=== PATIENT | male | born 1955 | race Caucasian/White ===

== ENCOUNTER 2019-12-28 09:46 | Day surgery (SDC) | payer OTHER, SELFPAY ==
[2019-12-24 20:51] VITALS: BMI 31.8
--- NOTE | 2019-12-27 09:17 | P.CONAN_ITS ---
Documented by User: Marlene Dodge 12/27/19 09:19 HPI - Anesthesia Eval Consult details Narrative: 64yo M for Colonoscopy [facility] Past Medical History Medical History (Updated 12/27/19 @ 09:17 by Marlene Dodge) Back pain Diabetes Glaucoma HTN (hypertension) Hypercholesteremia Lumbar disc disease Psoriasis Seizure disorder Shortness of breath on exertion Squamous cell carcinoma of skin of chest Surgical History Surgical History H/O nasal polypectomy History of colonoscopy Social History Social History Smoking Status: Never smoker Use of substances other than those prescribed or required for medical reasons: Yes Substance Use Frequency: Weekly Advance Directives: Yes Advance Directives Information Provided: Yes Advance Directives on File: Yes Advance Directives Date on File: 03/25/14 Meds Allergies Allergy/AdvReac Type Severity Reaction Status Date / Time shellfish derived AdvReac Intermediate Gastrointestinal Verified 12/25/19 10:00 Upset Shellfish Allergy Intermediate ITCHING/CHEST Uncoded 12/25/19 10:00 PRESSURE shellfish Allergy Unknown Uncoded 12/25/19 10:00 Home Medications Medication Instructions Recorded Confirmed Type atorvastatin 40 tab PO DAILY 12/24/19 12/24/19 History lisinopril 1 tab PO DAILY 12/24/19 12/24/19 History metformin 1 tab PO BID 12/24/19 12/24/19 History montelukast 1 tab PO DAILY 12/24/19 12/24/19 History phenytoin sodium extended 400 mg PO DAILY 12/24/19 12/24/19 History triamcinolone acetonide 1 applic TOPICAL DAILY 12/24/19 12/24/19 History aspirin 325 mg PO DAILY 12/28/19 12/28/19 History timolol maleate drp 12/28/19 History Exam Exam Date and Time: December 27, 2019 0917 Height,Weight and Vital Signs: Height 5 ft 10 in Weight 100.698 kg Pertinent Lab Results Pertinent Lab Results: Laboratory Tests 09/11/19 09/11/19 13:30 13:30 WBC 5.2 Hgb 14.6 Hct 42.6 Plt Count 146 L Sodium 139 Potassium 4.2 Chloride 101 BUN 28 H Creatinine 1.37 Assessment and Plan Assessment Anesthesia Assessment: Chart Reviewed Documented by User: Bibi Márquez 12/28/19 11:57 PMFSH Past Medical History Medical History (Updated 12/27/19 @ 09:17 by Marlene Dodge) Back pain Diabetes Glaucoma HTN (hypertension) Hypercholesteremia Lumbar disc disease Psoriasis Seizure disorder Shortness of breath on exertion Squamous cell carcinoma of skin of chest Family History Family history of problems with anesthesia: No Surgical History Surgical History H/O nasal polypectomy History of colonoscopy History of Problems with Anesthesia: No Social History Social History Smoking Status: Never smoker Use of substances other than those prescribed or required for medical reasons: Yes Substance Use Frequency: Weekly Advance Directives: Yes Advance Directives Information Provided: Yes Advance Directives on File: Yes Advance Directives Date on File: 03/25/14 Meds Allergies Allergy/AdvReac Type Severity Reaction Status Date / Time shellfish derived AdvReac Intermediate Gastrointestinal Verified 12/25/19 10:00 Upset Shellfish Allergy Intermediate ITCHING/CHEST Uncoded 12/25/19 10:00 PRESSURE shellfish Allergy Unknown Uncoded 12/25/19 10:00 Home Medications Medication Instructions Recorded Confirmed Type atorvastatin 40 tab PO DAILY 12/24/19 12/24/19 History lisinopril 1 tab PO DAILY 12/24/19 12/24/19 History metformin 1 tab PO BID 12/24/19 12/24/19 History montelukast 1 tab PO DAILY 12/24/19 12/24/19 History phenytoin sodium extended 400 mg PO DAILY 12/24/19 12/24/19 History triamcinolone acetonide 1 applic TOPICAL DAILY 12/24/19 12/24/19 History aspirin 325 mg PO DAILY 12/28/19 12/28/19 History timolol maleate drp 12/28/19 History Exam Height,Weight and Vital Signs: Vital Signs Temp Pulse Resp BP Pulse Ox 12/28/19 10:15 98 F 77 16 153/91 H 97 Pertinent Lab Results Pertinent Lab Results: Lab Results 12/28/19 Range/Units 10:10 POC Glucose 182 H (60-115) mg/dL Airway Mallampati Class: II TM Dist: >3cm Neck ROM: Full Heart: RRR Lungs: CTAB Assessment and Plan Assessment Anesthesia Assessment: Anesthesia Plan Discussed and Chart Reviewed Final Anesthetic Review NPO: Yes ASA Class: III Final Preanesthetic Review: No Changes in Pt Med Stat, Meds/Allgs Chart Reviewed, Consent Obtained/Reviewed and Anes Risks/Benef Reviewed Patient Risk: Intermediate Anesthetic Plan Anesthetic Plan: MAC: Disposition: Standard PACU
[2019-12-28 10:14] LABS: Glucose, Whole Blood 182 mg/dL (60-115)
[2019-12-28 10:15] VITALS: BP 153/91; PULSE 77; RESP 16; TEMP 36.6; O2SAT 97
--- NOTE | 2019-12-28 11:19 | MHC.SHP ---
Pre-Procedural Eval Section A The patient is an INPATIENT: No Changes since office visit: No Cold of Flu in the past 2 weeks, No New Medical Problems, No Changes in Medication and No Patient answered all questions The History & Physical has been completed within 30 days and I have reviewed it.: Yes Section B Chief Complaint: Screening Allergies: Allergies Allergy/AdvReac Type Severity Reaction Status Date / Time shellfish derived AdvReac Intermediate Gastrointestinal Verified 12/25/19 10:00 Upset Shellfish Allergy Intermediate ITCHING/CHEST Uncoded 12/25/19 10:00 PRESSURE shellfish Allergy Unknown Uncoded 12/25/19 10:00 Plan Patient has been examined and remains a candidate for the planned procedure
[2019-12-28] MEDS: Lactated Ringers 1,000 ML 100 ML IVCONT (11:26)
[2019-12-28 11:52] VITALS: BP 132/88; PULSE 72; RESP 16; TEMP 36.1; O2SAT 97
--- NOTE | 2019-12-28 11:59 | PM.OP ---
Brief Operative Note Date of procedure: 12/28/19 Pre-op diagnosis: screening Post-op diagnosis: same (colon polyp) Procedure: colonoscopy Surgeon: Demetrius Nicole Anesthesia: MAC Estimated blood loss (mL): 0 Pathology: other (polyp 40 cm) Condition: stable Disposition: PACU
[2019-12-28 12:07] VITALS: BP 140/89; PULSE 73; RESP 18; O2SAT 96
[2019-12-28 12:22] VITALS: BP 159/93; PULSE 73; RESP 18; TEMP 36.2; O2SAT 97
--- NOTE | 2019-12-28 12:45 | OP_ITS ---
SURGEON: Demetrius Nicole MD INDICATIONS: Colon cancer screening and prior history of colon polyps. PREOPERATIVE DIAGNOSIS: POSTOPERATIVE DIAGNOSIS: PROCEDURE PERFORMED: Colonoscopy to the terminal ileum with snare polypectomy. ESTIMATED BLOOD LOSS: COMPLICATIONS: ANESTHESIA: ASSISTANTS: SPECIMENS: MEDICATIONS: Monitored anesthesia care. DESCRIPTION OF PROCEDURE: History and physical performed. The risks and benefits of the procedure were explained to the patient. Informed consent was obtained. The patient was placed in left lateral decubitus position. A digital rectal exam was performed and was found to be normal. The Olympus pediatric video colonoscope was introduced into the rectum and advanced to the cecum without difficulty. The cecum was identified by transillumination, palpation, and identification of ileocecal valve. Examination was performed and the scope was removed. He tolerated the procedure well and was taken to recovery area in stable condition. FINDINGS: The terminal ileum was examined and appeared normal. The visualized colonic mucosa was normal. The quality of the prep was good. A single polyp measuring approximately 6 mm at 40 cm from the anal verge was removed with a snare and recovered via suction. No other polyps were identified. Retroflexed examination showed small internal hemorrhoids. IMPRESSION: Colon polyp. RECOMMENDATION: Follow up the biopsy results. MD ROBBIN Javier/CATARINA / [id number]
--- NOTE | 2019-12-28 12:53 | HO.POSTANES ---
Post Anesthesia Evaluation Post Anesthesia Evaluation Vital Signs: Vital Signs Temp Pulse Resp BP Pulse Ox 12/28/19 12:22 97.1 F 73 18 159/93 H 97 12/28/19 12:07 73 18 140/89 H 96 12/28/19 11:52 96.9 F 72 16 132/88 97 12/28/19 10:15 98 F 77 16 153/91 H 97 Anesthesia: Monitored (TIVA) Mental Status: Awake Pain Control: Satisfactory Nausea/Vomiting: None Hydration: Adequate Anesthesia-Related Issues: No Anes. Related Issues
== END 2019-12-28 13:15 | disposition home or self-care (01) ==
PROVIDERS: PCP Internal Medicine; Visit Provider Internal Medicine Gastroenterology
PROC: 0DJD8ZZ Inspection of Lower Intestinal Tract, Via Natural or Artificial Opening Endoscopic (ICD-10-PCS; CPT 45378; principal; 2019-12-28 11:20)
DX: Z12.11 Encounter for screening for malignant neoplasm of colon (principal); Z86.010 Personal history of colon polyps; K63.5 Polyp of colon; K64.8 Other hemorrhoids; I10 Essential (primary) hypertension; E11.9 Type 2 diabetes mellitus without complications; G40.909 Epilepsy, unspecified, not intractable, without status epilepticus; Z86.19 Personal history of other infectious and parasitic diseases; Z85.828 Personal history of other malignant neoplasm of skin; Z79.84 Long term (current) use of oral hypoglycemic drugs; Z79.899 Other long term (current) drug therapy; Z79.82 Long term (current) use of aspirin
CPT/HCPCS: 45385; 82947; 88305; J2250

== ENCOUNTER 2020-04-08 13:34 | Outpatient (REF) | payer OTHER, SELFPAY ==
[2020-04-08 16:28] LABS: MANUAL DIFF FLAG NO
[2020-04-08 16:30] LABS: Glucose Urine UA NEG (NEG); Leukocyte Esterase Urine NEG (NEG); Nitrite Urine NEG (NEG); PH 6.5 (5.0-8.0); Urine Blood NEG (NEG); Urine Ketones NEG (NEG); Urine Protein NEG (NEG-TRACE)
[2020-04-08 16:32] LABS: Appearance Urine CLEAR; Basophils Percent Auto 0.8 % (0-2); Color Urine YELLOW; Eosinophils Absolute Auto 0.3 X10*3/uL (0.0-0.4); Eosinophils Percent Auto 6.8 % (0-4); Hematocrit 42.8 % (42-52); Hemoglobin 14.3 g/dl (14.0-18.0); Mean Corpuscular HGB Conc 33.4 g/dl (31.0-36.0); Mean Corpuscular Volume 92.6 fL (80-98); Mean Platelet Volume 10.4 fL (9.4-12.4); Monocytes Absolute Auto 0.4 X10*3/uL (0.1-1.2); Monocytes Percent Auto 10.4 % (2-11); Platelet Count 156 X10*3/uL (160-400); Red Blood Count 4.62 X10*6/uL (4.60-5.80); Red Cell Distribution Width 13.4 % (11.0-16.0); White Blood Count 3.7 X10*3/uL (4.8-10.8)
[2020-04-08 16:34] LABS: Bacteria Urine TRACE /LPF; RBC Urine 0-2 /HPF (0); Squamous Epithelial Cell Urine TRACE /LPF; WBC Urine 0-2 /HPF (0-4)
[2020-04-08 16:48] LABS: Alanine Aminotransferase 59 U/L (0-40); Albumin Level 4.6 g/dL (3.5-5.0); Alkaline Phosphatase 52 U/L (39-117); Anion Gap 17 (12-20); Aspartate Amino Transferase 29 U/L (5-37); Bilirubin Total 0.5 mg/dL (0.0-1.0); Blood Urea Nitrogen 16 mg/dL (9-16); Calcium 9.4 mg/dL (8.4-10.2); Carbon Dioxide 28 mmol/L (22-29); Chloride 102 mmol/L (96-108); Cholesterol 174 mg/dL; Estimated Glomerular Filt Rate > 60; Glucose Fasting 143 mg/dL (60-99); HDL Cholesterol 42 mg/dL; LDL Cholesterol Calculated 78 mg/dl; Potassium 4.7 mmol/L (3.3-5.1); Sodium 142 mmol/L (135-145); Total Protein 7.6 g/dL (6.5-8.0); Triglycerides 272 mg/dL
[2020-04-08 16:55] LABS: Creatinine Urine 95.83 mg/dL; Microalbum/Creatinine Ratio Ur 11.4 ug/mg cr
[2020-04-08 17:08] LABS: Prostate Specific Antigen 0.53 ng/mL (<0.05-4.0)
[2020-04-08 17:25] LABS: Estimated Average Glucose 140 mg/dL; Hemoglobin A1c % 6.5 %
[2020-04-09 14:21] LABS: Phenytoin, Free/Unbound <0.5 mg/L (1.0-2.0)
== END 2020-04-08 13:35 | disposition home or self-care (01) ==
LOC: HO.HMGCLDS 13:34
PROVIDERS: PCP Internal Medicine; Visit Provider Internal Medicine
DX: E11.9 Type 2 diabetes mellitus without complications (principal); I10 Essential (primary) hypertension; E78.2 Mixed hyperlipidemia; G40.909 Epilepsy, unspecified, not intractable, without status epilepticus; L40.9 Psoriasis, unspecified; J30.2 Other seasonal allergic rhinitis
CPT/HCPCS: 36415; 80053; 80061; 80186; 81001; 82043; 83036; 84153; 85025

== ENCOUNTER 2020-07-04 14:36 | Outpatient (REF) | payer OTHER, SELFPAY ==
[2020-07-04 16:42] LABS: MANUAL DIFF FLAG NO
[2020-07-04 16:49] LABS: Basophils Percent Auto 0.6 % (0-2); Eosinophils Absolute Auto 0.5 X10*3/uL (0.0-0.4); Eosinophils Percent Auto 10.4 % (0-4); Hematocrit 39.1 % (42-52); Hemoglobin 12.9 g/dl (14.0-18.0); Imm Gran Abs Auto 0.01 X10*3/uL (0.00-0.03); Imm Gran Pct Auto 0.2 % (0.0-0.4); Lymphocytes Absolute Auto 1.3 X10*3/uL (1.2-4.9); Lymphocytes Percent Auto 27.8 % (20-40); Mean Corpuscular Hemoglobin 30.5 pg (27.0-33.0); Mean Corpuscular Volume 92.4 fL (80-98); Mean Platelet Volume 10.6 fL (9.4-12.4); Monocytes Absolute Auto 0.4 X10*3/uL (0.1-1.2); Monocytes Percent Auto 8.7 % (2-11); Neutrophils Absolute Auto 2.5 X10*3/uL (2.0-8.3); Neutrophils Percent Auto 52.3 % (45-73); Platelet Count 170 X10*3/uL (160-400); Red Blood Count 4.23 X10*6/uL (4.60-5.80); Red Cell Distribution Width 13.2 % (11.0-16.0); White Blood Count 4.8 X10*3/uL (4.8-10.8)
[2020-07-05 14:31] LABS: Phenytoin, Free/Unbound 0.6 mg/L (1.0-2.0)
== END 2020-07-04 14:37 | disposition home or self-care (01) ==
LOC: HO.HMGCLDS 14:36
PROVIDERS: PCP Internal Medicine; Visit Provider Internal Medicine
DX: G40.909 Epilepsy, unspecified, not intractable, without status epilepticus (principal)
CPT/HCPCS: 36415; 80186; 85025

== ENCOUNTER 2021-09-10 11:05 | Outpatient (REF) | payer OTHER, SELFPAY ==
[2021-09-10 13:46] LABS: MANUAL DIFF FLAG NO
[2021-09-10 13:56] LABS: Basophils Percent Auto 0.7 % (0-2); Eosinophils Absolute Auto 0.3 X10*3/uL (0.0-0.4); Eosinophils Percent Auto 6.7 % (0-4); Hematocrit 39.9 % (42.0-52.0); Hemoglobin 13.7 g/dl (14.0-18.0); Imm Gran Abs Auto 0.01 X10*3/uL (0.00-0.03); Imm Gran Pct Auto 0.2 % (0.0-0.4); Lymphocytes Absolute Auto 1.2 X10*3/uL (1.2-4.9); Lymphocytes Percent Auto 27.9 % (20-40); Mean Corpuscular HGB Conc 34.3 g/dl (31.0-36.0); Mean Corpuscular Hemoglobin 31.9 pg (27.0-33.0); Mean Platelet Volume 10.2 fL (9.4-12.4); Monocytes Absolute Auto 0.4 X10*3/uL (0.1-1.2); Monocytes Percent Auto 8.1 % (2-11); Neutrophils Absolute Auto 2.5 x10*3/uL (2.0-8.3); Neutrophils Percent Auto 56.4 % (45-73); Platelet Count 144 X10*3/uL (160-400); Red Blood Count 4.29 X10*6/uL (4.60-5.80); Red Cell Distribution Width 13.1 % (11.0-16.0); White Blood Count 4.3 X10*3/uL (4.8-10.8)
[2021-09-10 13:58] LABS: Appearance Urine CLEAR; Color Urine YELLOW; Glucose Urine UA NEG (NEG); Leukocyte Esterase Urine NEG (NEG); Nitrite Urine NEG (NEG); PH 5.5 (5.0-8.0); Specific Gravity - Urine 1.025 (1.005-1.025); Urine Blood NEG (NEG); Urine Ketones NEG (NEG); Urine Protein NEG (NEG-TRACE)
[2021-09-10 14:04] LABS: Alanine Aminotransferase 40 U/L (0-40); Albumin Level 4.1 g/dL (3.5-5.0); Alkaline Phosphatase 53 U/L (39-117); Anion Gap 13 (12-20); Aspartate Amino Transferase 24 U/L (5-37); Bilirubin Total 0.3 mg/dL (0.0-1.0); Blood Urea Nitrogen 22 mg/dL (9-16); Calcium 9.4 mg/dL (8.4-10.2); Carbon Dioxide 27 mmol/L (22-29); Chloride 105 mmol/L (96-108); Cholesterol 191 mg/dL; Estimated Glomerular Filt Rate 56; Glucose Fasting 172 mg/dL (60-99); HDL Cholesterol 50 mg/dL; LDL Cholesterol Calculated 95 mg/dl; Potassium 4.5 mmol/L (3.3-5.1); Sodium 140 mmol/L (135-145); Total Protein 7.1 g/dL (6.5-8.0); Triglycerides 231 mg/dL
[2021-09-10 14:09] LABS: Estimated Average Glucose 146 mg/dL; Hemoglobin A1c % 6.7 %
[2021-09-10 14:11] LABS: RBC Urine 0-2 /HPF (0); WBC Urine 0-2 /HPF (0-4)
[2021-09-10 14:25] LABS: PSA,Total (Free>4and<10) 0.44 ng/mL (0.00-4.00); Thyroid Stimulating Hormone 1.79 uIU/mL (0.32-4.0); Vitamin D 25-OH Total 38.1 ng/mL (>30)
[2021-09-10 14:30] LABS: Phenytoin Dilantin 8.7 ug/mL (10.0-20.0)
[2021-09-10 14:42] LABS: Vitamin B12 433 pg/mL (200-900)
[2021-09-10 14:51] LABS: Folate 19.9 ng/mL (> or = 4.0)
[2021-09-10 15:02] LABS: Creatinine Urine 122.52 mg/dL; Microalbum/Creatinine Ratio Ur 69.3 ug/mg cr
== END 2021-09-10 11:06 | disposition home or self-care (01) ==
LOC: HO.HMGCLDS 11:05
PROVIDERS: PCP Internal Medicine; Visit Provider Internal Medicine
DX: Z12.5 Encounter for screening for malignant neoplasm of prostate (principal); I10 Essential (primary) hypertension; E78.2 Mixed hyperlipidemia; E11.9 Type 2 diabetes mellitus without complications; G40.909 Epilepsy, unspecified, not intractable, without status epilepticus; Z79.899 Other long term (current) drug therapy
CPT/HCPCS: 36415; 80053; 80061; 80185; 81001; 82043; 82306; 82607; 82746; 83036; 84153; 84443; 85025

== ENCOUNTER 2021-10-16 13:07 | Outpatient (REF) | payer OTHER, SELFPAY ==
--- NOTE | ~2021-10-16 | XR_ITS ---
EXAMINATION: XR HAND, LEFT CLINICAL INFORMATION: Pain hand. COMPARISON: None TECHNIQUE: PA, lateral, and oblique views of the left hand. FINDINGS: No acute or healing fracture, dislocation, destructive process. Bony mineralization normal. No periostitis. No focal joint narrowing. No erosive changes. There are some vascular calcifications distal forearm. XR/XR hand LT min 3V IMPRESSION: No fracture, destructive process, or focal arthropathy.
== END 2021-10-16 13:08 | disposition home or self-care (01) ==
LOC: HO.HOSX 13:07
PROVIDERS: Visit Provider Physician Assistant
DX: M79.642 Pain in left hand (principal)
CPT/HCPCS: 73130

== ENCOUNTER 2021-11-09 09:33 | Day surgery (SDC) | payer MEDICARE, OTHER, SELFPAY ==
[2021-11-09 11:04] VITALS: BMI 31.5
[2021-11-09 11:08] VITALS: BP 174/106; PULSE 75; RESP 16; TEMP 36.4; O2SAT 97
[2021-11-09 12:45] VITALS: BP 179/92; PULSE 77; RESP 16; TEMP 36.7; O2SAT 96
--- NOTE | 2021-11-09 12:48 | P.OP_ITS ---
Operative Note Operative Note Date of Service: 11/09/21 Narrative: Operative Note Preop diagnosis: 1. Left middle finger Trigger finger Postop diagnosis: 1. Left middle finger Trigger finger Procedure: 1. Left middle finger A1 haydee release Surgeon: Glenny Gerardo MD Anesthesia: local block using 1% lidocaine with epinephrine Findings: No locking or catching after A1 haydee release EBL: Less than 5 mL Tourniquet time: None Specimens: None Complications: None Disposition: Brought to recovery room in stable condition Plan: Follow-up for 10-14 days for wound check and suture removal Indications: The patient is a 65 years old, with a left middle finger trigger finger that has been unresponsive to nonoperative management. The risks and benefits of operative treatment including but not limited to risk of damage to blood vessels, nerves, tendons, infection, persistent pain, persistent symptoms, recurrence or possible need for additional surgery were discussed with the patient and the patient wishes to proceed with surgery. Procedure: Once consent was obtained a local block was performed in the preop area using a combination of 1% lidocaine with epinephrine. The patient was then brought back to the operating suite and placed on the operative table in supine position. A tourniquet was applied to the proximal aspect of the left upper extremity and the limb was prepped and draped in a standard surgical fashion. Once assured that we had a good block, a 1.5 cm oblique incision was made centered over the A1 haydee of the left middle finger . The incision was made through the skin to the subcutaneous tissues using a #15 blade. Careful dissection was made down to the level of the A1 haydee using tenotomy scissors, with care being taken to protect the nearby neurovascular structures. A longitudinal incision was made in the A1 haydee 1st using a #15 blade, then using tenotomy scissors under direct visualization. The A1 haydee was noted to be thickened. Following our A1 haydee release, we no longer saw any locking or catching of the digit with flexion and extension. Once satisfied with our A1 haydee release the wound was copiously irrigated with normal saline and hemostasis was obtained with a brief period of local pressure. The skin edges were reapproximated with some 5.0 nylon suture material and a sterile dressing was applied. The patient appears to have tolerated the procedure well and with no comp lications. All digits were well vascularized at the conclusion of the case.
--- NOTE | 2021-11-09 12:48 | MHC.SHP ---
Pre-Procedural Eval Section A Date of Service: 11/09/21 The patient is an INPATIENT: No The History & Physical has been completed within 30 days and I have reviewed it.: Yes Section B Chief Complaint: Trigger finger, left middle finger Allergies: Allergies Allergy/AdvReac Type Severity Reaction Status Date / Time shellfish derived AdvReac Intermediate Gastrointestinal Verified 11/04/21 09:20 Upset Shellfish Allergy Intermediate ITCHING/CHEST Uncoded 11/04/21 09:20 PRESSURE shellfish Allergy Unknown Unknown Uncoded 11/04/21 09:20 Plan I have reviewed the history and physical and performed a pertinent physical examination on my patient. No changes have occurred unless specified.
== END 2021-11-09 13:13 | disposition home or self-care (01) ==
PROVIDERS: PCP Internal Medicine; Visit Provider Orthopaedic Surgery
PROC: (CPT 26055; principal; 2021-11-09 10:30)
DX: M65.332 Trigger finger, left middle finger (principal); E11.9 Type 2 diabetes mellitus without complications; I10 Essential (primary) hypertension; E78.00 Pure hypercholesterolemia, unspecified; G40.909 Epilepsy, unspecified, not intractable, without status epilepticus; H40.9 Unspecified glaucoma; L40.9 Psoriasis, unspecified
CPT/HCPCS: 26055; J0171

== ENCOUNTER → 2021-11-24 10:58 | Outpatient (BNVA) | payer MEDICARE, OTHER, SELFPAY | PROVIDERS: PCP Internal Medicine; Visit Provider Orthopaedic Surgery | DX: M65.332 Trigger finger, left middle finger (principal) | CPT/HCPCS: 99212 ==

== ENCOUNTER 2023-01-20 10:56 | Outpatient (REF) | payer MEDICAID, SELFPAY ==
[2023-01-20 13:18] LABS: MANUAL DIFF FLAG NO
[2023-01-20 13:27] LABS: Appearance Urine Clear; Color Urine Dark Yellow; Glucose Urine UA Negative (Negative); Leukocyte Esterase Urine Negative (Negative); Nitrite Urine Negative (Negative); Specific Gravity - Urine 1.025 (1.005-1.025); UMIC TRIGGER UA YES; Urine Blood Negative (Negative); Urine Ketones Negative (Negative); Urine Protein 100 (2+) mg/dL (Neg-Trace)
[2023-01-20 13:29] LABS: Basophils Percent Auto 0.9 % (0-2); Eosinophils Absolute Auto 0.5 X10*3/uL (0.0-0.4); Eosinophils Percent Auto 12.6 % (0-4); Hematocrit 39.5 % (42.0-52.0); Hemoglobin 13.3 g/dl (14.0-18.0); Imm Gran Abs Auto 0.01 X10*3/uL (0.00-0.03); Imm Gran Pct Auto 0.2 % (0.0-0.4); Lymphocytes Absolute Auto 1.1 X10*3/uL (1.2-4.9); Lymphocytes Percent Auto 25.9 % (20-40); Mean Corpuscular HGB Conc 33.7 g/dl (31.0-36.0); Mean Corpuscular Hemoglobin 31.8 pg (27.0-33.0); Mean Corpuscular Volume 94.5 fL (80.0-98.0); Mean Platelet Volume 10.4 fL (9.4-12.4); Monocytes Absolute Auto 0.4 X10*3/uL (0.1-1.2); Monocytes Percent Auto 9.8 % (2-11); Neutrophils Absolute Auto 2.2 x10*3/uL (2.0-8.3); Neutrophils Percent Auto 50.6 % (45-73); Platelet Count 167 X10*3/uL (160-400); Red Blood Count 4.18 X10*6/uL (4.60-5.80); White Blood Count 4.3 X10*3/uL (4.8-10.8)
[2023-01-20 13:31] LABS: Bacteria Urine None Seen (None Seen); Hyaline Casts Urine 0-2 /LPF (0-2); RBC Urine 0-2 /HPF (0-2); Squamous Epithelial Cell Urine 0-2 /HPF (0-2); WBC Urine 0-5 /HPF (0-5)
[2023-01-20 13:44] LABS: Estimated Average Glucose 154 mg/dL
[2023-01-20 13:56] LABS: PSA,Total (Free>4and<10) 0.43 ng/mL (0.00-4.00)
[2023-01-20 14:06] LABS: Alanine Aminotransferase 35 U/L (0-40); Albumin Level 3.9 g/dL (3.5-5.0); Alkaline Phosphatase 55 U/L (39-117); Anion Gap 13 (12-20); Aspartate Amino Transferase 22 U/L (5-37); Bilirubin Total 0.4 mg/dL (0.0-1.0); Blood Urea Nitrogen 22 mg/dL (9-16); Calcium 9.6 mg/dL (8.4-10.2); Carbon Dioxide 29 mmol/L (22-29); Chloride 102 mmol/L (96-108); Cholesterol 216 mg/dL (<200); Estimated Glomerular Filt Rate > 60; Glucose Fasting 200 mg/dL (60-99); HDL Cholesterol 47 mg/dL (>40); LDL Cholesterol Calculated 116 mg/dL (<100); Potassium 4.7 mmol/L (3.3-5.1); Sodium 139 mmol/L (135-145); Total Protein 7.2 g/dL (6.5-8.0); Triglycerides 265 mg/dL (<150)
[2023-01-20 14:07] LABS: Thyroid Stimulating Hormone 2.45 uIU/mL (0.32-4.0); Vitamin D 25-OH Total 46.9 ng/mL (>30)
[2023-01-20 14:13] LABS: Creatinine Urine 118.61 mg/dL
[2023-01-20 14:20] LABS: Microalbum/Creatinine Ratio Ur 658.4 ug/mg cr (<30)
[2023-01-20 14:57] LABS: Phenytoin Dilantin 8.1 ug/mL (10.0-20.0)
== END 2023-01-20 10:57 | disposition home or self-care (01) ==
LOC: HO.HMGCLDS 10:56
PROVIDERS: PCP Internal Medicine; Visit Provider Internal Medicine
DX: Z00.00 Encounter for general adult medical examination without abnormal findings (principal); Z12.5 Encounter for screening for malignant neoplasm of prostate; I10 Essential (primary) hypertension; E11.9 Type 2 diabetes mellitus without complications; E78.2 Mixed hyperlipidemia; G40.909 Epilepsy, unspecified, not intractable, without status epilepticus
CPT/HCPCS: 36415; 80053; 80061; 80185; 81001; 82043; 82306; 82570; 83036; 84153; 84443; 85025

== ENCOUNTER 2023-03-01 12:53 | Outpatient (AMB) | payer MEDICAID, MEDICARE, SELFPAY ==
[2023-03-01 13:24] VITALS: BP 140/78; PULSE 87; TEMP 37.1; O2SAT 97; BMI 31.6
--- NOTE | 2023-03-01 13:24 | MHC.OFFWIV ---
Intake Vital Signs 03/01/23 13:24 Height 5 ft 10 in Weight 220 lb BMI 31.6 BP 140/78 H Blood Pressure Location Rt brachial Position Sitting Pulse 87 Pulse Source Pulse Oximeter Temp 98.8 F Temp Source Oral Pulse Oximetry (%) 97 Oxygen Delivery Method Room Air Intake Visit Reasons: EP,left leg pain due to fall in snow Intake Note: Patient fell on ice last night, and injured left lower leg. Patient states he is unsure of swelling or bruising. Patient Tobacco Use Status: Never used Tobacco Allergies shellfish derived Adverse Reaction (Intermediate, Verified 03/01/23 13:25) Gastrointestinal Upset Shellfish Allergy (Intermediate, Uncoded 03/01/23 13:25) ITCHING/CHEST PRESSURE shellfish Allergy (Unknown, Uncoded 03/01/23 13:25) Unknown Do you need a note to return to daycare/school/sports/work: No HPI HPI Comments History of Present Illness Details Patient is a 67-year-old male in today for a sick visit. He states that last night while he was shoveling snow he slipped on a patch of ice, and fell straight on his left lower leg. Since then he has not been able to bare weight on the affected limb. Denies any numbness, tingling, swelling. No bruising. Patient broke his leg 4 years prior and states that this feels identical. 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 States pain radiates down to his foot. Skin : No Skin Lesions, No rash Neuro : No Weakness, No Numbness, No Dizziness, No Headache Psych : No Anxiety/Panic, No Depression Heme/Lymph: No Bruising, No Bleeding,No Lymphadenopathy All other systems reviewed and are negative Physical Exam Vital Signs: Last Vital Signs Temp 98.8 F 03/01/23 13:24 Pulse 87 03/01/23 13:24 BP 140/78 H 03/01/23 13:24 Pulse Ox 97 03/01/23 13:24 Oxygen Delivery Method Room Air 03/01/23 13:24 BMI result Body Mass Index 31.6 Const Other: Appearance: Alert.? Oriented X3.? No acute distress.? CVS: Normal heart rate and rhythm.? Pulses plus 2. ? Respiratory: No respiratory distress.? Breath sounds normal.? Skin: Skin warm and dry.? Normal skin color.? Normal skin turgor.? Extremities: No lower extremity edema. Limited range of motion of flexion and extension of left foot. Patient can not bare weight on limb. Neuro: Oriented X 3.? No motor deficit.? No sensory deficit. CN 2-12 intact Results Reviewed Results Reviewed: Will call patient with x-ray results Assessment & Plan Assessment & Plan (1) Left leg pain: Comment: Will obtain X-ray. Patient arrived with crutches. Code(s): M79.605 - Pain in left leg Plan Initial evaluation of patient's x-ray demonstrated fracture left lower leg. Patient has his own set of crutches that he came to the office with. He has his own orthopedic boot at home which he will be utilizing. Will refer to foreclosure specialist. Will provide medicine for pain control and management Orders: Orders XR tibia fibula LT 2V Today M79.605 - Pain in left leg XR ankle LT 2V Today M79.605 - Pain in left leg XR foot LT 2V Today M79.605 - Pain in left leg Referrals Orthopedics Referral M79.605 - Pain in left leg Medications: New tramadol 50 mg PO BID PRN 14 tabs 0RF pain Patient Instructions: Take your medications as prescribed. If you were prescribed antibiotics today, it is important that you take your medication to their entirety, do not skip any doses, do not finish them early. Follow-up with your primary care provider this week. Return to the emergency department with new or worsening symptoms. Such as fevers, chills, chest pain, shortness of breath, nausea, vomiting, dizziness, headache, vision changes, lethargy In case of emergency call 911 Coding Level of Care Code Est Pt Level 3 (17723) Diagnoses Left leg pain M79.605 Time Spent (min) 30
== END 2023-03-01 15:02 | disposition home or self-care (01) ==
PROVIDERS: PCP Internal Medicine; Visit Provider Nurse Practitioner Primary Care
DX: M79.605 Pain in left leg (principal)
CPT/HCPCS: 99213

== ENCOUNTER 2023-03-01 14:17 | Outpatient (REF) | payer MEDICARE, SELFPAY ==
--- NOTE | ~2023-03-01 | XR_ITS ---
EXAMINATION: XR TIBIA-FIBULA, LEFT. XR ANKLE, LEFT. XR FOOT, LEFT. CLINICAL INFORMATION: Left leg pain COMPARISON: None. TECHNIQUE: AP and lateral radiographs of the left tibia fibula. AP and lateral radiographs of the left ankle. 3 views of the left foot. FINDINGS: Minimally displaced, oblique fracture of the distal fibula. Lateral soft tissue swelling. No additional fractures. The ankle mortise is preserved. Scattered vascular calcifications are noted. Moderate 1st MTP joint osteoarthritis. XR/XR tibia fibula LT 2V IMPRESSION: Minimally displaced oblique fracture of the distal fibula with overlying soft tissue swelling. No additional fractures. Moderate 1st MTP joint osteoarthritis.
--- NOTE | ~2023-03-01 | XR_ITS ---
EXAMINATION: XR TIBIA-FIBULA, LEFT. XR ANKLE, LEFT. XR FOOT, LEFT. CLINICAL INFORMATION: Left leg pain COMPARISON: None. TECHNIQUE: AP and lateral radiographs of the left tibia fibula. AP and lateral radiographs of the left ankle. 3 views of the left foot. FINDINGS: Minimally displaced, oblique fracture of the distal fibula. Lateral soft tissue swelling. No additional fractures. The ankle mortise is preserved. Scattered vascular calcifications are noted. Moderate 1st MTP joint osteoarthritis. XR/XR ankle LT 2V IMPRESSION: Minimally displaced oblique fracture of the distal fibula with overlying soft tissue swelling. No additional fractures. Moderate 1st MTP joint osteoarthritis.
--- NOTE | ~2023-03-01 | XR_ITS ---
EXAMINATION: XR TIBIA-FIBULA, LEFT. XR ANKLE, LEFT. XR FOOT, LEFT. CLINICAL INFORMATION: Left leg pain COMPARISON: None. TECHNIQUE: AP and lateral radiographs of the left tibia fibula. AP and lateral radiographs of the left ankle. 3 views of the left foot. FINDINGS: Minimally displaced, oblique fracture of the distal fibula. Lateral soft tissue swelling. No additional fractures. The ankle mortise is preserved. Scattered vascular calcifications are noted. Moderate 1st MTP joint osteoarthritis. XR/XR foot LT 2V IMPRESSION: Minimally displaced oblique fracture of the distal fibula with overlying soft tissue swelling. No additional fractures. Moderate 1st MTP joint osteoarthritis.
== END 2023-03-01 14:18 | disposition home or self-care (01) ==
LOC: HO.HMGCX 14:17
PROVIDERS: PCP Internal Medicine; Visit Provider Nurse Practitioner Primary Care
DX: M79.605 Pain in left leg (principal)
CPT/HCPCS: 73590; 73600; 73620

== ENCOUNTER 2023-03-08 12:26 | Outpatient (AMB) | payer MEDICARE, SELFPAY ==
[2023-03-08 12:31] VITALS: BMI 31.6
--- NOTE | 2023-03-08 12:31 | MHC.OFFVIS ---
Intake Vital Signs 03/08/23 12:31 Height 5 ft 10 in Weight 220 lb BMI 31.6 Intake Visit Reasons: FC - left distal fib fx, DOI 03/01/22 Intake Note: Lars is a 67 year old male who presents today for a evaluation of his left fibula fx, DOI 02/28/23. Patient reports he slipped and fell landing on his left side. He states his pain is more focused on the lateral aspect of his ankle and on top of his foot. Denies numbness and tingling. Allergies shellfish derived Adverse Reaction (Intermediate, Verified 03/08/23 12:34) Gastrointestinal Upset Shellfish Allergy (Intermediate, Uncoded 03/01/23 13:25) ITCHING/CHEST PRESSURE shellfish Allergy (Unknown, Uncoded 03/01/23 13:25) Unknown HPI FC - left distal fib fx, DOI 03/01/22 HPI Details 67-year-old male who presents in the office today for an evaluation of left lower extremity pain. The patient [facility]23 status post slipping on a patch of ice on 02/28/2023. X-rays of the left lower extremity were obtained. He states he had a walking boot at home therefore none were supplied to him at this encounter. While in the office today the patient reports slipping and falling on his left side. He states the pain is located on the lateral aspect of the left ankle and top of his foot. He denies numbness or tingling. 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 Able to slightly dors/plantarflex. Sensation intact. Pedal pulse intact. Office Procedures Fracture Care Fracture Billing Code: Fracture Billing Code Assessment & Plan Assessment & Plan (1) Fracture of distal end of left fibula: Code(s): S82.832A - Other fracture of upper and lower end of left fibula, initial encounter for closed fracture Qualifiers: Encounter type: initial encounter Fracture morphology: unspecified fracture morphology Fracture type: closed Qualified Code(s): S82.832A - Other fracture of upper and lower end of left fibula, initial encounter for closed fracture Plan Mr. Botello is a 67-year-old male who presents in the office today for an evaluation of left lower extremity pain. The patient [facility]2023 status post slipping on a patch of ice on 02/28/2023. X-rays of the left lower extremity were obtained. He states he had a walking boot at home therefore none were supplied to him at this encounter. While in the office today the patient reports slipping and falling on his left side. He states the pain is located on the lateral aspect of the left ankle and top of his foot. He denies numbness or tingling. The patient will continue to wear the boot. He may weight bear as tolerated with the assistance of a walker or crutches. He will attend physical therapy to work on ROM and modalities help control edema. I educated the patient to elevate laying down with three pillows above the heart level and apply ice as needed. Follow up will be in 4 weeks with repeat x-rays, or sooner if needed. X-rays of the left lower extremity, obtained on 03/01/2023, revealed: Minimally displaced oblique fracture of the distal fibula with overlying soft tissue swelling. No additional fractures. Moderate 1st MTP joint osteoarthritis. Orders: Orders PT Evaluation and Treatment Today S82.832A - Other fracture of upper and lower end of left fibula, initial encounter for closed fracture Patient Instructions: Scribed for Grace Fabian PA-C by Shanelle Lorenzo biomedical analytical scientist, on 02/25/2023 at 12:33 pm, EST. Coding Level of Care Code New Pt Level 4 (07807) Diagnoses Closed fracture of distal end of left fibula, unspecified fracture morphology, initial encounter S82.832A Encounter type: initial encounter Fracture morphology: unspecified fracture morphology Fracture type: closed CPT Codes Fracture Care - Fracture Billing Code: Fracture Billing Code ([id number])
== END 2023-03-08 13:02 | disposition home or self-care (01) ==
PROVIDERS: PCP Internal Medicine; Visit Provider Physician Assistant
DX: S82.832A Other fracture of upper and lower end of left fibula, initial encounter for closed fracture (principal); W01.0XXA Fall on same level from slipping, tripping and stumbling without subsequent striking against object, initial encounter
CPT/HCPCS: 99214

== ENCOUNTER → 2023-03-08 12:26 | Outpatient (BNVA) | payer MEDICARE, SELFPAY | PROVIDERS: PCP Internal Medicine; Visit Provider Physician Assistant | DX: S82.832A Other fracture of upper and lower end of left fibula, initial encounter for closed fracture (principal) | CPT/HCPCS: 99212 ==

== ENCOUNTER 2023-03-21 11:04 | Outpatient (AMB) | payer MEDICARE, SELFPAY ==
--- NOTE | 2023-03-21 11:07 | A.OFFVIS_ITS ---
Intake Vital Signs 03/21/23 11:10 Height 5 ft 10 in Weight 222 lb BMI 31.9 BP 150/92 H Blood Pressure Location Lt brachial Position Sitting Respiration 12 Pulse 90 Pulse Source Pulse Oximeter Pulse Oximetry (%) 98 Oxygen Delivery Method Room Air Intake Visit Reasons: Lumbar back pain - Confirmed Allergies Shellfish Allergy (Intermediate, Uncoded 03/21/23 11:14) ITCHING/CHEST PRESSURE Medication List - Last Reconciled 03/21/23 by Allie Baig LPN amlodipine 5 mg PO DAILY aspirin 325 mg PO DAILY atorvastatin 40 tabs PO DAILY diazepam 5 mg PO DAILY PRN lisinopril 1 tab PO DAILY metformin 1 tab PO BID montelukast 1 tab PO DAILY phenytoin sodium extended 400 mg PO DAILY timolol maleate 0.5% drps tramadol 50 mg PO BID PRN triamcinolone acetonide 0.1% 1 appl topical DAILY HPI Lumbar back pain - Confirmed HPI Details 67-year-old male who presents today to t he office for an evaluation of lumbar back pain. His previous history is notable for a work-related injury from a slip and fall in 2015, following which he developed aggravated discogenic pain associated with bilateral lumbar radiculitis as well as facet-mediated pain. He underwent physical therapy and oral medication therapy with mixed results. Subsequently, he has had significant limitations in lumbar spine function. He was seeing Dr. Strange at [facility] and was recommended epidural steroid injections for his aggravated disc herniation at L4-5. He states that [employer] has not approved the requested DEVON. He also reached out to [employer] but received no response. Recently, he was seen in the walk-in clinic after slipping on a patch of ice on 02/28/2023. He underwent x-rays of the tibia, foot, and ankle. He reports slipping and falling on his left side. Today, his pain is mostly in his axial low back region, which is described as an aching burning sensation as well as numbness in his bilateral thighs and right leg. Pain is rated at 4?9/10 in intensity at night and 2-4/10 in intensity in the morning. Pain is intermittent and worse with movements, exertion, and weather changes. His last MRI scan was in 2015 at [facility]. He has not tried physical therapy in the past. He has been doing home exercises. He has also tried massage therapy. He uses cane or walker for ambulation. 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 Alert and oriented. Mood and affect appropriate. Follows and participates in conversation appropriately. Respiratory effort is unlabored. Able to transition from sit to stand unassisted. Ambulates with bilaterally normal heel strike and toe off. Straight leg raise is positive on the right. Results Reviewed Results Reviewed: EXAMINATION: MR LUMBAR SPINE WITHOUT CONTRAST 2015 CLINICAL INFORMATION: Back pain and numbness status post work injury to 12/11/15. Numbness radiating into the right thigh. COMPARISON: No relevant prior imaging. TECHNIQUE: MRI of the lumbar spine was obtained using routine sequences without contrast. FINDINGS: There is nonspecific straightening of the lumbar lordosis. Vertebral body height and alignment is otherwise maintained in the sagittal dimension. There are no acute bone marrow signal changes. Slight loss of intervertebral disc height and T2 signal intensity at multiple levels related to degenerative disc disease. The conus medullaris is located at the level of L1. No mass effect on the conus. Visualized distal cord signal intensity is normal. At L1-L2 there is a slight annular bulge. No canal stenosis. No foraminal nerve root compression. At L1-L2 and L2-L3 the annular contours are normal. No canal stenosis. No foraminal nerve root compression at these 2 levels. At L4-L5 there is a diffusely bulging disc causing ventral flattening of the thecal sac. Advanced bilateral facet degenerative change with thickening of the ligamenta flava causing dorsolateral indentation of thecal sac. No canal stenosis. There is symmetric effacement of the perineural fat causing mild to moderate compression of the foraminal segments of both L4 nerve roots. At L5-S1 there is a slight annular bulge. No canal stenosis. Mild bilateral facet degenerative change. No foraminal nerve root compression. Limited visualization of the retroperitoneal structures reveals no abnormal finding. Psoas and paraspinal muscle groups are symmetric. IMPRESSION: Multilevel degenerative spondylosis of the lumbar spine. There is no canal compromise. At L4-L5 a diffusely bulging disc in concert with bilateral facet degenerative change causes [id number] compression of the foraminal segments of both L4 nerve roots. Assessment & Plan Assessment & Plan (1) Lumbar radiculopathy: Code(s): M54.16 - Radiculopathy, lumbar region Plan A referral was provided to physical therapy since he has not been back for physical therapy in several years. The patient will receive a call to schedule an appointment. Once he completes the physical therapy, we will order an MRI scan of the lumbar spine for further evaluation if the pain is persistent. I ordered EMG study for the patient. A script was also provided to the patient. The patient will follow up via telehealth visit in two months to access the response from physical therapy and review the EMG result. Scribed for Dr. Echeverria by Piotr Richmond, medical or surgical instrument maker, on 03/21/2023. I, Dr. Echeverria, have personally reviewed and agree with the information entered by the scribe. Orders: Orders PT Evaluation and Treatment 03/21/23 M54.16 - Radiculopathy, lumbar region NE electromyogram (EMG) 03/21/23 M54.16 - Radiculopathy, lumbar region Coding Level of Care Code New Pt Level 4 (56746) Diagnoses Lumbar radiculopathy M54.16
[2023-03-21 11:10] VITALS: BP 150/92; PULSE 90; RESP 12; O2SAT 98; BMI 31.9
== END 2023-03-21 11:46 | disposition home or self-care (01) ==
PROVIDERS: PCP Internal Medicine; Referring Provider Internal Medicine; Visit Provider Internal Medicine
DX: M54.16 Radiculopathy, lumbar region (principal)
CPT/HCPCS: 99204

== ENCOUNTER → 2023-03-21 11:04 | Outpatient (BNVA) | payer MEDICARE, SELFPAY | PROVIDERS: PCP Internal Medicine; Referring Provider Internal Medicine; Visit Provider Internal Medicine | DX: M54.16 Radiculopathy, lumbar region (principal) | CPT/HCPCS: 99202 ==

== ENCOUNTER 2023-04-05 08:30 | Outpatient (REF) | payer MEDICARE, SELFPAY ==
--- NOTE | ~2023-04-05 | XR_ITS ---
EXAMINATION: XR ANKLE, LEFT CLINICAL INFORMATION: Pain left ankle COMPARISON: X-ray the left ankle February 2023 TECHNIQUE: AP, lateral, and mortise views of the left ankle. FINDINGS: The nondisplaced oblique fracture the distal fibula redemonstrated extending proximally from the level of the mortise. There is some periosteal reaction present surrounding the fracture not seen previously. Remaining bone and joints unremarkable. Arterial calcification noted XR/XR ankle LT min 3V IMPRESSION: 1. Healing nondisplaced distal fibular fracture. 2. Calcific atherosclerotic disease.
== END 2023-04-05 08:31 | disposition home or self-care (01) ==
LOC: HO.HOSX 08:30
PROVIDERS: Visit Provider Physician Assistant
DX: M25.572 Pain in left ankle and joints of left foot (principal); S82.832A Other fracture of upper and lower end of left fibula, initial encounter for closed fracture; W00.0XXA Fall on same level due to ice and snow, initial encounter; Y93.01 Activity, walking, marching and hiking; Y92.9 Unspecified place or not applicable; Y99.8 Other external cause status
CPT/HCPCS: 73610; 99212

== ENCOUNTER 2023-04-05 11:33 | Outpatient (AMB) | payer MEDICARE, SELFPAY ==
[2023-04-05 11:42] VITALS: BMI 31.9
--- NOTE | 2023-04-05 11:42 | A.OFFVIS_ITS ---
Intake Vital Signs 04/05/23 11:42 Height 5 ft 10 in Weight 222 lb BMI 31.9 Intake Visit Reasons: OV- left distal fib fx, DOI 03/01/22 Intake Note: Lars is a 67 year old male who presents today for a evaluation of his left fibula fx, DOI 02/28/23. Patient reports still having pain with movement. He states that the swelling has gone down. Allergies Shellfish Allergy (Intermediate, Uncoded 03/21/23 11:14) ITCHING/CHEST PRESSURE HPI OV- left distal fib fx, DOI 03/01/22 HPI Details 67-year-old male who presents in the off ice today for a follow up of a left distal fibular fracture, which occurred on 02/28/2023 status post slipping on the ice. I last saw the patient in the office on 03/08/2023 where he was encourage to remain in the walking boot and to weight bear as tolerated. He was also referred to physical therapy. While in the office today the patient reports still having pain with movement. He does confirm improvement with edema. 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 Able to slightly dors/plantarflex. Sensation intact. Pedal pulse intact. Assessment & Plan Assessment & Plan (1) Fracture of distal end of left fibula: Code(s): S82.832A - Other fracture of upper and lower end of left fibula, initial encounter for closed fracture Qualifiers: Encounter type: initial encounter Fracture morphology: unspecified fracture morphology Fracture type: closed Qualified Code(s): S82.832A - Other fracture of upper and lower end of left fibula, initial encounter for closed fracture Plan Mr. Botello is a 67-year-old male who presents in the office today for a follow up of a left distal fibular fracture, which occurred on 02/28/2023 status post slipping on the ice. I last saw the patient in the office on 03/08/2023 where he was encourage to remain in the walking boot and to weight bear as tolerated. He was also referred to physical therapy. While in the office today the patient reports still having pain with movement. He does confirm improvement with edema. I offered the patient formal physical therapy, however he has a friend that is a therapist that is willing to work with him. He is supposed to be getting physical therapy for his back as well. He does not want to prolong treatment for his back. The patient was educated to have the goal of weaning out of the boot within the next two weeks. Follow up will be in 4 weeks with repeat x-rays, or sooner if needed. X-rays of the left ankle which were obtained while in the office today and were reviewed by me, Grace Fabian PA-C, revealed routine healing of a left distal fibular fracture. Orders: Orders XR ankle LT min 3V Today M25.579 - Pain in unspecified ankle and joints of unspecified foot Coding Level of Care Code Global (07248) Diagnoses Closed fracture of distal end of left fibula, unspecified fracture morphology, initial encounter S82.832A Encounter type: initial encounter Fracture morphology: unspecified fracture morphology Fracture type: closed
== END 2023-04-05 11:56 | disposition home or self-care (01) ==
PROVIDERS: PCP Internal Medicine; Visit Provider Physician Assistant
DX: S82.832D Other fracture of upper and lower end of left fibula, subsequent encounter for closed fracture with routine healing (principal)
CPT/HCPCS: 99213

== ENCOUNTER 2023-05-10 14:37 | Outpatient (AMB) | payer MEDICARE, SELFPAY ==
--- NOTE | 2023-05-10 14:54 | A.OFFVIS_ITS ---
Intake Intake Visit Reasons: OV- left distal fib fx, DOI 03/01/22 Intake Note: Lars is a 67 year old male who presents today for a follow up of his left fibula fx, DOI 02/28/23. Patient reports having some soreness when making curtain movements in the ankle/great toe area. Allergies Shellfish Allergy (Intermediate, Uncoded 03/21/23 11:14) ITCHING/CHEST PRESSURE HPI OV- left distal fib fx, DOI 03/01/22 HPI Details 67-year-old male who presents in the off ice today for a follow up of a left distal fibular fracture, which occurred on 02/28/2023 status post slipping on the ice. I last saw the patient in the office on 04/05/2023 at which time he was going to begin to work with his friend on physical therapy, due to his friend being a therapist. He was instructed to begin to wean out of the boot after an additional 2 weeks. While in the office today he states has some pain in the ankle but not from the bone. He states he is having some soreness when making certain movements. He also reports pain in the great toe. 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 No ecchymosis, erythema, or edema. Full ROM with a slight discomfort. Sensation intact. Pedal pulse intact. Assessment & Plan Assessment & Plan (1) Fracture of distal end of left fibula: Code(s): S82.832A - Other fracture of upper and lower end of left fibula, initial encounter for closed fracture Qualifiers: Encounter type: initial encounter Fracture morphology: unspecified fracture morphology Fracture type: closed Qualified Code(s): S82.832A - Other fracture of upper and lower end of left fibula, initial encounter for closed fracture Plan Mr. Botello is a 67-year-old male who presents in the office today for a follow up of a left distal fibular fracture, which occurred on 02/28/2023 status post slipping on the ice. I last saw the patient in the office on 04/05/2023 at which time he was going to begin to work with his friend on physical therapy, due to his friend being a therapist. He was instructed to begin to wean out of the boot after an additional 2 weeks. While in the office today he states has some pain in the ankle but not from the bone. He states he is having some soreness when making certain movements. He also reports pain in the great toe. Patient was instructed that he does not need to wear the boot any more. We discussed the role of physical therapy but due to the patient having good ROM we have agreed to defer at this time. He was encouraged to return to normal activities as tolerated. Follow up will be PRN, or sooner if needed. X-rays of the left ankle which were obtained while in the office today and were reviewed by me, Grace Fabian PA-C, revealed routine healing of the left distal fibular fracture. Orders: Orders XR ankle LT min 3V Today M25.579 - Pain in unspecified ankle and joints of unspecified foot Patient Instructions: Scribed by Shanelle Lorenzo medical service representative, for Grace Fabian PA-C on 05/10/2023 at 2:40 pm, EST. Coding Level of Care Code Global (73670) Diagnoses Closed fracture of distal end of left fibula, unspecified fracture morphology, initial encounter S82.832A Encounter type: initial encounter Fracture morphology: unspecified fracture morphology Fracture type: closed
== END 2023-05-10 15:15 | disposition home or self-care (01) ==
PROVIDERS: PCP Internal Medicine; Visit Provider Physician Assistant
DX: S82.892D Other fracture of left lower leg, subsequent encounter for closed fracture with routine healing (principal)
CPT/HCPCS: 99213

== ENCOUNTER 2023-05-10 15:03 | Outpatient (REF) | payer MEDICARE, SELFPAY ==
--- NOTE | ~2023-05-10 | XR_ITS ---
EXAMINATION: XR ANKLE, LEFT CLINICAL INFORMATION: Pain in unspecified ankle and joints of foot. COMPARISON: 04/05/2023, 03/01/2023. TECHNIQUE: AP, lateral, and mortise views of the left ankle. FINDINGS: Redemonstration of nondisplaced oblique fracture of the distal fibula extending proximally from the level of the mortise with increased periosteal callus formation. Fracture line still visible. Vascular calcifications. Alignment stable. XR/XR ankle LT min 3V IMPRESSION: Healing distal fibular fracture.
== END 2023-05-10 15:04 | disposition home or self-care (01) ==
LOC: HO.HOSX 15:03
PROVIDERS: Visit Provider Physician Assistant
DX: S82.832D Other fracture of upper and lower end of left fibula, subsequent encounter for closed fracture with routine healing (principal)
CPT/HCPCS: 73610; 99212

== ENCOUNTER 2023-05-11 14:33 | Outpatient (REF) | payer MEDICARE, SELFPAY ==
--- NOTE | 2023-05-11 14:35 | EMG_ITS ---
Chief complaint: Back pain over 20 years duration. Right-sided sciatica. Lower extremity numbness more than 5 years' duration. Numbness from right knee to right foot. Numbness from left thigh to knee. Diagnosed diabetes 2 years ago. Reason for referral: Evaluate for lumbar radiculopathy Referred by: Dr. Echeverria Procedure done: Bilateral lower extremity NCS/EMG Precautions and/or limitations: None The limb temperature was monitored continuously and remained between 32-36 degrees C during the performance of the NCS. Nerve Conduction Studies Anti Sensory Summary Table ?Stim Site NR Onset (ms) Norm Onset (ms) Peak (ms) Norm Peak (ms) O-P Amp (?V) Norm O-P Amp Site1 Site2 Delta-0 (ms) Dist (cm) Chapo (m/s) Norm Chapo (m/s) Left Sural Anti Sensory (Lat Mall) Calf NR <4.0 >5.0 Calf Lat Mall 14.0 Right Sural Anti Sensory (Lat Mall) Calf NR <4.0 >5.0 Calf Lat Mall 14.0 Motor Summary Table ?Stim Site NR Onset (ms) Norm Onset (ms) O-P Amp (mV) Norm O-P Amp iAmp (mV) Amp (1st) (%) Site1 Site2 Delta-0 (ms) Dist (cm) Chapo (m/s) Norm Chapo (m/s) Left Peroneal Motor (Ext Dig Brev) Ankle ? 5.5 <4.0 1.5 >2.5 2.1 100.0 Ankle Ext Dig Brev 5.5 0.0 B Fib ? 13.3 1.2 1.4 80.0 B Fib Ankle 7.8 32.0 41 >40 Poplt ? 14.7 1.1 1.2 73.3 Poplt B Fib 1.4 5.0 36 >40 Right Peroneal Motor (Ext Dig Brev) Ankle ? 4.8 <4.0 4.2 >2.5 4.9 100.0 Ankle Ext Dig Brev 4.8 0.0 B Fib ? 12.7 2.5 3.1 59.5 B Fib Ankle 7.9 33.0 42 >40 Poplt ? 13.8 2.6 3.1 61.9 Poplt B Fib 1.1 6.0 55 >40 Left Tibial Motor (Abd Alvarado Brev) Ankle ? 4.5 <5 5.1 >2.5 6.8 100.0 Ankle Abd Alvarado Brev 4.5 0.0 Knee ? 16.6 1.7 2.4 33.3 Knee Ankle 12.1 40.0 33 >40 Right Tibial Motor (Abd Alvarado Brev) Ankle ? 4.2 <5 4.7 >2.5 6.2 100.0 Ankle Abd Alvarado Brev 4.2 0.0 Knee ? 14.6 3.3 4.2 70.2 Knee Ankle 10.4 40.0 38 >40 EMG ?Side Muscle Nerve Root Ins Act Fibs Psw Amp Dur Poly Recrt Int Pat Comment Right AbdHallucis MedPlantar S1-2 Nml Nml Nml Nml Nml 0 Nml Complete Right AntTibialis Dp Br Peron L4-5 Nml Nml Nml Nml Nml 0 Nml Complete Right PostTibialis Tibial L5, S1 Nml Nml Nml Nml Nml 0 Nml Complete Right MedGastroc Tibial S1-2 Nml Nml Nml Nml Nml 0 Nml Complete Right VastusMed Femoral L2-4 Nml Nml Nml Incr Incr 0 Nml Complete Left AbdHallucis MedPlantar S1-2 Nml Nml Nml Nml Nml 0 Nml Complete Left AntTibialis Dp Br Peron L4-5 Nml Nml Nml Nml Nml 0 Nml Complete Left PostTibialis Tibial L5, S1 Nml Nml Nml Nml Nml 0 Nml Complete Left MedGastroc Tibial S1-2 Incr 1+ 1+ Nml Nml 0 Nml Complete Left VastusMed Femoral L2-4 Nml Nml Nml Nml Nml 0 Nml Complete Paraspinal EMG ?Side Muscle Nerve Root Ins Act Fibs Psw Comment Right Lumbar Upper Rami Nml Nml Nml Right Lumbar Mid Rami Nml Nml Nml Right Lumbar Lower Rami Nml Nml Nml Left Lumbar Upper Rami Nml Nml Nml Left Lumbar Mid Rami Nml Nml Nml Left Lumbar Lower Rami Nml Nml Nml FINDINGS: Right peroneal nerve showed prolonged distal latency, normal amplitude and normal conduction velocity. Left peroneal nerve showed prolonged distal latency, small amplitude and slightly slow conduction velocity across fibular neck. Bilateral sural nerves were absent. All other nerves tested were within normal. Concentric needle EMG was performed in selected muscles of the bilateral lower extremity and lumbar paraspinals. Study revealed signs of electric abnormalities as shown in the table below. IMPRESSION: 1. This is an abnormal study. 2. There is electrodiagnostic findings suggestive for subacute/chronic right L4- 5 radiculopathy. 3. 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 Thank you for your kind referral. Veronica Martin MD, LUDIN Board Certified, [place] Board [employer] and Rehabilitation (ABPMR) Board Certified, [place] Board of Electrodiagnostic Medicine (ABEM) CODIN [id number] x2 MTDD
== END 2023-05-11 14:34 | disposition home or self-care (01) ==
LOC: HO.NEURO 14:33
PROVIDERS: PCP Internal Medicine; Visit Provider Internal Medicine
DX: M54.16 Radiculopathy, lumbar region (principal)
CPT/HCPCS: 95886; 95909

== ENCOUNTER → 2023-05-11 14:35 | Outpatient (BNV) | payer MEDICARE, SELFPAY | PROVIDERS: PCP Internal Medicine; Visit Provider Physical Medicine & Rehabilitation | DX: M54.16 Radiculopathy, lumbar region (principal) | CPT/HCPCS: 95886; 95909 ==

== ENCOUNTER 2023-05-20 11:36 | Outpatient (AMB) | payer MEDICARE, SELFPAY ==
--- NOTE | 2023-05-20 11:36 | A.OFFVIS_ITS ---
Intake Intake Visit Reasons: 2 month follow up Allergies Shellfish Allergy (Intermediate, Uncoded 03/21/23 11:14) ITCHING/CHEST PRESSURE HPI 2 month follow up HPI Details 67-year-old male who presents today via tele-health visit for a two- month follow up. He was unable to start physical therapy because he fractured his leg in the beginning of February 2023. He was not cleared by his orthopedics to join physical therapy. He was so far unable to participate in formal physical therapy because he had a boot on his leg. He continues to have significant symptoms. He will start physical therapy next week as his boot is off. He had an EMG study that showed evidence of chronic subacute/chronic right L4-5 radiculopathy. He has not had imaging yet. 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 Left peroneal nerve showed prolonged distal latency, small amplitude and slightly slow conduction velocity across fibular neck. Bilateral sural nerves were absent. All other nerves tested were within normal. Concentric needle EMG was performed in selected muscles of the bilateral lower extremity and lumbar paraspinals. Study revealed signs of electric abnormalities as shown in the table below. IMPRESSION: 1. This is an abnormal study. 2. There is electrodiagnostic findings suggestive for subacute/chronic right L4- 5 radiculopathy. 3. 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 Assessment & Plan Assessment & Plan (1) Lumbar radiculopathy: Code(s): M54.16 - Radiculopathy, lumbar region Plan I ordered an MRI scan of the lumbar spine in setting of right lumbar radicular symptoms and evidence of right L4-5 radiculopathy on EMG testing. The patient is returning to formal physical therapy now that his leg boot is off. He has previously participated in formal PT as well. Scribed for Dr. Echeverria by Piotr Richmond, medical van driver, on 05/20/2023. I, Dr. Echeverria, have personally reviewed and agree with the information entered by the scribe. Orders: Orders MR lumbar spine wo con 05/20/23 M54.16 - Radiculopathy, lumbar region Telehealth Telehealth Location of provider rendering services: practice address Location of patient: address on file Patient Identification confirmed using: Name, : Yes Telehealth method: voice only Patient verbally consented to treatment: Yes Patient verbally consented to billing insurance company: Yes Patient informed of any privacy concerns related to visit: Yes Minutes spent on Phone/Video with Pt.: 3 Coding Level of Care Code Tele Est Pt Level 3 (42246) Diagnoses Lumbar radiculopathy M54.16
== END 2023-05-20 11:37 | disposition home or self-care (01) ==
LOC: HO.PMC 11:36
PROVIDERS: PCP Internal Medicine; Visit Provider Internal Medicine
DX: M54.16 Radiculopathy, lumbar region (principal)
CPT/HCPCS: 99024

== ENCOUNTER → 2023-05-20 11:36 | Outpatient (BNVA) | payer MEDICARE, SELFPAY | PROVIDERS: PCP Internal Medicine; Visit Provider Internal Medicine ==

== ENCOUNTER 2024-04-03 11:23 | Outpatient (REF) | payer MEDICARE, SELFPAY ==
--- OUTSIDE RECORDS SUMMARY | 2024-04-03 13:00 | XMS_ITS ---
Author Organization Kareem Ramos DO, FACP Address [address], [place] [id number] Care Team Providers Care Software Applications Developer Name Role Phone Kareem Ramos Primary Care Provider [phone] REASON FOR VISIT RE:RE:Appointment/referral Encounters Encounter Location Date Provider Diagnosis Kareem Ramos DO, FACP [address], [place] [id number] 08/12/2023 Kareem Ramos PLAN OF TREATMENT No Information
--- OUTSIDE RECORDS SUMMARY | 2024-04-03 13:01 | XMS_ITS ---
Author Organization Kareem Ramos DO [facility] Address [address], [place] [id number] Care Team Providers Care Blower Room Attendant Name Role Phone Kareem Ramos Primary Care Provider REASON FOR VISIT RE:Appointment/referral Encounters Encounter Location Date Provider Diagnosis Kareem Ramos DO, FACP [address], [place] [phone] 08/05/2023 Kareem Ramos PLAN OF TREATMENT No Information
--- OUTSIDE RECORDS SUMMARY | 2024-04-03 13:01 | XMS_ITS | Patient Health Record ---
Author Organization [facility] Address [address] [place] [phone] Care Team Providers Care Commissary Representative Name Role Phone Richard (RETIRED) Kareem SARKAR Primary Care Provid er Unavailable Demetrius Nicole Jr Unavailable [phone] ALLERGIES Allergen (clinical drug ingredient) Drug/Non Drug Allergy documented on EMR Reaction Allergy Type Onset Date Status Shellfish (FN) shell fish (uncoded) Unknown Allergy Active REASON FOR REFERRAL No Information MEDICATIONS Medication SIG (Take, Route, Frequency, Duration) Notes Start Date End Date Status Aspirin 81 81 MG 1 tablet Orally Once a day for 30 day(s) 12/13/2019 Active Timolol Maleate 0.5 % Ophthalmic for 37 Active diazePAM 5 MG (Schedule IV Drug) O ral for 30 Active Montelukast Sodium 10 MG Oral for 30 Active Lisinopril 20 MG Oral for 90 A ctive metFORMIN HCl 1000 MG Oral for 30 Active Atorvastatin Calcium 40 MG Oral for 30 Active MiraLax (colon prep) 8.3 ounce ((238) grams mixed with Gatorade or Crystal Light orally begin at 5:00 p.m. the day before the procedure for 1 day 12/13/2019 Active IMMUNIZATIONS Vaccine Route Administration Date Status Comme nts Influenza Unknown 11/21/2018 Administered SOCIAL HISTORY Tobacco Use: Social History Observation Description Date Details (start date - stop date) Never Smoker NA - NA Sex Assigned At : Social History Observation Description Sex Assigned At Unknown Tobacco Use/Smoking Question Answer Notes Patient is a nonsmoker Alcohol Screen Question Answer Notes Did you have a drink contain ing alcohol in the past year? Yes How often did you have a dri nk containing alcohol in the past year? Monthly or less (1 point) How many drinks did you have on a typical day when you were drinking in the past year? 1 or 2 drinks (0 point) Points 1 Interpretation Negative PROBLEMS Problem Type ICD Code Onset Dates Problem Status W/U Status Risk SNOMED Code Notes Problem Personal history of colonic polyps (Z86.010) Active confirmed 698701583 Problem Colon cancer screening (Z12.11) Active confirmed 544484096 Problem Aspirin long-term use (Z79.82) Active confirmed [id number] PLAN OF TREATMENT Future Test Test Name Order Date COLONOSCOPY 12/13/2019 Insurance Providers Payer Name Payer Address Payer Phone Subscriber Number Group Number Insured Name Patient Relationship to Insured Coverage Start Date Coverage End Date [facility] [address] [place] [address] [id number] HUI THOMAS Self - patient is the insured MEDICAL (GENERAL) HISTORY Medical History History ICD Code type II diabetes hypertension allergies history of seizure disorder glaucoma Surgical History Surgery Date(Month/Year) nasel polyps x4 skin cancer chest
--- OUTSIDE RECORDS SUMMARY | 2024-04-03 13:01 | XMS_ITS ---
Author Organization Kareem Ramos DO [facility] Address [address] [place], [place] [id number] Care Team Providers Care Framing Carpenter Name Role Phone Kareem Ramos Primary Care Provider [phone] REASON FOR VISIT RE:Appointment/referral Encounters Encounter Location Date Provider Diagnosis Kareem Ramos DO, FACP [address] [place], [place] [id number] 05/25/2023 Kareem Ramos PLAN OF TREATMENT No Information
[2024-04-03 13:27] LABS: Hematocrit 36.7 % (42.0-52.0); Hemoglobin 12.5 g/dl (14.0-18.0); Mean Corpuscular HGB Conc 34.1 g/dl (31.0-36.0); Mean Corpuscular Hemoglobin 31.5 pg (27.0-33.0); Mean Corpuscular Volume 92.4 fL (80.0-98.0); Mean Platelet Volume 10.3 fL (9.4-12.4); Platelet Count 203 X10*3/uL (160-400); Red Blood Count 3.97 X10*6/uL (4.60-5.80); Red Cell Distribution Width 12.8 % (11.0-16.0); White Blood Count 5.2 X10*3/uL (4.8-10.8)
[2024-04-03 13:32] LABS: Appearance Urine Clear; Color Urine Yellow; Glucose Urine UA Negative (Negative); Leukocyte Esterase Urine Negative (Negative); Nitrite Urine Negative (Negative); PH 5.5 (5.0-9.0); UMIC TRIGGER UA YES; Urine Blood Negative (Negative); Urine Ketones Negative (Negative); Urine Protein 300 (3+) mg/dL (Neg-Trace)
[2024-04-03 13:35] LABS: Bacteria Urine None Seen (None Seen); RBC Urine 0-2 /HPF (0-2); Squamous Epithelial Cell Urine 0-2 /HPF (0-2); WBC Urine 0-5 /HPF (0-5)
[2024-04-03 13:37] LABS: Estimated Average Glucose 134 mg/dL; Hemoglobin A1C 147.8962 umol/L; Hemoglobin A1c % 6.3 % (<6.0); Total Hemoglobin (HGBA1C) 3266.6823 umol/L
[2024-04-03 14:07] LABS: Creatinine Urine 118.53 mg/dL
[2024-04-03 14:21] LABS: Microalbum/Creatinine Ratio Ur 881.6 ug/mg cr (<30)
[2024-04-03 15:36] LABS: Alanine Aminotransferase 36 U/L (0-40); Albumin Level 3.6 g/dL (3.5-5.0); Anion Gap 14 (12-20); Aspartate Amino Transferase 32 U/L (5-37); Bilirubin Direct 0.1 mg/dL (0.0-0.5); Bilirubin Total 0.3 mg/dL (0.0-1.0); Blood Urea Nitrogen 23 mg/dL (9-16); Calcium 8.9 mg/dL (8.4-10.2); Carbon Dioxide 25 mmol/L (22-29); Chloride 107 mmol/L (96-108); Cholesterol 166 mg/dL (<200); Estimated Glomerular Filt Rate > 60; Glucose Random 144 mg/dL (60-115); HDL Cholesterol 63 mg/dL (>40); LDL Cholesterol Calculated 82 mg/dL (<100); Potassium 4.5 mmol/L (3.3-5.1); Sodium 141 mmol/L (135-145); Total Protein 7.1 g/dL (6.5-8.0); Triglycerides 105 mg/dL (<150)
[2024-04-03 15:57] LABS: Thyroid Stimulating Hormone 1.93 uIU/mL (0.32-4.0)
[2024-04-03 17:27] LABS: Alkaline Phosphatase 49 U/L (39-117)
== END 2024-04-03 11:24 | disposition home or self-care (01) ==
LOC: HO.HMGCLDS 11:23
PROVIDERS: PCP Internal Medicine; Visit Provider Internal Medicine
DX: E11.9 Type 2 diabetes mellitus without complications (principal)
CPT/HCPCS: 36415; 80048; 80061; 80076; 81001; 82043; 82570; 83036; 84443; 85027

== ENCOUNTER 2024-04-04 12:57 | Outpatient (AMB) | payer MEDICARE, SELFPAY ==
--- NOTE | 2024-04-04 13:01 | A.OFFPC_ITS ---
Vital Signs 04/04/24 13:16 Height 5 ft 8.5 in Weight 224 lb BMI 33.6 BP 150/62 H Blood Pressure Location Rt brachial Pulse 81 Pulse Source Pulse Oximeter Temp 97.1 F Pulse Oximetry (%) 81 L Intake Visit Reasons: 2 month follow up Intake Note: no issues Allergies Shellfish Allergy (Intermediate, Uncoded 04/04/24 13:44) ITCHING/CHEST PRESSURE Medication List - Last Reconciled 04/04/24 by Isac Hamilton MD amlodipine 5 mg PO DAILY aspirin 325 mg PO DAILY atorvastatin 40 mg PO DAILY 90 days diazepam 5 mg PO DAILY PRN lisinopril 40 mg PO DAILY metformin 1,000 mg PO BIDWMEAL montelukast 10 mg PO DAILY 90 days multivitamin 1 tab PO DAILY phenytoin sodium extended 400 mg (4 x 100 mg) PO DAILY tadalafil (Cialis) 20 mg PO DAILY PRN timolol maleate 0.5% drps [facility] Medical History (Updated 04/04/24 @ 13:45 by Isac Hamilton MD) Psoriasis Glaucoma Back pain Squamous cell carcinoma of skin of chest Diabetes Seizure disorder Lumbar disc disease Shortness of breath on exertion Hypercholesteremia HTN (hypertension) Surgical History History of colonoscopy H/O nasal polypectomy Social History Patient Tobacco Use Status: Never used Tobacco Advance Directives Date on File: 03/25/14 Current occupational status: retired 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 Physical exam (Primary Care) Vital Signs: Last Vital Signs Temp 97.1 F 04/04/24 13:16 Pulse 81 04/04/24 13:16 BP 150/62 H 04/04/24 13:16 Pulse Ox 81 L 04/04/24 13:16 BMI result Body Mass Index 33.6 Tobacco/Smoking Status: Tobacco use Status Patient Tobacco Use Status Never used Tobacco 04/04/24 13:02 Coding Level of Care Code New Pt Level 4 (88583) Complex EM visit Add On G2211 Diagnoses Diabetes E11.9 Lumbar radiculopathy M54.16 Seizure disorder G40.909 Assessment & Plan Assessment & Plan (1) Diabetes: Comment: NIDDM Code(s): E11.9 - Type 2 diabetes mellitus without complications Category: Medical Plan: A1c is in range. Continue medications at same dosage. (2) Lumbar radiculopathy: Code(s): M54.16 - Radiculopathy, lumbar region Category: Medical Plan: A referral to pain management is being made.. (3) Seizure disorder: Comment: last seizure 22 years ago Code(s): G40.909 - Epilepsy, unspecified, not intractable, without status epilepticus Category: Medical Plan: Patient is reluctant to taper the Dilantin. He would like to continue taking the medication. Dilantin level is slightly subtherapeutic. Plan History of Present Illness The patient is a 68-year-old male presenting with chronic low back pain and a history of seizure disorder. The back pain is long-standing in nature, with a history of two ruptured discs sustained as a work injury. The patient has been previously managed by a pain management clinic and attempted physical therapy, which he noted as ineffective. Insurance initially denied an MRI, demanding eight weeks of physical therapy, but subsequently approved it upon appeal. Despite approval, logistical delays resulted in a lapse, causing denial again. The patient reports that he has unresolved chronic pain needing further evaluation, including the MRI. The seizure disorder originated from an injury sustained in 1975 during service. The patient has been seizure-free for approximately 25 years, maintained on Dilantin, with no notable side effects. He expresses reluctance to discontinue Dilantin due to potential driving restrictions associated with cessation. 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 His hypertension is measured at 150/65, unusual for him, typically measuring 135-140/90s. Blood glucose levels are under control with an A1c of 6.3. Social History - Moderate physical activity related to home renovations. 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 - History of cannabis use, resumed to aid in management of back pain symptoms. - Engages in indirect weight management by increasing daily activity. - Reports improved sleep patterns, getting 7 to 8 hours per night. Review of Systems - Neurological: Reports no seizure activity. - Musculoskeletal: Reports chronic back pain. - No further systems were discussed. Physical Exam General: Appearance normal, both eyes and all related structures Nutritional Appearance: Well nourished Orientation/consciousness: Patient oriented x3 Limitations: Chronic back issues due to past injury Head: Normal to inspection Neck: Normal visual inspection Chest: Normal palpation of entire chest wall Respiratory: Normal respiratory effort Neurology: Patient oriented x3, history of seizures, last seizure approximately 25 years ago, currently on Dilantin 100 mg, 4 times daily Results - Blood Work: A1c at 6.3. Plan - Refill prescriptions for Dilantin 100 mg to manage seizure disorder with counseling on continued monitoring. - Refill diazepam as a sleep aide and muscle relaxant for discomfort. - Referral to pain management clinic for reevaluation of back pain and assistance in obtaining MRI authorization. - Monitor blood pressure at home, report if readings exceed 150 systolic for medication adjustment. - Continue management for hypertension with current regimen of lisinopril and amlodipine. Patient was informed and verbally consented to the use of an ambient scribe for clinic note documentation during this visit. Discussion Notes I discussed the challenges faced in securing approval for the MRI and instructed to follow up with the pain management clinic for comprehensive evaluation. The necessity of continuing Dilantin was discussed with understanding due to the potential implications for driving privileges. The successful weight management strategy through increased physical activity was acknowledged and encouraged. Regarding hypertension, adequate home monitoring was advised, and adjustments will be considered based on future readings. Refills for Dilantin and diazepam were confirmed as per patient's request. Instructions for ongoing care were clarified, and anticipatory guidance was provided. Patient Instructions Medications: New diazepam 5 mg PO DAILY PRN 30 tabs 0RF anxiety Refilled phenytoin sodium extended 400 mg (4 x 100 mg) PO DAILY 360 caps 1RF
[2024-04-04 13:16] VITALS: BP 150/62; PULSE 81; TEMP 36.2; O2SAT 81; BMI 33.6
--- OUTSIDE RECORDS SUMMARY | 2024-04-04 14:16 | XMS_ITS ---
Author Organization Kareem Ramos DO, FACP Address [address] [place], [place] [phone] Care Team Providers Care Feed Elevator Worker Name Role Phone Kareem Ramos Primary Care Provider REASON FOR VISIT RE:RE:Appointment/referral Encounters Encounter Location Date Provider Diagnosis Kareem Ramos DO, FACP [address] [place], [place] [phone] 08/12/2023 Kareem Ramos PLAN OF TREATMENT No Information
--- OUTSIDE RECORDS SUMMARY | 2024-04-04 14:17 | XMS_ITS | Patient Health Record ---
Author Organization [facility] Address [address] [place] [address] Care Team Providers Care Window Trimmer Name Role Phone Richard (RETIRED) Kareem SARKAR Primary Care Provid er Unavailable Demetrius Nicole Jr Unavailable [phone] ALLERGIES Allergen (clinical drug ingredient) Drug/Non [...] history of colonic polyps (Z86.010) Active confirmed 426241575 Problem Colon cancer screening (Z12.11) Active confirmed 448563256 Problem Aspirin long-term use (Z79.82) Active confirmed [id number] PLAN OF TREATMENT Future Test Test Name Order Date COLONOSCOPY 12/13/2019 Insurance Providers Payer Name Payer Address Payer Phone Subscriber Number Group Number Insured Name Patient Relationship to Insured Coverage Start Date Coverage End Date [facility] [address] [place] [address] [id number] HUI THOMAS Self - patient is the insured MEDICAL (GENERAL) HISTORY Medical History History ICD Code type II diabetes hypertension allergies history of seizure disorder glaucoma Surgical History Surgery Date(Month/Year) nasel polyps x4 skin cancer chest
--- OUTSIDE RECORDS SUMMARY | 2024-04-04 14:17 | XMS_ITS ---
Author Organization Kareem Ramos DO [facility] Address [address] [place], [place] [phone] Care Team Providers Care Jtac Name Role Phone Kareem Ramos Primary Care Provider REASON FOR VISIT RE:Appointment/referral Encounters Encounter Location Date Provider Diagnosis Kareem Ramos DO, FACP [address] [place], [place] [phone] 05/25/2023 Kareem Ramos PLAN OF TREATMENT No Information
--- OUTSIDE RECORDS SUMMARY | 2024-04-04 14:17 | XMS_ITS ---
Author Organization Kareem Ramos DO [facility] Address [address] [place], [place] [phone] Care Team Providers Care Resident Care Spec Name Role Phone Kareem Ramos Primary Care Provider REASON FOR VISIT RE:Appointment/referral Encounters Encounter Location Date Provider Diagnosis Kareem Ramos DO, FACP [address] [place], [place] [phone] 08/05/2023 Kareem Ramos PLAN OF TREATMENT No Information
== END 2024-04-04 13:38 | disposition home or self-care (01) ==
LOC: HO.HMCSH 12:57
PROVIDERS: PCP Internal Medicine; Visit Provider Internal Medicine
DX: E11.9 Type 2 diabetes mellitus without complications (principal); M54.16 Radiculopathy, lumbar region; G40.909 Epilepsy, unspecified, not intractable, without status epilepticus

== ENCOUNTER → 2024-04-04 12:57 | Outpatient (BNVA) | payer MEDICARE, SELFPAY | PROVIDERS: PCP Internal Medicine; Visit Provider Internal Medicine | DX: E11.9 Type 2 diabetes mellitus without complications (principal); M54.16 Radiculopathy, lumbar region; G40.909 Epilepsy, unspecified, not intractable, without status epilepticus | CPT/HCPCS: 99202 ==

== ENCOUNTER 2024-04-20 11:14 | Outpatient (AMB) | payer MEDICARE, SELFPAY ==
--- NOTE | 2024-04-20 11:20 | A.OFFVIS_ITS ---
Vital Signs 04/20/24 11:21 Height 5 ft 8.5 in Weight 225 lb BMI 33.7 BP 196/102 H Blood Pressure Location Rt brachial Position Sitting Respiration 16 Pulse 78 Pulse Source Pulse Oximeter Pulse Oximetry (%) 98 Oxygen Delivery Method Room Air Intake Visit Reasons: FU on lumbar radiculopathy Intake Note: Pt's BP grossly elevated, he forgot to take his lisinopril and amlodipine, and had a large cup of coffee Establishment Guide Required: No Allergies Shellfish Allergy (Intermediate, Uncoded 04/20/24 11:25) ITCHING/CHEST PRESSURE Medication List - Last Reconciled 04/20/24 by Allie Baig, INTERNATIONAL MARKETING COORDINATOR amlodipine 5 mg PO DAILY aspirin 325 mg PO DAILY atorvastatin 40 mg PO DAILY 90 days diazepam 5 mg PO DAILY PRN lisinopril 40 mg PO DAILY metformin 1,000 mg PO BIDWMEAL montelukast 10 mg PO DAILY 90 days multivitamin 1 tab PO DAILY phenytoin sodium extended 400 mg (4 x 100 mg) PO DAILY tadalafil (Cialis) 20 mg PO DAILY PRN timolol maleate 0.5% drps HPI HPI FU on lumbar radiculopathy: Details: History of Present Illness The patient is a 68-year-old male presenting with follow-up evaluation and MRI scheduling for chronic lower back pain. An MRI was initially planned a year ago but delayed due to insurance requirements for physical therapy, which proved ineffective. Due to personal challenges, the MRI wasn't completed within the authorized window. The patient experiences variable lower back pain, side-effect sciatica with accompanying numbness in his right leg and left thigh, impacting mobility, particularly with stairs, and leading to incidents of falling. An MRI from 2016 is inaccessible for comparative evaluation, emphasizing the necessity for updated imaging to further assess and plan management strategies. Pain Description - Onset: Chronic duration with variable exacerbations. - Quality and Character: Varies in intensity, sometimes manageable, worsens upon certain physical activities. - Primary Location: Lower back. - Areas of Radiation: Numbness and sciatica primarily affecting the right leg and additional numbness in the left thigh. - Aggravating Factors: Rising from a sitting position and navigating stairs. - Relieving Factors: Not specifically mentioned. - Interference with Activities: Difficulty navigating stairs due to reduced sensation and balance issues. Physical Exam - Musculoskeletal- Physical examination specifically noting pain reproduction when rising from a sitting position with associated incidents of falling due to numbness in the legs. Results - MRI Reference: MRI performed in 2016, with images currently inaccessible. Pain Management - Affect: Mood implications due to loss of a family member and personal challenges. - Analgesia: Previous ineffectual physical therapy; no current medication mentioned. - Adverse Effects: None mentioned from therapy or medication. - Activities of Daily Living: Difficulty with stairs and balance due to sensory deficits. - Aberrant Drug-Related Behaviors: Not reported. 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 I will resubmit the MRI request, since it was previously approved but could not be completed due to extenuating personal circumstances. The patient will be instructed to arrange a follow-up appointment after the MRI to form a comprehensive treatment approach based on up-to-date imaging findings. No additional physical therapy is suggested due to ineffectiveness. Patient was informed and verbally consented to the use of an ambient scribe for clinic note documentation during this visit. Discussion Notes I discussed the need for updated imaging with the patient, emphasizing the importance of a new MRI to appraise the current status of his chronic lower back pain and related neurological symptoms. We reviewed the previous authorization process, considering the acute personal and logistic hurdles that prevented previous completion. The patient understands the necessity for new imaging and agreed to proceed with scheduling as soon as possible, following up directly if approved. I advised coordinating an office visit post-MRI for reviewing findings and tailoring a precise management plan to address ongoing symptoms and functional challenges, ensuring preparedness for symptom clarification and therapeutic development. Patient Instructions - Schedule the MRI as soon as it is approved. - Contact my office to set up an appointment a few days after the MRI is performed. - Track any changes in symptoms, particularly pain severity or increased numbness. - Call if there are further substantial delays or problems with the MRI adele eduling. - Report any new symptoms, such as bowel or bladder changes, immediately. Orders: Orders MR lumbar spine wo con 04/20/24 M54.16 - Radiculopathy, lumbar region Coding Level of Care Code Est Pt Level 3 (15686) Diagnoses Lumbar radiculopathy M54.16
[2024-04-20 11:21] VITALS: BP 196/102; PULSE 78; RESP 16; O2SAT 98; BMI 33.7
--- OUTSIDE RECORDS SUMMARY | 2024-04-20 13:13 | XMS_ITS ---
Author Organization Kareem Ramos DO, FACP Address [address] [place], [place] [phone] Care Team Providers Care Dispatch Associate Name Role Phone Kareem Ramos Primary Care Provider REASON FOR VISIT RE:RE:Appointment/referral Encounters Encounter Location Date Provider Diagnosis Kareem Ramos DO, FACP [address] [place], [place] [phone] 08/12/2023 Kareem Ramos PLAN OF TREATMENT No Information
--- OUTSIDE RECORDS SUMMARY | 2024-04-20 13:14 | XMS_ITS | Patient Health Record ---
Author Organization [facility] Address [address] [place] [address] Care Team Providers Care Cone Winder Name Role Phone Richard (RETIRED) Kareem SARKAR Primary Care Provid er Unavailable Demetrius Nicole Jr Unavailable [phone] ALLERGIES Allergen (clinical drug ingredient) Drug/Non [...] W/U Status Risk SNOMED Code Notes Problem Colon cancer screening (Z12.11) Active confirmed 796210825 Problem Personal history of colonic polyps (Z86.010) Active confirmed 740636679 Problem Aspirin long-term use (Z79.82) Active confirmed [id number] PLAN OF TREATMENT Future Test Test Name Order Date COLONOSCOPY 12/13/2019 Insurance Providers Payer Name Payer Address Payer Phone Subscriber Number Group Number Insured Name Patient Relationship to Insured Coverage Start Date Coverage End Date [facility] [address] [place] [address] [id number] HUI THOMAS Self - patient is the insured MEDICAL (GENERAL) HISTORY Medical History History ICD Code type II diabetes hypertension allergies history of seizure disorder glaucoma Surgical History Surgery Date(Month/Year) nasel polyps x4 skin cancer chest
--- OUTSIDE RECORDS SUMMARY | 2024-04-20 13:14 | XMS_ITS ---
Author Organization Kareem Ramos DO [facility] Address [address] [place], [place] [phone] Care Team Providers Care Manager Career Name Role Phone Kareem Ramos Primary Care Provider REASON FOR VISIT RE:Appointment/referral Encounters Encounter Location Date Provider Diagnosis Kareem Ramos DO, FACP [address] [place], [place] [phone] 08/05/2023 Kareem Ramos PLAN OF TREATMENT No Information
--- OUTSIDE RECORDS SUMMARY | 2024-04-20 13:15 | XMS_ITS ---
Author Organization Kareem Ramos DO [facility] Address [address] [place], [place] [phone] Care Team Providers Care Production Staff Worker Name Role Phone Kareem Ramos Primary Care Provider REASON FOR VISIT RE:Appointment/referral Encounters Encounter Location Date Provider Diagnosis Kareem Ramos DO, FACP [address] [place], [place] [phone] 05/25/2023 Kareem Ramos PLAN OF TREATMENT No Information
== END 2024-04-20 11:49 | disposition home or self-care (01) ==
PROVIDERS: PCP Internal Medicine; Visit Provider Internal Medicine
DX: M54.16 Radiculopathy, lumbar region (principal)
CPT/HCPCS: 99213

== ENCOUNTER → 2024-04-20 11:14 | Outpatient (BNVA) | payer MEDICARE, SELFPAY | PROVIDERS: PCP Internal Medicine; Visit Provider Internal Medicine | DX: M54.16 Radiculopathy, lumbar region (principal) | CPT/HCPCS: 99212 ==

== ENCOUNTER 2024-05-05 11:24 | Outpatient (REF) | payer MEDICARE, SELFPAY ==
--- NOTE | ~2024-05-05 | MR_ITS ---
CLINICAL HISTORY: M54.16 - Radiculopathy, lumbar region MR lumbar spine without gadolinium Comparison: None Findings: There is straightening of the normal lumbar lordosis. No fracture, malalignment or suspicious lesion. Multilevel disc space narrowing and disc desiccation most pronounced at L4-5 and L1-2. The conus terminates normally at L1. Cauda equina are unremarkable. Paravertebral soft tissues appear within normal limits. Individual levels: L1-L2: Mild bilateral neural foraminal narrowing. No central canal stenosis. L2-L3: Small posterior disc protrusion. Moderate bilateral neural foraminal narrowing. No central canal stenosis. L3-L4: Moderate right neural foraminal narrowing. No central canal stenosis. L4-L5: Moderately severe central canal stenosis and severe bilateral neural foraminal narrowing related to a posterior disc protrusion, facet hypertrophy and ligamentum flavum thickening. L5-S1: No significant central canal stenosis. Mild bilateral neural foraminal narrowing, [id number]. Impression: Degenerative changes most pronounced at L4-L5 as detailed. This document has been electronically signed by: Mendoza Tapia MD on 05/05/2024 12:28:18
== END 2024-05-05 11:25 | disposition home or self-care (01) ==
LOC: HO.MRI 11:24
PROVIDERS: PCP Internal Medicine; Visit Provider Internal Medicine
DX: M54.16 Radiculopathy, lumbar region (principal)
CPT/HCPCS: 72148

== ENCOUNTER → 2024-05-05 11:31 | Outpatient (BNV) | payer MEDICARE, SELFPAY | PROVIDERS: PCP Internal Medicine; Visit Provider Radiology Vascular & Interventional Radiology | DX: M54.16 Radiculopathy, lumbar region (principal) | CPT/HCPCS: 72148 ==

== ENCOUNTER 2024-07-11 13:47 | Outpatient (AMB) | payer MEDICARE, SELFPAY ==
--- NOTE | 2024-07-11 13:48 | A.OFFPC_ITS ---
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: No Accompanied by: Self / Same As Patient Allergies Shellfish Allergy (Intermediate, Uncoded 07/11/24 14:10) ITCHING/CHEST PRESSURE Medication List - Last Reconciled 07/11/24 by Mary lElen Srivastava PA-C amlodipine 5 mg PO DAILY aspirin 325 mg PO DAILY atorvastatin 40 mg PO DAILY 90 days betamethasone dipropionate 0.05% appl topical diazepam 5 mg PO DAILY PRN lisinopril 40 mg PO DAILY metformin 1,000 mg PO BIDWMEAL montelukast 10 mg PO DAILY 90 days multivitamin 1 tab PO DAILY phenytoin sodium extended 400 mg (4 x 100 mg) PO DAILY tadalafil (Cialis) 20 mg PO DAILY PRN timolol maleate 0.5% drps Tobacco use date assessed: 07/11/24 Fall risk assessment: 1 Fall in past year (slipped on ice ) Last assessed Fall Risk: 07/11/24 Dental Screening Dental Screen Date: 07/11/24 Did you have a dental visit in the last 12 months?: Yes Did you have a dental problem in the last 6 months where you did not have access to dental care?: No Was dental information given to patient?: Patient has dentist HPI elevated BP; edema, both leg HPI Details The patient is a 68-year-old male presenting to establish a new primary care provider due to his primary care provider Dr. Ramos retired in February 2024 and patient is concerned with elevated blood pressure and leg swelling. The patient has a history of hypertension, managed with lisinopril for 5-6 years and amlodipine for one year. Notably, the leg swelling was a new discovery, associated with amlodipine's side effect profile. He reports breathing difficulty during physical exertion starting [id number] infection in 2019. Initial proteinuria was attributed to dehydration due to lower fluid consumption. A Factor V Leiden mutation is present, contributing to prothrombotic conditions. Additionally, he has prior incidents of skin cancer, routinely monitored by dermatological visits. Social History - Nutritional habits include minimal renan t, preferring vegetables like peppers and paprika. - Consumes sparkling natural water; repo rted low water intake. - Monitored skin health due to previous skin cancer history; regular dermatological check-ups. [facility] Medical History (Updated 07/11/24 @ 15:03 by Mary Ellen Srivastava PA-C) Eczema Factor 5 Leiden mutation, heterozygous Proteinuria Heart murmur Pedal edema Class 1 obesity with body mass index (BMI) of 34.0 to 34.9 in adult NAION (non-arteritic anterior ischemic optic neuropathy) Tubular adenoma Labyrinthitis Chronic sinusitis Nasal polyposis Establishing care with new doctor, encounter for Psoriasis Glaucoma Back pain Squamous cell carcinoma of skin of chest Diabetes Seizure disorder Lumbar disc disease Shortness of breath on exertion Hypercholesteremia HTN (hypertension) Surgical History History of resection of squamous cell skin carcinoma of left sikhism History of vasectomy H/O sinus surgery History of colonoscopy (~12/28/19) H/O nasal polypectomy Family History Father Stroke Mother Heart problem Social History Housing: House Alcohol intake: current Alcohol intake frequency: a few times a week Patient Tobacco Use Status: Former Tobacco user Tobacco use type: Cigarette Advance Directives Date on File: 03/25/14 service: No Current occupational status: retired Cognitive needs: No Hearing needs: No Vision needs: Yes (reading glasses) Questionnaire PHQ-9 Over the last 2 weeks, how often have you been bothered by any of the following problems? 1. Little interest or pleasure in doing things: not at all 2. Feeling down, depressed, or hopeless: not at all 3. Trouble falling or staying asleep, or sleeping too much: not at all 4. Feeling tired or having little energy: not at all 5. Poor appetite or overeating: not at all 6. Feeling bad about yourself - or that you are a failure or have let yourself or your family down: not at all 7. Trouble concentrating on things, such as reading the newspaper or watching television: not at all 8. Moving or speaking so slowly that other people could have noticed. Or the opposite - being so fidgety or restless that you have been moving around a lot more than usual: not at all 9. Thoughts that you would be better off or of hurting yourself in some way: not at all Total score: 0 Depression Screening Interpretation: Negative Depression Screening Done: Yes 38287 - PHQ-9 Billing: Yes Source: Developed by Drs. Kareem Cruz, Sadie Hogan, Eder Mittal and colleagues, with an educational leah from [employer]. Thrive Questionnaire Date Thrive assessed: 07/11/24 I am a: Patient What is your living situation today?: I have a steady place to live Within the past 12 months, did the food you bought not last and you didn't have the money to get more?: Never true Within the past 12 months, did you worry whether your food would run out before you got money to buy more?: Never true Do you have trouble paying for medicines?: No Do you have trouble getting transportation to medical appointments?: No Do you have trouble paying your heating and electricity bill?: No Do you have trouble taking care of your child, family member or friend?: No Do you have trouble with day-to-day activities such as bathing, preparing meals, shopping, managing finances, etc.?: No Are you currently unemployed and looking for a job?: No Are you interested in more education?: No Please select the resources that you would like help with: None THRIVE Score: 0 AUDIT C Alcohol Use Questionnaire (AUDIT-C) 1. How often do you have a drink containing alcohol?: 2-3 times a week 2. How many drinks containing alcohol do you have on a typical day when you are drinking?: 1 or 2 3. How often do you have six or more drinks on one occasion?: Never Total Score: 3 Score Reviewed/Action Taken: No ERASTO-7 AMB Questionnaire ERASTO-7 Date ERASTO - 7 assessed: 07/11/24 Feeling nervous, anxious, or on edge: 0 = Not at all Not being able to stop or control worryin = Not at all Worrying too much about different things: 0 = Not at all Trouble relaxin = Not at all Being so restless that it is hard to sit still: 0 = Not at all Becoming easily annoyed or irritable: 0 = Not at all Feeling afraid as if something awful might happen: 0 = Not at all Total ERASTO-7 score (0-4 normal; 5-9 mild; 10-14 moderate; 15-21 severe): 0 Source: Developed by Drs. Kareem Cruz, Sadie Hogan, Eder Mittal and colleagues, with an educational leah from [employer]. ERASTO-7 Assessment Billing ERASTO-7 Assessment Tool: ERASTO-7 Assessment 14550 Review of Systems Const Details: - Cardiovascular: Reports elevated blood pressure. - Respiratory: Reports exertional shortness of breath following COVID-19. - Genitourinary: Denies urinary frequency. Reports recently discovered proteinuria. - Musculoskeletal: Denies pain associated with lower extremity swelling. - Dermatological: Denies current significant skin issues; history of skin cancer and eczema. Physical exam (Primary Care) Vital Signs: Last Vital Signs Temp 97.9 F 07/11/24 13:49 Pulse 82 07/11/24 13:49 Resp 16 07/11/24 13:49 BP 152/70 H 07/11/24 13:49 Pulse Ox 96 07/11/24 13:49 Oxygen Delivery Method Room Air 07/11/24 13:49 Care Plan Goal for BP management: <140/90 BMI result Body Mass Index 34.0 BMI Assessment/Plan discussion: High BMI High, discussed plan: lifestyle, weight reduction, dietary, physical activity and alcohol moderation Tobacco/Smoking Status: Tobacco use Status Tobacco use date assessed 07/11/24 07/11/24 14:00 Patient Tobacco Use Status Former Tobacco user 07/11/24 14:02 Tobacco use type Cigarette 07/11/24 14:00 PHQ-9: PHQ-9 Score PHQ-9: Total score 0 07/11/24 14:00 Depression Screening Interpretation: Negative Thrive Assessment: Date of Thrive Assessment Date Thrive assessed 07/11/24 07/11/24 14:00 Const Other: Appearance: Alert. Oriented X3. No acute distress. Head: Normal external exam. Normocephalic. Atraumatic. Eyes: Pupils are equal, round, and reactive to light. Extraocular movements intact. Conjunctiva and sclera normal. Eyelids normal. Ears: External auditory canal normal. Tympanic membranes normal. Throat: Pharynx normal. Uvula midline. Moist mucous membranes. Neck: Normal inspection. Neck supple. Full range of motion. No adenopathy. Thyroid Normal. No meningeal signs. No neck mass noted. Cardiovascular: Normal heart rate and rhythm. Heart sound normal. Murmur noted. Pulses normal throughout. Respiratory: No respiratory distress. Painless inspiration. Breath sounds normal. No wheezes/rales/rhonchi noted. Chest nontender. No accessory muscle usage noted or decreased air movement noted. Abdomen: Soft and nontender. Bowel sounds normal in all 4 quadrants. No distention noted. No organomegaly noted. No visible injury noted. Back: No costovertebral angle tenderness. Full range of motion noted. Skin: Skin warm and dry. Normal skin color. Normal skin turgor. No rashes/lesions/lacerations noted. Extremities: +3 or +4 pitting edema to the lower extremity. Extremities exhibit normal range of motion. Extremities nontender. Neuro: Oriented X 3. No motor deficit. No sensory deficit. Reflexes normal. Results Reviewed Results Reviewed: - Labs: Previous normal sodium levels. - Tests: Previously identified proteinuria. Coding Level of Care Code Est Pt Level 4 (25398) Complex EM visit Add On G2211 Diagnoses Establishing care with new doctor, encounter for Z76.89 HTN (hypertension) I10 Hypercholesteremia E78.00 Seizure disorder G40.909 Diabetes E11.9 Pedal edema R60.0 Proteinuria R80.9 Factor 5 Leiden mutation, heterozygous D68.51 Eczema L30.9 Additional Codes PHQ-9 - 16002 - PHQ-9 Billing: Yes ([id number]) ERASTO-7 Assessment Billing - ERASTO-7 Assessment Tool: ERASTO-7 Assessment 45796 ([id number]) Assessment & Plan Assessment & Plan (1) Establishing care with new doctor, encounter for: Code(s): Z76.89 - Persons encountering health services in other specified circumstances Category: Medical Plan: Patient was a patient of Dr. Ramos establishing care with us today. (2) HTN (hypertension): Code(s): I10 - Essential (primary) hypertension Category: Medical Plan: Plan: Transition off amlodipine. Start hydrochlorothiazide at 12.5 mg daily to manage blood pressure and edema. Perform regular home monitoring of blood pressure and lab tests, monitoring for hyponatremia. Follow up in one month. (3) Hypercholesteremia: Code(s): E78.00 - Pure hypercholesterolemia, unspecified Category: Medical Plan: Patient to continue atorvastatin 40 mg daily. Condition is chronic and stable continue to monitor. (4) Seizure disorder: Comment: last seizure 22 years ago Code(s): G40.909 - Epilepsy, unspecified, not intractable, without status epilepticus Category: Medical Plan: Condition is chronic and stable will continue to monitor. (5) Diabetes: Comment: NIDDM Code(s): E11.9 - Type 2 diabetes mellitus without complications Category: Medical Plan: A1c level go less than 7.0. Patient to continue metformin 1000 mg p.o. b.i.d.. Last A1c level on 04/03/2024 6.3 at goal. Condition is chronic and stable will continue current regimen. (6) Pedal edema: Code(s): R60.0 - Localized edema Category: Medical Plan: Plan: Discontinue amlodipine, likely cause of edema. Initiate hydrochlorothiazide, monitor response via chest X-ray and blood tests. Assess in follow-up visit. (7) Proteinuria: Code(s): R80.9 - Proteinuria, unspecified Category: Medical Plan: Plan: Reassess with further labs for renal evaluation, correlating with diuretic use and fluid status. Condition is chronic and stable continue to monitor. (8) Factor 5 Leiden mutation, heterozygous: Code(s): D68.51 - Activated protein C resistance Category: Medical Plan: Plan: Maintain daily aspirin use. Alert to signs of thrombosis and monitor periodically for clot risk. Condition is chronic and stable continue to monitor. (9) Eczema: Code(s): L30.9 - Dermatitis, unspecified Category: Medical Plan: Plan: Prescribe betamethasone ointment for eczema. Advise dermatology follow- ups. Condition is chronic and stable continue to monitor. Plan Plan Patient was informed and verbally consented to the use of an ambient scribe for clinic note documentation during this visit. 1. Essential Hypertension Plan: Transition off amlodipine. Start hydrochlorothiazide at 12.5 mg daily to manage blood pressure and edema. Perform regular home monitoring of blood pressure and lab tests, monitoring for hyponatremia. Follow up in one month. 2. Lower Extremity Edema Plan: Discontinue amlodipine, likely cause of edema. Initiate hydrochlorothiazide, monitor response via chest X-ray and blood tests. Assess in follow-up visit. 3. Proteinuria Plan: Reassess with further labs for renal evaluation, correlating with diuretic use and fluid status. 4. Factor V Leiden Mutation Plan: Maintain daily aspirin use. Alert to signs of thrombosis and monitor periodically for clot risk. 5. Skin Health Concerns History Of Skin Cancer And Eczema Plan: Prescribe betamethasone ointment for eczema. Advise dermatology follow- ups. During the visit, we reviewed the patient's history of hypertension and confirmed the link between amlodipine and the onset of lower extremity edema. To address these, I recommended discontinuing amlodipine and initiating hydrochlorothiazide. I discussed its side effects, including potential hypo natremia, advising increased salt intake if dizziness or other signs appear. I provided instructions for hypertension home management with a specific protocol for monitoring and follow-up. Regarding proteinuria, I explained the need for re-evaluation by further lab assessments. While addressing Factor V Leiden, I maintained aspirin therapy for clotting risk reduction. I discussed the patient's dermatological management for eczema and emphasized proper medication use. Follow-up in one month or sooner, per lab results, was proposed. Orders: Orders Hemoglobin A1c Today Z00.00 - Encounter for general adult medical examination without abnormal findings Comprehensive Met. Panel Today Z00.00 - Encounter for general adult medical examination without abnormal findings Vitamin D 25-OH Total Today Z00.00 - Encounter for general adult medical examination without abnormal findings B Type Natriuretic Peptide Today R60.0 - Localized edema XR chest 2V Today R60.0 - Localized edema Testosterone, Free/Total Today Z00.00 - Encounter for general adult medical examination without abnormal findings DHEA Sulfate Today Z00.00 - Encounter for general adult medical examination without abnormal findings PSA,Total (Free>4and<10) Today Z00.00 - Encounter for general adult medical examination without abnormal findings Vitamin B12 and Folate Today Z00.00 - Encounter for general adult medical examination without abnormal findings Magnesium Today Z00.00 - Encounter for general adult medical examination without abnormal findings C Reactive Protein Today Z00.00 - Encounter for general adult medical examination without abnormal findings CA echo transthoracic complete Today R01.1 - Cardiac murmur, unspecified Testosterone, Total Today Z00.00 - Encounter for general adult medical examination without abnormal findings Dihydrotestosterone Today Z00.00 - Encounter for general adult medical examination without abnormal findings Referrals Urology Referral R80.9 - Proteinuria, unspecified Gastroenterology Referral Z12.11 - Encounter for screening for malignant ne oplasm of colon Medications: New hydrochlorothiazide 12.5 mg PO DAILY 30 tabs 0RF hydrocortisone 2.5% 1 appl topical BID-TID PRN 454 grams 1RF itching Discontinued amlodipine Discontinued Reason: Doctor's Order 5 mg PO DAILY 90 tabs 4RF Patient Instructions: - Stop taking amlodipine; start hydrochlorothiazide 12.5 mg each day in the morning. - Monitor blood pressure every other day using your home cuff. - Schedule follow-up blood work and chest X-ray in two weeks. - Consume a little salt in your diet; be aware of signs of low sodium, like dizziness. - Use betamethasone ointment for eczema as needed. - Continue daily aspirin as prescribed. - Stay hydrated to prevent dehydration-related issues. - Report any new symptoms such as leg pain or breathing difficulties promptly. - Plan for a follow-up visit in one month unless contacted sooner for blood results.
[2024-07-11 13:49] VITALS: BP 152/70; PULSE 82; RESP 16; TEMP 36.6; O2SAT 96; BMI 34.0
== END 2024-07-11 14:35 | disposition home or self-care (01) ==
LOC: HO.HMCSH 13:47
PROVIDERS: PCP Internal Medicine; Visit Provider Physician Assistant Medical
DX: I10 Essential (primary) hypertension (principal); G40.909 Epilepsy, unspecified, not intractable, without status epilepticus; E11.620 Type 2 diabetes mellitus with diabetic dermatitis; Z76.89 Persons encountering health services in other specified circumstances; E78.00 Pure hypercholesterolemia, unspecified; R60.0 Localized edema; R80.9 Proteinuria, unspecified; D68.51 Activated protein C resistance; L30.9 Dermatitis, unspecified

== ENCOUNTER → 2024-07-11 13:47 | Outpatient (BNVA) | payer MEDICARE, SELFPAY | PROVIDERS: PCP Internal Medicine; Visit Provider Physician Assistant Medical | DX: I10 Essential (primary) hypertension (principal); E78.00 Pure hypercholesterolemia, unspecified; G40.909 Epilepsy, unspecified, not intractable, without status epilepticus; E11.9 Type 2 diabetes mellitus without complications; R60.9 Edema, unspecified; R80.9 Proteinuria, unspecified; D68.51 Activated protein C resistance; L30.9 Dermatitis, unspecified; Z76.89 Persons encountering health services in other specified circumstances; Z79.899 Other long term (current) drug therapy | CPT/HCPCS: 96127; 99212 ==

== ENCOUNTER 2024-08-04 13:47 | Outpatient (REF) | payer MEDICARE, SELFPAY ==
--- NOTE | ~2024-08-04 | XR_ITS ---
CLINICAL HISTORY: cp Chest X-ray, 2 Views COMPARISON: None FINDINGS: No consolidation. No pleural effusion. No pneumothorax. No cardiomegaly. No acute fracture. IMPRESSION: No acute findings. This document has been electronically signed by: Zain Gonzales MD on 08/04/2024 21:51:26
--- NOTE | ~2024-08-04 | XR_ITS ---
CLINICAL HISTORY: L02.612 - Cutaneous abscess of left foot --- Additional Notes or Special Instructio ns: plantar surface, need to r o foreign body in the area of abcess 3 view left foot Comparison: CR/SR - XR FOOT LT 2V - 03/01/23 14:43 EST Findings: No fractures or dislocations. Degenerative changes of the 1st metatarsophalangeal joint. No ankle effusion. In the plantar soft tissues there is a focal linear radiodense structure measuring 2 mm in length in the forefoot, best seen on the lateral view. No other radiopaque foreign body seen. Extensive arterial vascular calcifications. IMPRESSION: 2 mm linear radiodense foreign body overlying the plantar soft tissues of the forefoot. This document has been electronically signed by: Konrad Austin MD on 08/04/2024 15:17:07
[2024-08-04 15:35] LABS: Estimated Average Glucose 128 mg/dL; Hemoglobin A1c % 6.1 % (<6.0)
[2024-08-04 16:00] LABS: B Type Natriuretic Peptide 42 pg/mL (<100)
[2024-08-04 16:01] LABS: Alanine Aminotransferase 34 U/L (0-40); Alkaline Phosphatase 56 U/L (39-117); Anion Gap 16 (12-20); Aspartate Amino Transferase 26 U/L (5-37); Bilirubin Total 0.3 mg/dL (0.0-1.0); Blood Urea Nitrogen 29 mg/dL (9-16); C Reactive Protein 6.06 mg/dL (< or = 0.50); Calcium 9.4 mg/dL (8.4-10.2); Carbon Dioxide 26 mmol/L (22-29); Chloride 104 mmol/L (96-108); Estimated Glomerular Filt Rate 52; Glucose Random 164 mg/dL (60-115); Magnesium 2.1 mg/dL (1.6-2.6); Potassium 4.5 mmol/L (3.3-5.1); Sodium 141 mmol/L (135-145)
[2024-08-04 16:16] LABS: Vitamin D 25-OH Total 44.5 ng/mL (>30)
[2024-08-04 16:29] LABS: Folate 12.5 ng/mL (> or = 4.0); Vitamin B12 477 pg/mL (200-900)
[2024-08-07 02:29] LABS: DHEA Sulfate 89 mcg/dL (20-217)
[2024-08-11 02:58] LABS: Dihydrotestosterone 11 ng/dL (12-65)
[2024-08-11 18:28] LABS: Testosterone, Free 12.2 pg/mL (35.0-155.0); Testosterone, Total 121 ng/dL (250-1100)
== END 2024-08-04 13:48 | disposition home or self-care (01) ==
LOC: HO.HMGCX 13:47
PROVIDERS: Physician Assistant Medical; PCP Internal Medicine; Visit Provider Nurse Practitioner Family
DX: L02.612 Cutaneous abscess of left foot (principal); M79.5 Residual foreign body in soft tissue; Z23 Encounter for immunization; Z00.00 Encounter for general adult medical examination without abnormal findings; R60.0 Localized edema; Z12.5 Encounter for screening for malignant neoplasm of prostate; Z13.1 Encounter for screening for diabetes mellitus
CPT/HCPCS: 36415; 71046; 73630; 80053; 82306; 82607; 82627; 82642; 82746; 83036; 83735; 83880; 84153; 84402; 84403; 86140; 90471; 90715; 99212

== ENCOUNTER 2024-08-04 13:47 | Outpatient (AMB) | payer MEDICARE, SELFPAY ==
[2024-08-04 13:52] VITALS: BP 150/90; PULSE 90; TEMP 36.6; O2SAT 96
--- NOTE | 2024-08-04 13:52 | AM.OFFWIN_ITS ---
Intake Vital Signs 3 08/04/24 13:52 Height 5 ft 8.5 in BMI Reason not done Patient refused/unable BP 150/90 H Blood Pressure Location Lt brachial Position Sitting Pulse 90 Pulse Source Pulse Oximeter Temp 97.8 F Temp Source Oral Pulse Oximetry (%) 96 Oxygen Delivery Method Room Air Intake Visit Reasons: EP discolored lump lt foot Patient Tobacco Use Status: Former Tobacco user Allergies Shellfish Allergy (Intermediate, Uncoded 08/04/24 14:00) ITCHING/CHEST PRESSURE Medication List - Last Reconciled 08/04/24 by Sabiha Cortez, CRIMINAL LAWYER- aspirin 325 mg PO DAILY atorvastatin 40 mg PO DAILY 90 days betamethasone dipropionate 0.05% appl topical diazepam 5 mg PO DAILY PRN hydrochlorothiazide 12.5 mg PO DAILY hydrocortisone 2.5% 1 appl topical BID-TID PRN lisinopril 40 mg PO DAILY metformin 1,000 mg PO BIDWMEAL montelukast 10 mg PO DAILY 90 days multivitamin 1 tab PO DAILY phenytoin sodium extended 400 mg (4 x 100 mg) PO DAILY tadalafil (Cialis) 20 mg PO DAILY PRN timolol maleate 0.5% drps Do you need a note to return to daycare/school/sports/work: No HPI HPI Comments 2 History of Present Illness0 Details [facility] DARRYL ESCOBAR History of Present Illness - The patient is a 68-year-old male pres enting with a painful lump on the left foot. - Lump appeared early in the week; initi ally tender. - Increased weekend walking activity; im proper footwear noted. - Pain worsened and swelling noted by night, affecting ambulation. - Home treatments tried, including soaki ng and ointments; minimal effect. - Lump perceived as internal; increased size with toe swelling. - Concerns about potential infection due to recent progression. - Denies knowledge of foot trauma or pun cture. - No similar previous episodes reported. - Not UTD on Tdap - Doing home robert Review of Systems - Musculoskeletal: Reports lump, pain, a nd swelling in the left foot. - Integumentary: Reports noticeable grow th in lump size; presence of callus-like feature. - General: Denies fever, chills, or syst emic symptoms. - Other systems: Denies symptoms. Physical Exam L FOOT NEUROVASC INTACT; AREA BELOW IS TENDER TO TOUCH, NO DRAINAGE, + FLUCTUANCE Diagnostic results SEE BELOW Discussion Notes During the consultation, I explained to the patient that his symptoms are consistent with a possible soft tissue infection in the foot. The importance of updating his tetanus immunization was discussed, given the signs of infection and potential risk factors he described. I recommended a tetanus vaccination during this visit. We discussed the need for an x-ray to rule out the presence of a foreign body, especially given the rapid growth of the lump and his history of walking in unfavourable conditions. We addressed the convenience of utilizing our patient portal for accessing his test results and treatment plan. I highlighted the potential need for antibiotics and that adequate treatment will be based on imaging findings. I confirmed arrangements for tetanus vaccination and x-ray during this visit and discussed sending antibiotics to his preferred pharmacy, [facility] in [place], due to timing constraints of his regular pharmacy. Assessment and Plan 1. Lump and associated pain on the left foot - Suspected soft tissue infection. - Tetanus vaccination given. - Ordered foot x-ray. - Plan for antibiotics based on findings . - Portal for updates. Xray confirmed presence of foreign body. Pt called w/ results at 1620. Cephalexin BID x 7 days, refer to [facility] for removal. Edu on reasons to seek additional care. Consent Patient was informed and verbally consented to the use of an ambient scribe for clinic note documentation during this visit. Total time spent caring for the patient today was 40 minutes. This includes time spent before the visit reviewing the chart, time spent during the visit, and time spent after the visit on documentation, reviewing laboratory results, diagnostic imaging, medications, performing a medically necessary evaluation, counseling on diagnoses, care coordination, ordering appropriate tests, ordering appropriate medications, review of tests performed by other providers, reporting test results with the patient, communication with other healthcare providers. [facility] Medical History (Updated 08/04/24 @ 16:22 by Sabiha Cortez, YENIFER-ROBBIN) Back pain Chronic sinusitis Class 1 obesity with body mass index (BMI) of 34.0 to 34.9 in adult Diabetes Eczema Establishing care with new doctor, encounter for Factor 5 Leiden mutation, heterozygous Glaucoma Heart murmur HTN (hypertension) Hypercholesteremia Labyrinthitis Lumbar disc disease NAION (non-arteritic anterior ischemic optic neuropathy) Nasal polyposis Pedal edema Proteinuria Psoriasis Seizure disorder Shortness of breath on exertion Squamous cell carcinoma of skin of chest Tubular adenoma Surgical History H/O nasal polypectomy H/O sinus surgery History of colonoscopy (~12/28/19) History of resection of squamous cell skin carcinoma of left latter day History of vasectomy Family History Father Stroke Mother Heart problem Social History Housing: House Alcohol intake: current Alcohol intake frequency: a few times a week Patient Tobacco Use Status: Former Tobacco user Tobacco use type: Cigarette Advance Directives Date on File: 03/25/14 service: No Current occupational status: retired Cognitive needs: No Hearing needs: No Vision needs: Yes (reading glasses) Physical Exam Vital Signs: Last Vital Signs Temp 97.8 F 08/04/24 13:52 Pulse 90 08/04/24 13:52 BP 150/90 H 08/04/24 13:52 Pulse Ox 96 08/04/24 13:52 Oxygen Delivery Method Room Air 08/04/24 13:52 Immunizations Boostrix Tdap 2.5 Lf unit-8 mcg-5 Lf/0.5 mL intramuscular syringe Performing Provider: GABY Yan Performing Location: [facility] Administered by: Chauncey Sood CMA on 08/04/24 14:17 2 Dose Route Admin Location Dispensed Lot Number Expiration Date [facility] Genetics Teacher 0.5 mL IM Left Deltoid 0.5 mL [id number] 10/17/26 [id number] Hubub 2 VIS Given Date VIS Provided VIS Publication Date 08/04/24 Single Vaccine 20 Eligibility Eligibility Date Funding Source Not [facility] Eligible 08/04/24 Private Results Reviewed Results Reviewed: [facility] [address] [place] [address] XRay Report Signed Patient: Lars Botello MR#: [id number] : 1955 Acct:[id number] Age/Sex: 68 / M ADM Date: 08/04/24 Loc: [facility] Attending Dr: Sabiha VALENZUELA Ordering Physician: Sabiha Cortez Date of Service: 08/04/24 Procedure(s): XR foot LT min 3V Accession Number(s): [id number] cc: Sabiha Cortez; Isac Hamilton MD~ CLINICAL HISTORY: L02.612 - Cutaneous abscess of left foot --- Additional Notes or Special Instructions: plantar surface, need to r o foreign body in the area of abcess 3 view left foot Comparison: CR/SR - XR FOOT LT 2V - 03/01/23 14:43 EST Findings: No fractures or dislocations. Degenerative changes of the 1st metatarsophalangeal joint. No ankle effusion. In the plantar soft tissues there is a focal linear radiodense structure measuring 2 mm in length in the forefoot, best seen on the lateral view. No other radiopaque foreign body seen. Extensive arterial vascular calcifications. IMPRESSION: 2 mm linear radiodense foreign body overlying the plantar soft tissues of the forefoot. This document has been electronically signed by: Konrad Austin MD on 08/04/2024 15:17:07 Dictated By: Konrad Austin MD Signed By: <Electronically signed by Konrad Austin MD in OV> 08/04/24 1518 DD/ 151 TD/TT: 08/04/241516 [employer]: Assessment & Plan Assessment & Plan (1) Other foreign body or object entering through skin, initial encounter: Code(s): W45.8XXA - Other foreign body or object entering through skin, initial encounter (2) Foot abscess, left: Code(s): L02.612 - Cutaneous abscess of left foot (3) Need for Tdap vaccination: Code(s): Z23 - Encounter for immunization Plan . Orders: Orders 2 TDaP Immunization Today Z23 - Encounter for immunization XR foot LT min 3V Today L02.612 - Cutaneous abscess of left foot Referrals 2 General Surgery Referral L02.612 - Cutaneous abscess of left foot Medications: New 2 cephalexin 500 mg PO Q12H 7 days 14 caps 0RF Coding Level of Care Code Est Pt Level 5 (53523) Diagnoses Other foreign body or object entering through skin, initial encounter W45.8XXA Foot abscess, left L02.612 Need for Tdap vaccination Z23
== END 2024-08-04 14:19 | disposition home or self-care (01) ==
PROVIDERS: PCP Physician Assistant Medical; Visit Provider Nurse Practitioner Family
DX: L02.612 Cutaneous abscess of left foot (principal); W45.8XXA Other foreign body or object entering through skin, initial encounter; Z23 Encounter for immunization

== ENCOUNTER → 2024-08-04 14:22 | Outpatient (BNV) | payer MEDICARE, SELFPAY | PROVIDERS: PCP Internal Medicine; Visit Provider Radiology Diagnostic Radiology | DX: R07.9 Chest pain, unspecified (principal); S90.852A Superficial foreign body, left foot, initial encounter | CPT/HCPCS: 71046; 73630 ==

== ENCOUNTER 2024-08-08 13:38 | Outpatient (AMB) | payer MEDICARE, SELFPAY ==
[2024-08-08 13:42] VITALS: BP 165/77; PULSE 78; RESP 20; TEMP 36.2; O2SAT 96; BMI 34.0
--- NOTE | 2024-08-08 13:42 | MHC.PC.OV ---
Vital Signs 08/08/24 13:42 Height 5 ft 8.5 in Weight 227 lb BMI 34.0 BP 165/77 H Blood Pressure Location Rt brachial Position Sitting Respiration 20 Pulse 78 Pulse Source Pulse Oximeter Temp 97.2 F Temp Source Temporal Artery Scan Pulse Oximetry (%) 96 Oxygen Delivery Method Room Air Intake Visit Reasons: 1 Month Follow up Culinary Intern Required: No Accompanied by: Self / Same As Patient Allergies Shellfish Allergy (Intermediate, Uncoded 08/08/24 16:14) ITCHING/CHEST PRESSURE Medication List - Last Reconciled 08/08/24 by Mary Ellen Srivastava PA-C aspirin 325 mg PO DAILY atorvastatin 40 mg PO DAILY 90 days betamethasone dipropionate 0.05% appl topical cephalexin 500 mg PO Q6H 3 days cephalexin 500 mg PO Q12H 7 days diazepam 5 mg PO DAILY PRN gentamicin 0.1% 1 appl topical TID hydrochlorothiazide 12.5 mg PO DAILY hydrocortisone 2.5% 1 appl topical BID-TID PRN lisinopril 40 mg PO DAILY metformin 1,000 mg PO BIDWMEAL montelukast 10 mg PO DAILY 90 days multivitamin 1 tab PO DAILY phenytoin sodium extended 400 mg (4 x 100 mg) PO DAILY tadalafil (Cialis) 20 mg PO DAILY PRN timolol maleate 0.5% drps Tobacco use date assessed: 07/11/24 Fall risk assessment: 1 Fall in past year Last assessed Fall Risk: 07/11/24 Dental Screening Dental Screen Date: 07/11/24 Did you have a dental visit in the last 12 months?: Yes Did you have a dental problem in the last 6 months where you did not have access to dental care?: No Was dental information given to patient?: Patient has dentist HPI 1 Month Follow up HPI Details The patient is a 68-year-old male presenting for follow-up on hypertension and evaluation of foot pain. The patient reports a history of hypertension, with recent home blood pressure readings as high as 195/105 mmHg, averaging around 168/103 mmHg. He is currently on lisinopril and hydrochlorothiazide, with a recent increase in the latter to 25 mg daily due to persistent elevated readings. Approximately a week and a half ago, the patient began experiencing tenderness in the front of his foot, which progressed to swelling and severe pain by the end of the week. An x-ray revealed a 2 mm piece of metal in the medial forefoot of the left foot, and the patient has been referred for surgical consultation. The patient also reports a foot abscess that drained pus and blood, with a foul odor noted. He is currently on cephalexin and has been advised to use gentamicin ointment for topical treatment. The patient has a history of prediabetes, with an A1c of 6.1%. He is on metformin, which has been reduced to 500 mg daily due to improved glycemic control. 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 - Housing: Recently purchased a new house undergoing renovation. - Exercise: Engages in physical activity related to house renovation. - Weight management: Has lost weight from 248 pounds to 215 pounds over nine months. [facility] Medical History (Updated 08/08/24 @ 16:19 by Mary Ellen Srivastava PA-C) Prediabetes Foreign body in left foot Wound of left foot Eczema Factor 5 Leiden mutation, heterozygous Proteinuria Heart murmur Pedal edema Class 1 obesity with body mass index (BMI) of 34.0 to 34.9 in adult NAION (non-arteritic anterior ischemic optic neuropathy) Tubular adenoma Labyrinthitis Chronic sinusitis Nasal polyposis Establishing care with new doctor, encounter for Psoriasis Glaucoma Back pain Squamous cell carcinoma of skin of chest Diabetes Seizure disorder Lumbar disc disease Shortness of breath on exertion Hypercholesteremia HTN (hypertension) Surgical History History of resection of squamous cell skin carcinoma of left sikh History of vasectomy H/O sinus surgery History of colonoscopy (~12/28/19) H/O nasal polypectomy Family History Father Stroke Mother Heart problem Social History Housing: House Alcohol intake: current Alcohol intake frequency: a few times a week Patient Tobacco Use Status: Former Tobacco user Tobacco use type: Cigarette Advance Directives Date on File: 03/25/14 service: No Current occupational status: retired Cognitive needs: No Hearing needs: No Vision needs: Yes (reading glasses) Questionnaire PHQ-9 Over the last 2 weeks, how often have you been bothered by any of the following problems? 1. Little interest or pleasure in doing things: not at all 2. Feeling down, depressed, or hopeless: not at all 3. Trouble falling or staying asleep, or sleeping too much: not at all 4. Feeling tired or having little energy: not at all 5. Poor appetite or overeating: not at all 6. Feeling bad about yourself - or that you are a failure or have let yourself or your family down: not at all 7. Trouble concentrating on things, such as reading the newspaper or watching television: not at all 8. Moving or speaking so slowly that other people could have noticed. Or the opposite - being so fidgety or restless that you have been moving around a lot more than usual: not at all 9. Thoughts that you would be better off or of hurting yourself in some way: not at all Total score: 0 Depression Screening Interpretation: Negative Depression Screening Done: Yes 02686 - PHQ-9 Billing: Yes Source: Developed by Drs. Kareem Cruz, Sadie Hogan, Eder Mittal and colleagues, with an educational leah from [employer]. Thrive Questionnaire Date Thrive assessed: 07/11/24 I am a: Patient What is your living situation today?: I have a steady place to live Within the past 12 months, did the food you bought not last and you didn't have the money to get more?: Never true Within the past 12 months, did you worry whether your food would run out before you got money to buy more?: Never true Do you have trouble paying for medicines?: No Do you have trouble getting transportation to medical appointments?: No Do you have trouble paying your heating and electricity bill?: No Do you have trouble taking care of your child, family member or friend?: No Do you have trouble with day-to-day activities such as bathing, preparing meals, shopping, managing finances, etc.?: No Are you currently unemployed and looking for a job?: No Are you interested in more education?: No Please select the resources that you would like help with: None Currently or been in a relationship where the following occur: No concerns reported THRIVE Score: 0 AUDIT C Alcohol Use Questionnaire (AUDIT-C) 1. How often do you have a drink containing alcohol?: 2-3 times a week 2. How many drinks containing alcohol do you have on a typical day when you are drinking?: 1 or 2 3. How often do you have six or more drinks on one occasion?: Never Total Score: 3 Score Reviewed/Action Taken: No ERASTO-7 AMB Questionnaire ERASTO-7 Date ERASTO - 7 assessed: 07/11/24 Feeling nervous, anxious, or on edge: 0 = Not at all Not being able to stop or control worryin = Not at all Worrying too much about different things: 0 = Not at all Trouble relaxin = Not at all Being so restless that it is hard to sit still: 0 = Not at all Becoming easily annoyed or irritable: 0 = Not at all Feeling afraid as if something awful might happen: 0 = Not at all Total ERASTO-7 score (0-4 normal; 5-9 mild; 10-14 moderate; 15-21 severe): 0 Source: Developed by Drs. Kareem Cruz, Sadie Hogan, Eder Mittal and colleagues, with an educational leah from [employer]. ERASTO-7 Assessment Billing ERASTO-7 Assessment Tool: ERASTO-7 Assessment 31325 Review of Systems Const Details: - Cardiovascular: Reports elevated blood pressure readings at home. Denies chest pain or palpitations. - Musculoskeletal: Reports severe pain and swelling in the foot. - Endocrine: Reports stable blood glucose levels. Denies symptoms of hyperglycemia or hypoglycemia. Physical exam (Primary Care) Vital Signs: Last Vital Signs Temp 97.2 F 08/08/24 13:42 Pulse 78 08/08/24 13:42 Resp 20 08/08/24 13:42 BP 162/96 H 08/08/24 13:42 Pulse Ox 96 08/08/24 13:42 Oxygen Delivery Method Room Air 08/08/24 13:42 Care Plan Goal for BP management: <140/90 patient to continue lisinopril 40 mg daily will increase hydrochlorothiazide from 12.5 mg to 25 mg daily at this time BMI result Body Mass Index 34.0 BMI Assessment/Plan discussion: High BMI High, discussed plan: lifestyle, weight reduction, dietary, physical activity and alcohol moderation Tobacco/Smoking Status: Tobacco use Status Tobacco use date assessed 07/11/24 08/08/24 13:46 Patient Tobacco Use Status Former Tobacco user 08/08/24 13:46 Tobacco use type Cigarette 08/08/24 13:46 PHQ-9: PHQ-9 Score PHQ-9: Total score 0 08/08/24 13:49 Depression Screening Interpretation: Negative Thrive Assessment: Date of Thrive Assessment Date Thrive assessed 07/11/24 08/08/24 13:46 Currently or been in a relationship where the following occur: No concerns reported Const Other: Appearance: Alert. Oriented X3. No acute distress. Head: Normal external exam. Normocephalic. Atraumatic. Eyes: Pupils are equal, round, and reactive to light. Extraocular movements intact. Conjunctiva and sclera normal. Eyelids normal. Ears: External auditory canal normal. Tympanic membranes normal. Throat: Pharynx normal. Uvula midline. Moist mucous membranes. Neck: Normal inspection. Neck supple. Full range of motion. No adenopathy. Thyroid Normal. No meningeal signs. No neck mass noted. Cardiovascular: Normal heart rate and rhythm. Heart sound normal. No murmurs noted. Pulses normal throughout. Respiratory: No respiratory distress. Painless inspiration. Breath sounds normal. No wheezes/rales/rhonchi noted. Chest nontender. No accessory muscle usage noted or decreased air movement noted. Abdomen: Soft and nontender. Bowel sounds normal in all 4 quadrants. No distention noted. No organomegaly noted. No visible injury noted. Back: No costovertebral angle tenderness. Full range of motion noted. Skin: Skin warm and dry. Normal skin color. Normal skin turgor. No rashes/lesions/lacerations noted. Extremities: Right foot with tenderness and swelling, presence of a blister that has popped with pus and blood drainage. No lower extremity edema. Extremities exhibit normal range of motion. Extremities nontender. Neuro: Oriented X 3. No motor deficit. No sensory deficit. Reflexes normal. Results Reviewed Results Reviewed: - Imaging: X-ray of the foot showed a 2 mm piece of metal. - Labs: A1c at 6.1%, indicating prediabetes. Coding Level of Care Code Est Pt Level 4 (54207) Complex EM visit Add On G2211 Diagnoses HTN (hypertension) I10 Foreign body in left foot S90.852A Prediabetes R73.03 Foot abscess, left L02.612 Additional Codes ERASTO-7 Assessment Billing - ERASTO-7 Assessment Tool: ERASTO-7 Assessment 76207 ([id number]) PHQ-9 - 16931 - PHQ-9 Billing: Yes ([id number]) Assessment & Plan Assessment & Plan (1) HTN (hypertension): Code(s): I10 - Essential (primary) hypertension Category: Medical Plan: The patient will continue on lisinopril and increase hydrochlorothiazide to 25 mg daily to manage elevated blood pressure readings. Follow-up in three months or sooner if blood pressure remains uncontrolled. (2) Foreign body in left foot: Code(s): S90.852A - Superficial foreign body, left foot, initial encounter Category: Medical Plan: The patient has been referred for surgical consultation to evaluate and possibly remove the foreign body from the foot. (3) Prediabetes: Code(s): R73.03 - Prediabetes Category: Medical Plan: The patient will reduce metformin to 500 mg daily due to improved glycemic control and continue monitoring blood glucose levels. Condition is chronic and stable will continue to monitor. (4) Foot abscess, left: Code(s): L02.612 - Cutaneous abscess of left foot Category: Medical Plan: The patient is advised to apply gentamicin ointment and continue oral cephalexin for the foot abscess/wound. Referral to a wound clinic/surgical consult is recommended for further management. Will continue to monitor Plan Plan Patient was informed and verbally consented to the use of an ambient scribe for clinic note documentation during this visit. 1. Essential Hypertension The patient will continue on lisinopril and increase hydrochlorothiazide to 25 mg daily to manage elevated blood pressure readings. Follow-up in three months or sooner if blood pressure remains uncontrolled. 2. Foreign Body In Foot The patient has been referred for surgical consultation to evaluate and possibly remove the foreign body from the foot. 3. Prediabetes The patient will reduce metformin to 500 mg daily due to improved glycemic control and continue monitoring blood glucose levels. 4. Foot Abscess The patient is advised to apply gentamicin ointment and continue oral cephalexin for the foot abscess. Referral to a wound clinic is recommended for further management. I discussed with the patient the management of his hypertension, including the increase in hydrochlorothiazide dosage and the importance of monitoring blood pressure at home. We reviewed the findings of the foot x-ray and the presence of a foreign body, leading to a referral for surgical consultation. I advised on the use of gentamicin ointment for the foot abscess and the continuation of cephalexin. We also discussed the reduction of metformin dosage due to improved glycemic control and the importance of maintaining lifestyle modifications to manage prediabetes. Medications: New gentamicin 0.1% 1 appl topical TID 30 grams 1RF S91.302A - Unspecified open wound, left foot, initial encounter cephalexin 500 mg PO Q6H 12 caps 0RF 3 days metformin 500 mg PO DAILY Changed From hydrochlorothiazide 12.5 mg PO DAILY 30 tabs 0RF To hydrochlorothiazide 25 mg PO DAILY 90 tabs 1RF 90 days Discontinued metformin Discontinued Reason: Doctor's Order 1,000 mg PO BIDWMEAL 180 tabs 3RF Patient Instructions: - Continue taking lisinopril and increase hydrochlorothiazide to 25 mg daily. - Monitor blood pressure at home and report any readings above 150/90 mmHg. - Apply gentamicin ointment to the foot abscess and continue oral cephalexin. - Attend the surgical consultation for the foreign body in the foot. - Reduce metformin to 500 mg daily and maintain lifestyle modifications.
== END 2024-08-08 14:49 | disposition home or self-care (01) ==
LOC: HO.HMCSH 13:38
PROVIDERS: PCP Physician Assistant Medical; Visit Provider Physician Assistant Medical
DX: I10 Essential (primary) hypertension (principal); S90.852A Superficial foreign body, left foot, initial encounter; R73.03 Prediabetes; L02.612 Cutaneous abscess of left foot

== ENCOUNTER → 2024-08-08 13:38 | Outpatient (BNVA) | payer MEDICARE, SELFPAY | PROVIDERS: PCP Physician Assistant Medical; Visit Provider Physician Assistant Medical | DX: I10 Essential (primary) hypertension (principal); R73.03 Prediabetes; L02.612 Cutaneous abscess of left foot; S90.852A Superficial foreign body, left foot, initial encounter; X58.XXXA Exposure to other specified factors, initial encounter; Y93.9 Activity, unspecified; Y92.9 Unspecified place or not applicable; Y99.9 Unspecified external cause status | CPT/HCPCS: 96127; 99212 ==

== ENCOUNTER 2024-08-10 11:32 | Outpatient (AMB) | payer MEDICARE, SELFPAY ==
--- NOTE | 2024-08-10 11:31 | A.OFFVIS_ITS ---
Vital Signs 08/10/24 11:47 Height 5 ft 8.5 in Weight 226 lb BMI 33.9 BP 197/94 H Blood Pressure Location Lt brachial Position Sitting Pulse 111 H Intake Visit Reasons: abscess/foreign body (L) foot Intake Note: Patient is seen in office for evaluation of an abscess /foreign body of the foot. Pt c/o: began as a callus a week ago, then got painful to walk on, puffy, discoloration, went to urgent care and had xray elvira, was told has metal in the foot, PCP I&D and had discharge xray:08/04/24 Spa Assistant Manager Required: No Accompanied by: Self / Same As Patient Allergies Shellfish Allergy (Intermediate, Uncoded 08/10/24 11:33) ITCHING/CHEST PRESSURE Medication List - Last Reconciled 08/13/24 by Dion Friend MD aspirin 325 mg PO DAILY atorvastatin 40 mg PO DAILY 90 days betamethasone dipropionate 0.05% appl topical cephalexin 500 mg PO Q6H 3 days cephalexin 500 mg PO Q12H 7 days diazepam 5 mg PO DAILY PRN gentamicin 0.1% 1 appl topical TID hydrochlorothiazide 25 mg PO DAILY 90 days hydrocortisone 2.5% 1 appl topical BID-TID PRN lisinopril 40 mg PO DAILY metformin 500 mg PO DAILY montelukast 10 mg PO DAILY 90 days multivitamin 1 tab PO DAILY phenytoin sodium extended 400 mg (4 x 100 mg) PO DAILY tadalafil (Cialis) 20 mg PO DAILY PRN timolol maleate 0.5% drps HPI Comments Details: 68-year-old male patient presenting for evaluation of a possible foreign body of the left foot. He reports that the wound began approximately 7-10 days prior to examination with a callus located at the ball of the foot around the 3rd or 4th toe. This began to swell and become puffy. The wound became more painful and he subsequently was evaluated at an urgent care. X-rays of the foot were performed on 08/04/2024 which revealed a 2 mm metal fragment at the site of the blister. The wound subsequently opened with production of a collection of pus. Some of the overlying skin became necrotic and was debrided by his primary care. Since this time the foot feels much improved with no further pain, redness or discharge. He presents today for possible removal of a foreign body. He denies walking barefoot but feels metal fragment may have entered from his socks without his knowing. He currently reports being asymptomatic with no bleeding, discharge or pain. [facility] Medical History Prediabetes Foreign body in left foot Wound of left foot Eczema Factor 5 Leiden mutation, heterozygous Proteinuria Heart murmur Pedal edema Class 1 obesity with body mass index (BMI) of 34.0 to 34.9 in adult NAION (non-arteritic anterior ischemic optic neuropathy) Tubular adenoma Labyrinthitis Chronic sinusitis Nasal polyposis Establishing care with new doctor, encounter for Psoriasis Glaucoma Back pain Squamous cell carcinoma of skin of chest Diabetes Seizure disorder Lumbar disc disease Shortness of breath on exertion Hypercholesteremia HTN (hypertension) Surgical History History of resection of squamous cell skin carcinoma of left gnosticism History of vasectomy H/O sinus surgery History of colonoscopy (~12/28/19) H/O nasal polypectomy Family History Father Stroke Mother Heart problem Social History Housing: House Alcohol intake: current Alcohol intake frequency: a few times a week Patient Tobacco Use Status: Former Tobacco user Tobacco use type: Cigarette Advance Directives Date on File: 03/25/14 service: No Current occupational status: retired Cognitive needs: No Hearing needs: No Vision needs: Yes (reading glasses) Review of Systems Const All systems reviewed & are unremarkable except as noted in HPI and below Physical Exam Vital Signs: Last Vital Signs Pulse 111 H 08/10/24 11:47 BP 197/94 H 08/10/24 11:47 BMI result Body Mass Index 33.9 Const General: no acute distress and well developed Nutritional Appearance: well nourished Orientation/consciousness: patient oriented x3 Limitations: no limitations Resp Effort & Inspection: normal respiratory effort GI Inspection: Yes normal to inspection Skin Other: Warm, dry, no rash Neuro General: patient oriented x3 Extrem Other: Left foot examined: Evidence of prior infection at the level of the 3rd metatarsal head with a healing wound with a small punctum noted in the central portion. The punctum was explored using a splinter forceps. No palpable metal fragment could be identified. No residual purulence collection or necrotic skin was identified. A protective dressing was applied. Assessment & Plan Assessment & Plan (1) Foot abscess, left: Code(s): L02.612 - Cutaneous abscess of left foot Category: Medical (2) Foreign body in left foot: Code(s): S90.852A - Superficial foreign body, left foot, initial encounter Category: Medical Qualifiers: Encounter type: initial encounter Qualified Code(s): S90.852A - Superficial foreign body, left foot, initial encounter Plan 68-year-old male patient presenting with a recent injury to the left foot with subsequent abscess formation. The abscess is drained and the foot is currently much improved. He denies any pain, redness or discharge. On examination there is indeed the residual effect of a previous infection however no active infection is identified. No foreign body could be identified on local explo ration of the punctum which is the apparent entry site. As his wounds are much improved and he is generally asymptomatic at this time I recommended we avoid any further surgical intervention. If he does develop increased pain or redness, exploration of the fluoroscopy would be recommended. I recommended he call should symptoms return. He expressed understanding and agrees with the plan. Coding Level of Care Code New Pt Level 4 (81286) Diagnoses Foot abscess, left L02.612 Foreign body in left foot, initial encounter S90.852A Encounter type: initial encounter
[2024-08-10 11:47] VITALS: BP 197/94; PULSE 111; BMI 33.9
== END 2024-08-10 11:52 | disposition home or self-care (01) ==
PROVIDERS: PCP Physician Assistant Medical; Visit Provider Surgery
DX: L02.612 Cutaneous abscess of left foot (principal); S90.852A Superficial foreign body, left foot, initial encounter
CPT/HCPCS: 99204

== ENCOUNTER → 2024-08-10 11:32 | Outpatient (BNVA) | payer MEDICARE, SELFPAY | PROVIDERS: PCP Physician Assistant Medical; Visit Provider Surgery | DX: L02.612 Cutaneous abscess of left foot (principal); S90.852A Superficial foreign body, left foot, initial encounter; W45.8XXA Other foreign body or object entering through skin, initial encounter; Y93.01 Activity, walking, marching and hiking; Y92.9 Unspecified place or not applicable; Y99.9 Unspecified external cause status | CPT/HCPCS: 99202 ==

== ENCOUNTER → 2024-08-16 11:07 | Outpatient (REF) | payer MEDICARE, SELFPAY ==
--- NOTE | 2024-08-16 11:10 | CA_ITS ---
Transthoracic Echocardiogram Patient (Last, First, Middle): Lars Botello K Gender: Male Date of : 1955 Age: 68 Procedure Date: 08/16/2024 Procedure Type: Transthoracic Echocardiogram Location: OP Height: 177.8 cm Weight: 99.79 kg BSA: 2.17 m2 Heart Rate: 80 bpm BP: 160 / 92 mmHg Grinder Gear: TO Referring MD: Mary Ellen Srivastava PA-C Symptoms: R01.1 - Cardiac murmur, unspecified Study Quality: Adequate w contrast ECG Rhythm: Sinus Conclusions: - The left ventricular systolic function is normal. The calculated ejection fraction is 58% by biplane method. - There is mild calcification of the aortic valve. - No obvious valvular pathology seen on this study. Findings Procedure Information Contrast agent, definity, is being given per protocol without apparent complications. Left Ventricle Normal left ventricular cavity size. The left ventricular systolic function is normal. The calculated ejection fraction is 58% by biplane method. There is no evidence of regional wall motion abnormalities. Diastolic function is normal for age. There is mild septal asymmetric hypertrophy. Atria Both atria are normal in size. Aortic Valve There is a normal trileaflet aortic valve. There is mild calcification of the aortic valve. There is no aortic valve stenosis. There is no aortic valve regurgitation. Mitral Valve The mitral valve appears normal. There is no mitral valve regurgitation. There is no mitral valve stenosis. Pulmonic Valve The pulmonic valve is likely normal. Tricuspid Valve There is trace tricuspid valve regurgitation. There is no evidence of pulmonary hypertension. Great Vessels The asc aorta is normal in size. Venous The inferior vena cava is normal in size and collapses greater than 50% with inspiration. Pericardium/Pleural There is no evidence of pericardial effusion. Prior Study Comparison No prior study available for comparison. Recommendations, Care & Conclusions No obvious valvular pathology seen on this study. Measurements 2D Linear Measurements IVSd: 1.28 0.6-0.9/0.6-1.0 cm LVIDd: 4.75 3.9-5.3/4.2-5.9 cm LVIDd Index: 2.19 2.4-3.2/2.2-3.1 cm/m2 LVIDs: 2.99 2.0-3.6 cm LVPWd: 0.92 0.7-1.1 cm LA Diam: 3.40 2.7-3.8/3.0-4.0 cm LAIDs Index: 1.57 1.5-2.3 cm/m2 LV Mass: 237.07 67-162/88-224 g LV Mass Index: 109.25 43-95/49-115 g/m2 LVOT Diam: 2.30 3.0+(-)1.3 cm 2D Systolic Function EF 4C: 60.00 >55% EF 2C: 54.80 >55% EF BiP: 57.50 >55% Mitral Valve MV Pk E: 0.63 MV PK A: 0.75 MV Decel Time: 129.00 E/A: 0.80 E'Lateral: 8.16 E'Medial: 5.98 E/E' Med: 10.50 E/E' Lat: 7.70 PHT: 38.00 MVA PHT: 5.79 Decel Wythe: 4.90 Aortic Valve AoV Pk Chapo: 1.16 AoV Mn Chapo: 0.78 AoV VTI: 0.24 AoV Pk Grad: 5.00 Aov Mn Grad: 3.00 MAURICIO Cont.VTI: 4.01 LVOT LVOT Pk Chapo: 0.99 LVOT Mn Chapo: 0.71 LVOT VTI: 0.23 LVOT Pk Grad: 4.00 LVOT Mn Grad: 2.00 LVOT Diam: 2.30 LVOT Area: 4.15 Diastolic Function MV Pk E: 0.63 MV Pk A: 0.75 E/A: 0.80 E'Medial: 5.98 E/E' Med: 10.50 E' Laterial: 8.16 E/E' Lat: 7.70 Right Ventricle TAPSE (mm): 21.40 TVS' Chapo: 14.40 Tricuspid Valve RA Press: 8.00 Great Vessels Aorta Sinus of Valsalva: 4.18 2.0-3.5 cm Ao Asc: 3.80 2.1-3.4 cm Updated in Other Vendor System with Status of Final Isaak Rogers MD electronically signed on 08/18/2024 11:06:37 AM with status of Final
== END ==
LOC: HO.CARD 11:07
PROVIDERS: PCP Physician Assistant Medical; Visit Provider Physician Assistant Medical
DX: R01.1 Cardiac murmur, unspecified (principal)
CPT/HCPCS: 93306; Q9957

== ENCOUNTER → 2024-08-16 11:10 | Outpatient (BNV) | payer MEDICARE, SELFPAY | PROVIDERS: PCP Physician Assistant Medical; Visit Provider Internal Medicine | DX: I42.2 Other hypertrophic cardiomyopathy (principal); I35.8 Other nonrheumatic aortic valve disorders | CPT/HCPCS: 93306 ==

== ENCOUNTER 2024-09-13 10:59 | Outpatient (AMB) | payer MEDICARE, SELFPAY ==
--- NOTE | 2024-09-13 11:05 | MHC.OFFVIS ---
Intake Visit Reasons: proteinuria Intake Note: Patient is present for PROTEINURIA Urology Medication:NONE Antibiotic Allergy:NONE Blood Thinner:NONE User Experience Developer Required: No Allergies Shellfish Allergy (Intermediate, Uncoded 09/13/24 14:27) ITCHING/CHEST PRESSURE Medication List - Last Reconciled 09/13/24 by YENIFER Cool- aspirin 325 mg PO DAILY atorvastatin 40 mg PO DAILY 90 days betamethasone dipropionate 0.05% appl topical diazepam 5 mg PO DAILY PRN hydrochlorothiazide 25 mg PO DAILY 90 days hydrocortisone 2.5% 1 appl topical BID-TID PRN lisinopril 40 mg PO DAILY metformin 500 mg PO DAILY montelukast 10 mg PO DAILY 90 days multivitamin 1 tab PO DAILY phenytoin sodium extended 400 mg (4 x 100 mg) PO DAILY tadalafil (Cialis) 20 mg PO DAILY PRN 30 days tadalafil (Cialis) 5 mg PO DAILY 90 days timolol maleate 0.5% drps HPI Comments Details: Lars is a very pleasant 68-year-old male patient of Dr. Hamilton. He has a past medical history of calcification of aortic valve, hypogonadism, prediabetes, eczema, factor 5 Leiden mutation, proteinuria, heart murmur, pedal edema, obesity, chronic sinusitis, psoriasis, glaucoma, back pain, seizure disorder, lumbar disc disease, hypercholesteremia, and hypertension. He presents to the office today as a new patient for hypogonadism as well as proteinuria. In discussion with the patient today he reports having a longstanding history of ED and has previously trialed p.r.n. dosing of Cialis and did not find this helpful. He reports he is able to obtain an erection however feels maintaining erections are difficult. He reports having recently established primary care and discussing this with his PCP at which time labs were ordered for further assessment evaluation. These results were reviewed and communicated with the patient today. PSA: 09/11 0.4, 01/13 0.4, 08/15 0.4 Testosterone: 08/15 121 Free testosterone: 08/15 12.2 We did discussed correlation of hypogonadism and erectile dysfunction. We discussed potential causes of ED as well as hypogonadism and further treatment options and risks and benefits of these treatment options. When asked he does report at times he experiences episodes of urinary frequency however relates this to the change in his hypertensive medications. He reports noting increased urinary frequency with hydrochlorothiazide. However he does feel he is managing this well independently. He denies urinary urgency, incontinence, nocturia, hematuria, dysuria, foul smelling urine, changes to urinary stream, flank pain, fever, and or chills. He is happy with his current voiding parameters. In office urinalysis results reviewed with the patient today. All questions were answered. We also discussed the importance of lifestyle modifications to assist with ED as well as overall health and well-being. He discusses his intentional weight loss over the last year. He otherwise offers no other issues or concerns at this time. [facility] Medical History Calcification of aortic valve Low testosterone level in male Prediabetes Foreign body in left foot Wound of left foot Eczema Factor 5 Leiden mutation, heterozygous Proteinuria Heart murmur Pedal edema Class 1 obesity with body mass index (BMI) of 34.0 to 34.9 in adult NAION (non-arteritic anterior ischemic optic neuropathy) Tubular adenoma Labyrinthitis Chronic sinusitis Nasal polyposis Establishing care with new doctor, encounter for Psoriasis Glaucoma Back pain Squamous cell carcinoma of skin of chest Diabetes Seizure disorder Lumbar disc disease Shortness of breath on exertion Hypercholesteremia HTN (hypertension) Surgical History History of resection of squamous cell skin carcinoma of left latter day History of vasectomy H/O sinus surgery History of colonoscopy (~12/28/19) H/O nasal polypectomy Family History Father Stroke Mother Heart problem Social History Housing: House Alcohol intake: current Alcohol intake frequency: a few times a week Patient Tobacco Use Status: Former Tobacco user Tobacco use type: Cigarette Advance Directives Date on File: 03/25/14 service: No Current occupational status: retired Cognitive needs: No Hearing needs: No Vision needs: Yes (reading glasses) Review of Systems Const All systems reviewed & are unremarkable except as noted in HPI and below Physical Exam Const General: cooperative, healthy appearing, comfortable, no acute distress, well developed, alert and awake Nutritional Appearance: overweight Orientation/consciousness: patient oriented x3 Limitations: no limitations HEENT Head: Yes normal to inspection, Yes normocephalic and Yes atraumatic Ears: hearing grossly normal bilaterally Eyes General: appearance normal, both eyes and all related structures Neck Neck: Yes normal visual inspection and Yes trachea midline Chest Chest palpation & inspection: normal inspection of the chest Resp Effort & Inspection: normal respiratory effort and able to speak in complete sentences Cardio Rate: regular rate GI Inspection: Yes normal to inspection General: Yes no CVA tenderness Back/Spine/Pelvis Back: no CVA tenderness Skin General skin exam: no rashes or lesions noted Neuro General: patient oriented x3 Extrem General: Yes normal to inspection Psych Appearance: grossly normal and well kempt Mental Status: mental status grossly normal Speech and movement: Normal speech and movement present and Clear speech present Affect: normal affect Attitude: cooperative Thought process: Normal thought process present Thought content: Normal thought content present Insight: Fair insight present (Psych) Judgement: Fair judgement present (Psych) Results AMB Urinalysis, Automated UA Leukoctes 0 Christy/uL Last Edit by BRITTON May on 09/13/24 11:17 UA Nitrite Negative Last Edit by BRITTON May on 09/13/24 11:17 UA Urobilinogen 0.2 mg/dL Last Edit by BRITTON May on 09/13/24 11:17 UA Protein 100 mg/dL Last Edit by BRITTON May on 09/13/24 11:17 UA pH 6.0 Last Edit by BRITTON May on 09/13/24 11:17 UA Blood 0 Vito/uL Last Edit by BRITTON May on 09/13/24 11:17 UA Specific [place] 1.025 Last Edit by BRITTON May on 09/13/24 11:17 UA Ketone Negative Last Edit by BRITTON May on 09/13/24 11:17 UA Bilirubin 0 mg/dL Last Edit by BRITTON May on 09/13/24 11:17 UA Glucose 0 mg/dL Last Edit by BRITTON May on 09/13/24 11:17 Results Reviewed Results Reviewed: Laboratory Last Values Urine pH (Auto) 6.0 09/13/24 11:17 Specific [place] (Auto) 1.025 09/13/24 11:17 Urine Protein (Auto) 100 mg/dL 09/13/24 11:17 Glucose (UA)(Auto) 0 mg/dL 09/13/24 11:17 Urine Ketones (Auto) Negative 09/13/24 11:17 Urine Blood (Auto) 0 Vito/uL 09/13/24 11:17 Urine Nitrite (Auto) Negative 09/13/24 11:17 Urine Bilirubin (Auto) 0 mg/dL 09/13/24 11:17 Urine Urobilinogen (Auto) 0.2 mg/dL 09/13/24 11:17 Leukocyte Esterase (Auto) 0 Christy/uL 09/13/24 11:17 Assessment & Plan Assessment & Plan (1) Proteinuria: Code(s): R80.9 - Proteinuria, unspecified Category: Medical (2) Low testosterone level in male: Code(s): R79.89 - Other specified abnormal findings of blood chemistry Category: Medical Plan In office urinalysis results reviewed with the patient today; as noted above; we discussed referral to Nephrology for proteinuria Recent testosterone and PSA results reviewed with the patient today; as noted above. We did discussed potential causes of ED as well as hypogonadism; we discussed further treatment options and risks and benefits of these treatment options. Start low-dose Cialis as discussed and prescribed. Prescription provided for p.r.n. dosing. We discussed lifestyle modifications to assist with ED. He currently denies any bothersome urinary issues. He reports be happy with current voiding parameters. Will obtain FSH, LH, prolactin, estradiol, SHBG, and testosterone total and free for further assessment evaluation. All questions were answered. Follow-up in 1-3 months with labs to be completed prior; or sooner with any issues, concerns, and or questions. Orders: Orders Follicle Stimulating Hormone Today R79.89 - Other specified abnormal findings of blood chemistry Lutenizing Hormone Today R7.89 - Other specified abnormal findings of blood chemistry Prolactin Today R7. - Other specified abnormal findings of blood chemistry Estrad Free (Tot Ultra + Free) Today R79.89 - Other specified abnormal findings of blood chemistry AMB Urinalysis Automated Today Z13.9 - Encounter for screening, unspecified Testosterone, Free/Total Today R79.89 - Other specified abnormal findings of blood chemistry Sex Hormone Binding Globulin Today R79.89 - Other specified abnormal findings of blood chemistry Referrals Nephrology Referral R80.9 - Proteinuria, unspecified Medications: New tadalafil (Cialis) administer approximately 30min before sexual activity; do not use more than 1 dose per 24hrs; do not exceed more than 3 times per week. [id number] [facility] Member [id number] 20 mg PO DAILY PRN 12 tabs 4RF sexual activity 30 days tadalafil (Cialis) [id number] [facility] [employer] Member [id number] 5 mg PO DAILY 90 tabs 0RF 90 days Patient Instructions: The patient had an opportunity to ask questions regarding the treatment plan. All questions were answered. Physical exam, labs, and imaging were discussed and reviewed in detail. As well as risks, benefits, and discussion of treatment choices. No major barriers to understanding were identified. The patient expressed understanding and agreement with the above treatment plan. The patient was made aware they should contact our office by phone for worsening of their current condition, the appearance of new symptoms, or with any questions or concerns. Compliance is encouraged with any medications and follow up testing that is ordered. It is a privilege to be allowed the opportunity to participate in? your urological care.? Again, if you have any questions or concerns If you have any questions or concerns please do not hesitate to contact me. The office is [phone]. This note is constructed using voice recognition software. While every effort has been made to ensure accuracy information engineer errors may have been included. Yours sincerely, BIANCA Cool Coding Level of Care Code New Pt Level 4 (36354) Diagnoses Proteinuria R80.9 Low testosterone level in male R79.89
== END 2024-09-13 11:46 | disposition home or self-care (01) ==
LOC: HO.HUSH 11:00
PROVIDERS: PCP Internal Medicine; Visit Provider Nurse Practitioner Family
DX: R80.9 Proteinuria, unspecified (principal); R79.89 Other specified abnormal findings of blood chemistry; Z13.9 Encounter for screening, unspecified
CPT/HCPCS: 99204

== ENCOUNTER → 2024-09-13 10:59 | Outpatient (BNVA) | payer MEDICARE, SELFPAY | PROVIDERS: PCP Internal Medicine; Visit Provider Nurse Practitioner Family | DX: R80.9 Proteinuria, unspecified (principal); R79.89 Other specified abnormal findings of blood chemistry | CPT/HCPCS: 81003; 99202 ==

== ENCOUNTER 2024-10-02 15:31 | Outpatient (AMB) | payer MEDICARE, SELFPAY ==
[2024-10-02 15:30] VITALS: BP 142/80; PULSE 81; O2SAT 95; BMI 33.3
--- NOTE | 2024-10-02 15:30 | HO.NEPHOV_ITS ---
Vital Signs 10/02/24 15:30 10/02/24 15:51 Height 5 ft 8.5 in Weight 222 lb BMI 33.3 BP 142/80 H 130/80 Blood Pressure Location Lt brachial Lt brachial Position Sitting Sitting Pulse 81 Pulse Source Pulse Oximeter Pulse Oximetry (%) 95 Oxygen Delivery Method Room Air Intake Visit Reasons: INP: Proteinuria/ Conf Plug Cutter Required: No Accompanied by: Self / Same As Patient Allergies Shellfish Allergy (Intermediate, Uncoded 09/13/24 14:27) ITCHING/CHEST PRESSURE Medication List - Last Reconciled 10/02/24 by Mitch Peterson MD aspirin 325 mg PO DAILY atorvastatin 40 mg PO DAILY 90 days betamethasone dipropionate 0.05% appl topical diazepam 5 mg PO DAILY PRN hydrochlorothiazide 25 mg PO DAILY 90 days hydrocortisone 2.5% 1 appl topical BID-TID PRN lisinopril 40 mg PO DAILY metformin 500 mg PO DAILY montelukast 10 mg PO DAILY 90 days multivitamin 1 tab PO DAILY phenytoin sodium extended 400 mg (4 x 100 mg) PO DAILY tadalafil (Cialis) 20 mg PO DAILY PRN 30 days tadalafil (Cialis) 5 mg PO DAILY 90 days timolol maleate 0.5% 1 drp ophthalmic (eye) DAILY HPI Comments Details: The patient is a 68-year-old male presenting with proteinuria and chronic kidney disease. Proteinuria was first noted by the patient's former primary care physician, Dr. Ramos, and subsequent tests showed reduced kidney function at 52%. The patient has type 2 diabetes mellitus diagnosed six years ago, initially with high blood glucose and HbA1c levels. Through diet and exercise, he has lost 26 pounds in the past year, reducing his HbA1c to 6.1% and decreasing his metformin dosage. The patient has hypertension, with home readings sometimes reaching 175/100 mmHg. He was on amlodipine 10 mg, which was stopped due to edema, and is now on lisinopril and hydrochlorothiazide, though his blood pressure remains around 150-160 mmHg. The patient has a history of seizure disorder following a traumatic event in the during his [employer] service. He continues on phenytoin without recent seizures for about 25 yrs. 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 He is on aspirin therapy, increased to 325 mg. The patient reports chronic back pain due to disc issues, managed without regular medication. [facility] Medical History Calcification of aortic valve Low testosterone level in male Prediabetes Foreign body in left foot Wound of left foot Eczema Factor 5 Leiden mutation, heterozygous Proteinuria Heart murmur Pedal edema Class 1 obesity with body mass index (BMI) of 34.0 to 34.9 in adult NAION (non-arteritic anterior ischemic optic neuropathy) Tubular adenoma Labyrinthitis Chronic sinusitis Nasal polyposis Establishing care with new doctor, encounter for Psoriasis Glaucoma Back pain Squamous cell carcinoma of skin of chest Diabetes Seizure disorder Lumbar disc disease Shortness of breath on exertion Hypercholesteremia HTN (hypertension) Surgical History History of resection of squamous cell skin carcinoma of left mormon History of vasectomy H/O sinus surgery History of colonoscopy (~12/28/19) H/O nasal polypectomy Family History Father Stroke Mother Heart problem Social History Housing: House Alcohol intake: current Alcohol intake frequency: a few times a week Patient Tobacco Use Status: Former Tobacco user Tobacco use type: Cigarette Advance Directives Date on File: 03/25/14 service: No Current occupational status: retired Cognitive needs: No Hearing needs: No Vision needs: Yes (reading glasses) Review of Systems Const Denies anorexia, Denies fever(s) and Denies weakness Eyes Denies blurry vision Card Denies no additional complaints and Denies dyspnea Resp Reports no additional complaints, Reports cough and Denies dyspnea GI Denies melena and Denies diarrhea Denies hematuria Musc Denies tingling Skin/Breast Denies rash Neuro Denies focal weakness, Denies tingling, Denies tremor(s) and Denies weakness Physical Exam Vital Signs: Last Vital Signs Pulse 81 10/02/24 15:30 BP 130/80 10/02/24 15:51 Pulse Ox 95 10/02/24 15:30 Oxygen Delivery Method Room Air 10/02/24 15:30 BMI result Body Mass Index 33.3 Const General: comfortable Nutritional Appearance: well nourished Orientation/consciousness: patient oriented x3 HEENT Head: No normal to inspection Mouth: moist mucous membranes Neck Neck: Yes supple and Yes no JVD Resp Auscultation: clear to auscultation bilaterally and no rales Cardio Jugular venous distension: no JVD Palpation: no palpable S3 and no palpable S4 Heart sounds: no rubs GI Palpation (GI): Soft to palpation and nontender Percussion: No Fluid wave present General: Yes no CVA tenderness Back/Spine/Pelvis Back: no CVA tenderness Skin General skin exam: no rashes or lesions noted Neuro General: patient oriented x3 Extrem General: Yes no pedal edema and No clubbing Assessment & Plan Assessment & Plan (1) HTN (hypertension): Code(s): I10 - Essential (primary) hypertension Category: Medical (2) Diabetes: Comment: NIDDM Code(s): E11.9 - Type 2 diabetes mellitus without complications Category: Medical (3) Proteinuria: Code(s): R80.9 - Proteinuria, unspecified Category: Medical Plan Jerson has mild CKD with non nephrotic range proteinuria in the setting of longstanding hypertension and diabetes mellitus. He probably has underlying hypertensive diabetic kidney disease. Other causes should be ruled out as well. Hypertension At present blood pressure is acceptable. I will continue with current dose of lisinopril and hydrochlorothiazide. Continue with low-sodium diet and maintain blood pressure less than 130/80. Diabetes mellitus Recent A1c is 6.1% Metformin has been decreased from 1 g b.i.d. down to 500 mg b.i.d.. Encouraged him to continue losing weight Basic workup or ordered as outlined. In the meantime encouraged him to continue avoiding NSAIDs and other nephrotoxic agents. Further workup will be based on the outcome of the baseline investigations. . Orders: Orders Total Protein Urine Random 3 Weeks E11.9 - Type 2 diabetes mellitus without complications, I10 - Essential (primary) hypertension, R80.9 - Proteinuria, unspecified UA and rflx microscopic 3 Weeks E11.9 - Type 2 diabetes mellitus without complications, I10 - Essential (primary) hypertension, R80.9 - Proteinuria, unspecified Phospholipase A2 Receptor Pnl 3 Weeks E11.9 - Type 2 diabetes mellitus without complications, I10 - Essential (primary) hypertension, R80.9 - Proteinuria, unspecified Basic Metabolic Panel 3 Weeks E11.9 - Type 2 diabetes mellitus without complications, I10 - Essential (primary) hypertension, R80.9 - Proteinuria, unspecified Creatinine Urine 3 Weeks E11.9 - Type 2 diabetes mellitus without complications, I10 - Essential (primary) hypertension, R80.9 - Proteinuria, unspecified Complement C3 3 Weeks E11.9 - Type 2 diabetes mellitus without complications, I10 - Essential (primary) hypertension, R80.9 - Proteinuria, unspecified Complement C4 3 Weeks E11.9 - Type 2 diabetes mellitus without complications, I10 - Essential (primary) hypertension, R80.9 - Proteinuria, unspecified Protein Electrophoresis, Serum 3 Weeks E11.9 - Type 2 diabetes mellitus without complications, I10 - Essential (primary) hypertension, R80.9 - Proteinuria, unspecified US renal BI Today N18.9 - Chronic kidney disease, unspecified, R80.9 - Protei nelly, unspecified Coding Level of Care Code New Pt Level 4 (38230) Diagnoses HTN (hypertension) I10 Diabetes E11.9 Proteinuria R80.9
[2024-10-02 15:51] VITALS: BP 130/80
== END 2024-10-02 15:58 | disposition home or self-care (01) ==
LOC: HO.HKA 15:32
PROVIDERS: PCP Internal Medicine; Visit Provider Internal Medicine Hypertension Specialist
DX: I10 Essential (primary) hypertension (principal); E11.9 Type 2 diabetes mellitus without complications; R80.9 Proteinuria, unspecified
CPT/HCPCS: 99204

== ENCOUNTER → 2024-10-02 15:31 | Outpatient (BNVA) | payer MEDICARE, SELFPAY | PROVIDERS: PCP Internal Medicine; Visit Provider Internal Medicine Hypertension Specialist | DX: E11.22 Type 2 diabetes mellitus with diabetic chronic kidney disease (principal); R80.9 Proteinuria, unspecified; I10 Essential (primary) hypertension | CPT/HCPCS: 99202 ==

== ENCOUNTER 2024-10-10 11:04 | Outpatient (REF) | payer MEDICARE, SELFPAY ==
--- NOTE | ~2024-10-10 | US_ITS ---
EXAMINATION: US RETROPERITONEAL LIMITED (RENAL ONLY) CLINICAL INFORMATION: Proteinuria. R 80.9 .. COMPARISON: None available. TECHNIQUE: Real-time ultrasound kidneys using grayscale and color Doppler technique. FINDINGS: RIGHT KIDNEY: 12 x 4 x 5 cm (SAG x AP x TRV). Normal echotexture. Normal renal cortical thickness. No hydronephrosis. No solid or cystic lesion detected. LEFT KIDNEY: 12 x 5 x 5 cm (SAG x AP x TRV). Normal echotexture. Normal renal cortical thickness. No hydronephrosis. No gross solid or cystic lesion detected. US/US renal BI IMPRESSION: No hydronephrosis. Normal exam.. Electronically signed by: Sonny Moran MD 10/10/2024 11:31 AM EDT
== END 2024-10-10 11:05 | disposition home or self-care (01) ==
LOC: HO.HMGCX 11:04
PROVIDERS: PCP Internal Medicine; Visit Provider Internal Medicine Hypertension Specialist
DX: R80.9 Proteinuria, unspecified (principal); N18.9 Chronic kidney disease, unspecified
CPT/HCPCS: 76775

== ENCOUNTER → 2024-10-10 11:06 | Outpatient (BNV) | payer MEDICARE, SELFPAY | PROVIDERS: PCP Internal Medicine; Visit Provider Radiology Diagnostic Radiology | DX: R80.1 Persistent proteinuria, unspecified (principal) | CPT/HCPCS: 76775 ==

== ENCOUNTER 2024-10-12 10:04 | Outpatient (AMB) | payer MEDICARE, SELFPAY ==
--- NOTE | 2024-10-12 10:04 | A.OFFVIS_ITS ---
Intake Visit Reasons: MRI FOLLOW UP Allergies Shellfish Allergy (Intermediate, Uncoded 09/13/24 14:27) ITCHING/CHEST PRESSURE HPI HPI MRI FOLLOW UP: Details: History of Present Illness The patient is a 68-year-old male presenting with lumbar disc herniation and associated radiculopathy symptoms. The patient reports persistent back pain radiating down the legs, which has been ongoing since the MRI conducted in April. The MRI revealed a disc herniation at the L4-5 level, compressing the nerves leading to the legs, causing weakness and numbness. The patient experiences numbness and heaviness in the legs, which occasionally leads to falls. The symptoms have not significantly improved since the MRI, and the patient has not engaged in any specific interventions since then. Pain Description - Onset: Persistent since April - Quality: Numbness and heaviness in legs - Location: Back pain radiating down the legs - Exacerbating factors: Physical activity leading to falls - Relieving factors: None reported Physical Exam - Musculoskeletal: Positive straight leg raise test per patient reported maneuver Results - MRI: Disc herniation at L4-5 compressing nerve roots Pain Management - Affect: Pain impacts mobility and balance, leading to falls - Analgesia: Considering injections for pain relief - Activities of Daily Living: Difficulty with balance and mobility PFSH Medical History Calcification of aortic valve Low testosterone level in male Prediabetes Foreign body in left foot Wound of left foot Eczema Factor 5 Leiden mutation, heterozygous Proteinuria Heart murmur Pedal edema Class 1 obesity with body mass index (BMI) of 34.0 to 34.9 in adult NAION (non-arteritic anterior ischemic optic neuropathy) Tubular adenoma Labyrinthitis Chronic sinusitis Nasal polyposis Establishing care with new doctor, encounter for Psoriasis Glaucoma Back pain Squamous cell carcinoma of skin of chest Diabetes Seizure disorder Lumbar disc disease Shortness of breath on exertion Hypercholesteremia HTN (hypertension) Surgical History History of resection of squamous cell skin carcinoma of left samaritan History of vasectomy H/O sinus surgery History of colonoscopy (~12/28/19) H/O nasal polypectomy Family History Father Stroke Mother Heart problem Social History Housing: House Alcohol intake: current Alcohol intake frequency: a few times a week Patient Tobacco Use Status: Former Tobacco user Tobacco use type: Cigarette Advance Directives Date on File: 03/25/14 service: No Current occupational status: retired Cognitive needs: No Hearing needs: No Vision needs: Yes (reading glasses) Telehealth Telehealth Telehealth Platform: [employer] Location of provider rendering services: practice address Location of patient: address on file Patient Identification confirmed using: Name, : Yes Telehealth method: video Patient verbally consented to treatment: Yes Patient verbally consented to billing insurance company: Yes Patient informed of any privacy concerns related to visit: Yes Minutes spent on Phone/Video with Pt.: 19 Assessment & Plan Assessment & Plan (1) Lumbar radiculopathy: Code(s): M54.16 - Radiculopathy, lumbar region Category: Medical Plan Plan - Plan for bilateral L4-5 transforaminal epidural steroid injection to alleviate lumbar radicular pain. - Recommend aquatic exercises to relieve disc compression and improve core strength. - Consider surgical referral if symptoms worsen or do not improve with conservative management. Patient was informed and verbally consented to the use of an ambient scribe for clinic note documentation during this visit. Discussion Notes I discussed with the patient the MRI findings of a disc herniation at L4-5 causing nerve compression and the associated symptoms of numbness and heaviness in the legs. We reviewed the management options, including conservative treatment with injections and physical therapy versus surgical intervention if symptoms worsen. The patient was informed about the benefits and risks of each approach, and consent was obtained for proceeding with the injections. Patient Instructions - Follow up with the nurse for scheduling the injection procedure. - Engage in aquatic exercises to help relieve symptoms. - Monitor symptoms and report any worsening, such as increased numbness or falls. Coding Level of Care Code Tele Est Pt Level 4 (65766) Diagnoses Lumbar radiculopathy M54.16
== END 2024-10-12 10:05 | disposition home or self-care (01) ==
LOC: HO.PMC 10:04
PROVIDERS: PCP Internal Medicine; Visit Provider Internal Medicine
DX: M54.16 Radiculopathy, lumbar region (principal)
CPT/HCPCS: 99214

== ENCOUNTER 2024-11-01 10:05 | Outpatient (REF) | payer MEDICARE, SELFPAY ==
[2024-11-01 13:20] LABS: Appearance Urine Clear; Glucose Urine UA Negative (Negative); PH 5.5 (5.0-9.0); Specific Gravity - Urine 1.020 (1.005-1.025); UMIC TRIGGER UA YES
[2024-11-01 14:02] LABS: Anion Gap 12 (12-20); Blood Urea Nitrogen 42 mg/dL (9-16); Calcium 8.7 mg/dL (8.4-10.2); Carbon Dioxide 27 mmol/L (22-29); Chloride 107 mmol/L (96-108); Estimated Glomerular Filt Rate 44; Potassium 4.0 mmol/L (3.3-5.1); Sodium 142 mmol/L (135-145)
[2024-11-01 14:16] LABS: Total Protein Urine Random 66 mg/dL (<12)
[2024-11-02 21:38] LABS: Prot Elec - Albumin 3.8 g/dL (3.8-4.8); Prot Elec - Alpha1 0.3 g/dL (0.2-0.3); Prot Elec - Alpha2 0.8 g/dL (0.5-0.9); Prot Elec - Beta 1 0.4 g/dL (0.4-0.6); Prot Elec - Beta 2 0.4 g/dL (0.2-0.5); Prot Elec - Gamma 0.9 g/dL (0.8-1.7); Prot Elec - Total Protein 6.7 g/dL (6.1-8.1)
[2024-11-08 23:13] LABS: Phospholipase A2 IgG ELISA <4 RU/mL; Phospholipase A2 IgG IFA NEGATIVE (NEGATIVE)
== END 2024-11-01 10:06 | disposition home or self-care (01) ==
LOC: HO.HMGCLDS 10:05
PROVIDERS: PCP Internal Medicine; Visit Provider Internal Medicine Hypertension Specialist
DX: I10 Essential (primary) hypertension (principal); E11.9 Type 2 diabetes mellitus without complications; R80.9 Proteinuria, unspecified
CPT/HCPCS: 36415; 80048; 81001; 82570; 83520; 84156; 84165; 86160; 86255

== ENCOUNTER 2024-11-06 15:17 | Outpatient (AMB) | payer MEDICARE, SELFPAY ==
--- NOTE | 2024-11-06 15:27 | HO.NEPHOV_ITS ---
Vital Signs 11/06/24 15:29 11/06/24 16:10 Height 5 ft 8.5 in Weight 223 lb BMI 33.4 BP 145/80 H 130/82 Blood Pressure Location Rt brachial Rt brachial Position Sitting Sitting Pulse 87 Pulse Source Pulse Oximeter Pulse Oximetry (%) 95 Oxygen Delivery Method Room Air Intake Visit Reasons: 4wk f/u w/labs/ CONF Block Mason Required: No Accompanied by: Self / Same As Patient Allergies Shellfish Allergy (Intermediate, Uncoded 09/13/24 14:27) ITCHING/CHEST PRESSURE HPI Comments Details: The patient is a 68-year-old male presenting with proteinuria and chronic kidney disease. Proteinuria was first noted by the patient's former primary care physician, Dr. Ramos, and subsequent tests showed reduced kidney function at 52%. The patient has type 2 diabetes mellitus diagnosed six years ago, initially with high blood glucose and HbA1c levels. Through diet and exercise, he has lost 26 pounds in the past year, reducing his HbA1c to 6.1% and decreasing his metformin dosage. The patient has hypertension, with home readings sometimes reaching 175/100 mmHg. He was on amlodipine 10 mg, which was stopped due to edema, and is now on lisinopril and hydrochlorothiazide, though his blood pressure remains around 150-160 mmHg. The patient has a history of seizure disorder following a traumatic event in the during his [employer] service. He continues on phenytoin without recent seizures for about 25 yrs. 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 He is on aspirin therapy, increased to 325 mg. The patient reports chronic back pain due to disc issues, managed without regular medication. 11/06/24 The patient is a 68-year-old male presenting with chronic kidney disease and proteinuria. Kidney function is at 44%, decreased from July. Proteinuria decreased from 881 mg in March to 600 mg. Stress is reported as a factor affecting health. Lisinopril 40 mg is used for hypertension and proteinuria management. Diabetes mellitus is well-controlled with an A1c of 6.1. Anemia noted with hemoglobin at 12.5 g/dL in March. Advised to maintain hydration and avoid protein restriction. Encouraged to engage in regular physical activity for weight management. Medical History: - Chronic Kidney Disease - Proteinuria - Anemia - Hypertension - Diabetes Mellitus Medications: - Lisinopril 40 mg for hypertension and proteinuria management Social History: - The patient has been involved in physical activities related to moving and home renovation, which includes painting and installing new fixtures. - The patient is working on weight management, aiming to reduce weight from the lower mid-220s to 195 pounds. Diagnostic Results: - Labs: Kidney function at 44%, proteinuria decreased from 881 mg to 600 mg, A1c at 6.1, hemoglobin at 12.5 g/dL - Imaging: Kidney ultrasound on October 10 showed normal kidney size, no blockages, stones, or cysts. [facility] Medical History Calcification of aortic valve Low testosterone level in male Prediabetes Foreign body in left foot Wound of left foot Eczema Factor 5 Leiden mutation, heterozygous Proteinuria Heart murmur Pedal edema Class 1 obesity with body mass index (BMI) of 34.0 to 34.9 in adult NAION (non-arteritic anterior ischemic optic neuropathy) Tubular adenoma Labyrinthitis Chronic sinusitis Nasal polyposis Establishing care with new doctor, encounter for Psoriasis Glaucoma Back pain Squamous cell carcinoma of skin of chest Diabetes Seizure disorder Lumbar disc disease Shortness of breath on exertion Hypercholesteremia HTN (hypertension) Surgical History History of resection of squamous cell skin carcinoma of left presybeterian History of vasectomy H/O sinus surgery History of colonoscopy (~12/28/19) H/O nasal polypectomy Family History Father Stroke Mother Heart problem Social History Housing: House Alcohol intake: current Alcohol intake frequency: a few times a week Patient Tobacco Use Status: Former Tobacco user Tobacco use type: Cigarette Advance Directives Date on File: 03/25/14 service: No Current occupational status: retired Cognitive needs: No Hearing needs: No Vision needs: Yes (reading glasses) Physical Exam Vital Signs: Last Vital Signs Pulse 87 11/06/24 15:29 BP 130/82 11/06/24 16:10 Pulse Ox 95 11/06/24 15:29 Oxygen Delivery Method Room Air 11/06/24 15:29 BMI result Body Mass Index 33.4 Results Reviewed Nephrology Results: Sodium, (135-145) 142 mmol/L 11/01/24 Potassium, (3.3-5.1) 4.0 mmol/L 11/01/24 Chloride, (96-108) 107 mmol/L 11/01/24 Carbon Dioxide, (22-29) 27 mmol/L 11/01/24 BUN, (9-16) 42 mg/dL H 11/01/24 Creatinine, (0.5-1.4) 1.57 mg/dL H 11/01/24 Calcium, (8.4-10.2) 8.7 mg/dL Δ 11/01/24 Urine Protein, (Neg-Trace) 100 (2+) mg/dL H 11/01/24 Urine Creatinine 108.15 mg/dL 11/01/24 Renal US 10/10/24 Assessment & Plan Assessment & Plan (1) HTN (hypertension): Code(s): I10 - Essential (primary) hypertension Category: Medical (2) Diabetes: Comment: NIDDM Code(s): E11.9 - Type 2 diabetes mellitus without complications Category: Medical (3) Proteinuria: Code(s): R80.9 - Proteinuria, unspecified Category: Medical Plan Jerson has mild CKD with non nephrotic range proteinuria in the setting of longstanding hypertension and diabetes mellitus. He probably has underlying hypertensive diabetic kidney disease. Other causes should be ruled out as well. Hypertension At present blood pressure is acceptable. I will continue with current dose of lisinopril and hydrochlorothiazide. Continue with low-sodium diet and maintain blood pressure less than 130/80. Diabetes mellitus Recent A1c is 6.1% Metformin has been decreased from 1 g b.i.d. down to 500 mg b.i.d.. Encouraged him to continue losing weight Basic workup or ordered as outlined. In the meantime encouraged him to continue avoiding NSAIDs and other nephrotoxic agents. Further workup will be based on the outcome of the baseline investigations. .11/06/24 1. Chronic Kidney Disease - Continue lisinopril, monitor kidney function and proteinuria, ensure hydration. Mild bump in creatinine Work up negative thus far USG normal- No obstruction Keep I >O ; Increase PO fluid intake. Continue to avoid nephrotoxins including NSAIDS 2. Proteinuria Most likley due to underlying DM - Maintain lisinopril therapy, monitor proteinuria. 3. Anemia - Monitor hemoglobin levels. 4. Hypertension - Continue lisinopril 40 mg. 5. Diabetes Mellitus - Maintain diabetes management, monitor A1c. Orders: Orders Basic Metabolic Panel 3 Months I10 - Essential (primary) hypertension, N18.9 - Chronic kidney disease, unspecified, R80.9 - Proteinuria, unspecified Total Protein Urine Random 3 Months I10 - Essential (primary) hypertension, N18.9 - Chronic kidney disease, unspecified, R80.9 - Proteinuria, unspecified Creatinine Urine 3 Months I10 - Essential (primary) hypertension, N18.9 - Chronic kidney disease, unspecified, R80.9 - Proteinuria, unspecified UA and rflx microscopic 3 Months I10 - Essential (primary) hypertension, N18.9 - Chronic kidney disease, unspecified, R80.9 - Proteinuria, unspecified Protein Electrophoresis, Serum 3 Months I10 - Essential (primary) hypertension, N18.9 - Chronic kidney disease, unspecified, R80.9 - Proteinuria, unspecified Coding Level of Care Code Est Pt Level 4 (98082) Diagnoses HTN (hypertension) I10 Diabetes E11.9 Proteinuria R80.9
[2024-11-06 15:29] VITALS: BP 145/80; PULSE 87; O2SAT 95; BMI 33.4
[2024-11-06 16:10] VITALS: BP 130/82
== END 2024-11-06 16:13 | disposition home or self-care (01) ==
LOC: HO.HKA 15:18
PROVIDERS: PCP Internal Medicine; Visit Provider Internal Medicine Hypertension Specialist
DX: I10 Essential (primary) hypertension (principal); E11.9 Type 2 diabetes mellitus without complications; R80.9 Proteinuria, unspecified
CPT/HCPCS: 99214

== ENCOUNTER → 2024-11-06 15:17 | Outpatient (BNVA) | payer MEDICARE, SELFPAY | PROVIDERS: PCP Internal Medicine; Visit Provider Internal Medicine Hypertension Specialist | DX: N18.2 Chronic kidney disease, stage 2 (mild) (principal); E11.9 Type 2 diabetes mellitus without complications; I10 Essential (primary) hypertension; R80.8 Other proteinuria; D64.9 Anemia, unspecified | CPT/HCPCS: 99212 ==

== ENCOUNTER 2024-11-07 13:00 | Outpatient (AMB) | payer MEDICARE, SELFPAY ==
[2024-11-07 13:07] VITALS: BP 166/79; PULSE 86; RESP 14; TEMP 36.6; O2SAT 96; BMI 33.1
--- NOTE | 2024-11-07 13:07 | A.OFFPC_ITS ---
Vital Signs 11/07/24 13:07 11/07/24 14:04 Height 5 ft 8.5 in Weight 221 lb BMI 33.1 BP 166/79 H 141/71 H Blood Pressure Location Rt brachial Rt brachial Position Sitting Sitting Respiration 14 Pulse 86 Pulse Source Pulse Oximeter Temp 97.8 F Temp Source Temporal Artery Scan Pulse Oximetry (%) 96 Oxygen Delivery Method Room Air Intake Visit Reasons: 3 month follow up Thermograph Operator Required: No Accompanied by: Self / Same As Patient Allergies Shellfish Allergy (Intermediate, Uncoded 11/07/24 13:20) ITCHING/CHEST PRESSURE Medication List - Last Reconciled 11/07/24 by Mary Ellen Srivastava PA-C aspirin 325 mg PO DAILY atorvastatin 40 mg PO DAILY betamethasone dipropionate 0.05% appl topical diazepam 5 mg PO DAILY PRN hydrochlorothiazide 25 mg PO DAILY 90 days hydrocortisone 2.5% 1 appl topical BID-TID PRN lisinopril 40 mg PO DAILY metformin 500 mg PO DAILY montelukast 10 mg PO DAILY 90 days multivitamin 1 tab PO DAILY phenytoin sodium extended 400 mg (4 x 100 mg) PO DAILY tadalafil (Cialis) 20 mg PO DAILY PRN 30 days tadalafil (Cialis) 5 mg PO DAILY 90 days timolol maleate 0.5% 1 drp ophthalmic (eye) DAILY Tobacco use date assessed: 11/07/24 Dental Screening Dental Screen Date: 07/11/24 HPI 3 month follow up HPI Details The patient is a 68-year-old male presenting with management of hypertension, chronic kidney disease, and diabetes mellitus. The patient has a history of essential hypertension, which has been managed with lisinopril and hydrochlorothiazide. He reports that his blood pressure was 142/82 mmHg initially and later reduced to 130/80 mmHg during a recent visit. He has been advised to maintain a low sodium diet and monitor his blood pressure regularly. The patient has chronic kidney disease, initially identified by proteinuria noted during routine blood work. His glomerular filtration rate (GFR) has decreased from greater than 60 to 44, indicating progression of the disease. The real estate utilization officer suspects hypertensive diabetic kidney disease as the underlying cause. The patient has a history of diabetes mellitus, with a recent hemoglobin A1c of 6.3%. His diabetes management includes metformin, which was reduced from 1 g to 500 mg twice daily. He has been encouraged to lose weight and avoid NSAIDs. The patient reports sciatica and neuropathy, with no sensation from the knee to the hip on the front of the thigh. He has experienced falls due to lack of sensation and has a history of ruptured intervertebral discs. He is scheduled for a cortisone injection to manage his back pain. Social history - Substance Use: Reports use of cannabis gummies for pain management. - Functional Status: Reports difficulty with certain physical activities due to back pain and neuropathy. [facility] Medical History (Updated 11/07/24 @ 15:25 by Mary Ellen Srivastava PA-C) Neuropathy Ruptured intervertebral disc Sciatica Type 2 diabetes mellitus with hemoglobin A1c goal of less than 7.0% Calcification of aortic valve Low testosterone level in male Prediabetes Foreign body in left foot Wound of left foot Eczema Factor 5 Leiden mutation, heterozygous Proteinuria Heart murmur Pedal edema Class 1 obesity with body mass index (BMI) of 34.0 to 34.9 in adult NAION (non-arteritic anterior ischemic optic neuropathy) Tubular adenoma Labyrinthitis Chronic sinusitis Nasal polyposis Establishing care with new doctor, encounter for Psoriasis Glaucoma Back pain Squamous cell carcinoma of skin of chest Diabetes Seizure disorder Lumbar disc disease Shortness of breath on exertion Hypercholesteremia HTN (hypertension) Surgical History History of resection of squamous cell skin carcinoma of left presybeterian History of vasectomy H/O sinus surgery History of colonoscopy (~12/28/19) H/O nasal polypectomy Family History Father Stroke Mother Heart problem Social History Housing: House Alcohol intake: current Alcohol intake frequency: a few times a week Patient Tobacco Use Status: Former Tobacco user Tobacco use type: Cigarette Advance Directives Date on File: 03/25/14 service: No Current occupational status: retired Cognitive needs: No Hearing needs: No Vision needs: Yes (reading glasses) Questionnaire PHQ-9 Over the last 2 weeks, how often have you been bothered by any of the following problems? 1. Little interest or pleasure in doing things: not at all 2. Feeling down, depressed, or hopeless: not at all 3. Trouble falling or staying asleep, or sleeping too much: not at all 4. Feeling tired or having little energy: not at all 5. Poor appetite or overeating: not at all 6. Feeling bad about yourself - or that you are a failure or have let yourself or your family down: not at all 7. Trouble concentrating on things, such as reading the newspaper or watching television: not at all 8. Moving or speaking so slowly that other people could have noticed. Or the opposite - being so fidgety or restless that you have been moving around a lot more than usual: not at all 9. Thoughts that you would be better off or of hurting yourself in some way: not at all Total score: 0 Depression Screening Interpretation: Negative Depression Screening Done: Yes 20936 - PHQ-9 Billing: Yes Source: Developed by Drs. Kareem Cruz, Sadie Hogan, Eder Mittal and colleagues, with an educational leah from [employer]. Thrive Questionnaire Date Thrive assessed: 08/08/24 I am a: Patient What is your living situation today?: I have a steady place to live Within the past 12 months, did the food you bought not last and you didn't have the money to get more?: Never true Within the past 12 months, did you worry whether your food would run out before you got money to buy more?: Never true Do you have trouble paying for medicines?: No Do you have trouble getting transportation to medical appointments?: No Do you have trouble paying your heating and electricity bill?: No Do you have trouble taking care of your child, family member or friend?: No Do you have trouble with day-to-day activities such as bathing, preparing meals, shopping, managing finances, etc.?: No Are you currently unemployed and looking for a job?: No Are you interested in more education?: No Please select the resources that you would like help with: None Currently or been in a relationship where the following occur: No concerns reported THRIVE Score: 0 AUDIT C Alcohol Use Questionnaire (AUDIT-C) 1. How often do you have a drink containing alcohol?: 2-3 times a week 2. How many drinks containing alcohol do you have on a typical day when you are drinking?: 1 or 2 3. How often do you have six or more drinks on one occasion?: Never Total Score: 3 Score Reviewed/Action Taken: No ERASTO-7 AMB Questionnaire ERASTO-7 Date ERASTO - 7 assessed: 08/08/24 Feeling nervous, anxious, or on edge: 0 = Not at all Not being able to stop or control worryin = Not at all Worrying too much about different things: 0 = Not at all Trouble relaxin = Not at all Being so restless that it is hard to sit still: 0 = Not at all Becoming easily annoyed or irritable: 0 = Not at all Feeling afraid as if something awful might happen: 0 = Not at all Total ERASTO-7 score (0-4 normal; 5-9 mild; 10-14 moderate; 15-21 severe): 0 Source: Developed by Drs. Kareem Cruz, Sadie Hogan, Eder Mittal and colleagues, with an educational leah from [employer]. ERASTO-7 Assessment Billing ERASTO-7 Assessment Tool: ERASTO-7 Assessment 24776 Review of Systems Const Details: - Cardiovascular: Reports elevated blood pressure readings. Denies chest pain or palpitations. - Neurological: Reports numbness from the knee to the hip on the front of the thigh. Denies headaches or dizziness. - Musculoskeletal: Reports back pain and sciatica. Denies joint swelling or stiffness. All systems reviewed & are unremarkable except as noted in HPI and below Physical exam (Primary Care) Vital Signs: Last Vital Signs Temp 97.8 F 11/07/24 13:07 Pulse 86 11/07/24 13:07 Resp 14 11/07/24 13:07 BP 141/71 H 11/07/24 14:04 Pulse Ox 96 11/07/24 13:07 Oxygen Delivery Method Room Air 11/07/24 13:07 Care Plan Goal for BP management: <140/90 patient will return tomorrow for blood pressure check he took his blood pressure medication late today he will take it at his normal time tomorrow and he will continue hydrochlorothiazide 25 mg and lisinopril 40 mg daily BMI result Body Mass Index 33.1 BMI Assessment/Plan discussion: High BMI High, discussed plan: lifestyle, weight reduction, dietary, physical activity, alcohol moderation and other Tobacco/Smoking Status: Tobacco use Status Tobacco use date assessed 11/07/24 11/07/24 13:13 Patient Tobacco Use Status Former Tobacco user 11/07/24 13:13 Tobacco use type Cigarette 11/07/24 13:13 PHQ-9: PHQ-9 Score PHQ-9: Total score 0 11/07/24 14:07 Depression Screening Interpretation: Negative Thrive Assessment: Date of Thrive Assessment Date Thrive assessed 08/08/24 11/07/24 13:13 Currently or been in a relationship where the following occur: No concerns reported Const Other: Appearance: Alert. Oriented X3. No acute distress. Head: Normal external exam. Normocephalic. Atraumatic. Eyes: Pupils are equal, round, and reactive to light. Extraocular movements intact. Conjunctiva and sclera normal. Eyelids normal. Throat: Pharynx normal. Uvula midline. Moist mucous membranes. Neck: Normal inspection. Neck supple. Full range of motion. Cardiovascular: Blood pressure was high at 146/71. Normal heart rate and rhythm. Heart sound normal. No murmurs noted. Pulses normal throughout. Respiratory: No respiratory distress. Painless inspiration. Breath sounds normal. No wheezes/rales/rhonchi noted. Chest nontender. No accessory muscle usage noted or decreased air movement noted. Back: Full range of motion noted. Skin: Skin warm and dry. Normal skin color. Normal skin turgor. No rashes/lesions/lacerations noted. Extremities: No lower extremity edema. Extremities exhibit normal range of motion. Neuro: Oriented X 3. No motor deficit. No sensory deficit. Reflexes normal. Results AMB Hemoglobin A1c AMB Hemoglobin A1c 6.3 % Last Edit by YOLA Hernandez on 11/07/24 13:29 Results Reviewed Results Reviewed: Laboratory Last Values Hgb A1c (Clinic) 6.3 % (4.0-6.0) H 11/07/24 13:19 - Labs: Proteinuria noted in routine blood work. - Labs: Hemoglobin A1c of 6.3%. - Imaging: MRI showed ruptured intervertebral discs. Coding Level of Care Code Est Pt Level 4 (79983) Complex EM visit Add On G2211 Diagnoses HTN (hypertension) I10 CKD (chronic kidney disease) N18.9 Type 2 diabetes mellitus with hemoglobin A1c goal of less than 7.0% E11.9 Sciatica M54.30 Ruptured intervertebral disc M51.9 Neuropathy G62.9 Additional Codes ERASTO-7 Assessment Billing - ERASTO-7 Assessment Tool: ERASTO-7 Assessment 11595 ([id number]) PHQ-9 - 39503 - PHQ-9 Billing: Yes ([id number]) Time Spent (min) 50 Assessment & Plan Assessment & Plan (1) HTN (hypertension): Code(s): I10 - Essential (primary) hypertension Category: Medical Plan: The plan for managing essential hypertension includes maintaining the current regimen of lisinopril and hydrochlorothiazide, adhering to a low sodium diet, and monitoring blood pressure regularly. The patient is advised to return for a blood pressure check to ensure control, especially after noting elevated readings at home. (2) CKD (chronic kidney disease): Code(s): N18.9 - Chronic kidney disease, unspecified Category: Medical Plan: The patient is being followed by a real estate utilization officer for chronic kidney disease, suspected to be secondary to hypertensive diabetic kidney disease. The real estate utilization officer has recommended further blood work and protein electrophoresis to rule out other causes. (3) Type 2 diabetes mellitus with hemoglobin A1c goal of less than 7.0%: Code(s): E11.9 - Type 2 diabetes mellitus without complications Category: Medical Plan: Diabetes management includes continuing metformin at 500 mg twice daily, with a focus on weight loss and avoiding NSAIDs. The patient's hemoglobin A1c is currently at 6.3%, indicating good control. (4) Sciatica: Code(s): M54.30 - Sciatica, unspecified side Category: Medical Plan: The patient reports sciatica and is scheduled for a cortisone injection to manage pain. (5) Ruptured intervertebral disc: Code(s): M51.9 - Unspecified thoracic, thoracolumbar and lumbosacral intervertebral disc disorder Category: Medical Plan: The MRI confirmed ruptured intervertebral discs, and the patient is considering cortisone injections as a conservative management approach before exploring surgical options. (6) Neuropathy: Code(s): G62.9 - Polyneuropathy, unspecified Category: Medical Plan: The patient experiences neuropathy with numbness from the knee to the hip, likely due to nerve compression from disc issues. Plan Plan Patient was informed and verbally consented to the use of an ambient scribe for clinic note documentation during this visit. 1. Essential Hypertension The plan for managing essential hypertension includes maintaining the current regimen of lisinopril and hydrochlorothiazide, adhering to a low sodium diet, and monitoring blood pressure regularly. The patient is advised to return for a blood pressure check to ensure control, especially after noting elevated readings at home. 2. Chronic Kidney Disease The patient is being followed by a real estate utilization officer for chronic kidney disease, suspected to be secondary to hypertensive diabetic kidney disease. The real estate utilization officer has recommended further blood work and protein electrophoresis to rule out other causes. 3. Diabetes Mellitus Diabetes management includes continuing metformin at 500 mg twice daily, with a focus on weight loss and avoiding NSAIDs. The patient's hemoglobin A1c is currently at 6.3%, indicating good control. 4. Sciatica The patient reports sciatica and is scheduled for a cortisone injection to manage pain. 5. Ruptured Intervertebral Disc The MRI confirmed ruptured intervertebral discs, and the patient is considering cortisone injections as a conservative management approach before exploring surgical options. 6. Neuropathy The patient experiences neuropathy with numbness from the knee to the hip, likely due to nerve compression from disc issues. During the visit, we discussed the management of hypertension, chronic kidney disease, and diabetes mellitus. The patient was advised to maintain a low sodium diet and monitor blood pressure regularly. We also reviewed the importance of weight loss and avoiding NSAIDs for diabetes management. The patient is scheduled for a cortisone injection to manage sciatica and back pain. Orders: Orders AMB Hemoglobin A1c Today E11.9 - Type 2 diabetes mellitus without complications Medications: Refilled diazepam 5 mg PO DAILY PRN 30 tabs 0RF anxiety Patient Instructions: - Take blood pressure medication as prescribed and monitor blood pressure regularly. - Follow a low sodium diet to help manage blood pressure. - Continue taking metformin as prescribed and focus on weight loss. - Avoid NSAIDs to prevent worsening of kidney function. - Return for a blood pressure check with the nurse tomorrow. - Attend scheduled cortisone injection for back pain management.
[2024-11-07 14:04] VITALS: BP 141/71
== END 2024-11-07 13:48 | disposition home or self-care (01) ==
LOC: HO.HMCSH 13:00
PROVIDERS: PCP Internal Medicine; Visit Provider Physician Assistant Medical
DX: I12.9 Hypertensive chronic kidney disease with stage 1 through stage 4 chronic kidney disease, or unspecified chronic kidney disease (principal); N18.9 Chronic kidney disease, unspecified; E11.9 Type 2 diabetes mellitus without complications; M54.30 Sciatica, unspecified side; M51.9 Unspecified thoracic, thoracolumbar and lumbosacral intervertebral disc disorder; G62.9 Polyneuropathy, unspecified

== ENCOUNTER → 2024-11-07 13:00 | Outpatient (BNVA) | payer MEDICARE, SELFPAY | PROVIDERS: PCP Internal Medicine; Visit Provider Physician Assistant Medical | DX: E11.22 Type 2 diabetes mellitus with diabetic chronic kidney disease (principal); I12.9 Hypertensive chronic kidney disease with stage 1 through stage 4 chronic kidney disease, or unspecified chronic kidney disease; N18.9 Chronic kidney disease, unspecified; E11.40 Type 2 diabetes mellitus with diabetic neuropathy, unspecified; M54.30 Sciatica, unspecified side; M51.9 Unspecified thoracic, thoracolumbar and lumbosacral intervertebral disc disorder | CPT/HCPCS: 83036; 96127; 99212 ==

== ENCOUNTER → 2024-11-08 13:05 | Outpatient (BNVA) | payer MEDICARE, SELFPAY | PROVIDERS: PCP Internal Medicine | DX: Z01.30 Encounter for examination of blood pressure without abnormal findings (principal) | CPT/HCPCS: 99211 ==

== ENCOUNTER → 2024-11-15 13:06 | Outpatient (BNVA) | payer MEDICARE, SELFPAY | PROVIDERS: PCP Internal Medicine | DX: I10 Essential (primary) hypertension (principal) | CPT/HCPCS: 99211 ==

== ENCOUNTER 2024-11-22 08:21 | Outpatient (REF) | payer MEDICARE, SELFPAY ==
--- NOTE | ~2024-11-22 | FL_ITS ---
EXAMINATION: XR FLUOROSCOPY WITH IMAGES CLINICAL INFORMATION: Lumbar pain management procedure. COMPARISON: None available. TECHNIQUE: Fluoroscopy provided to: Dr. Echeverria Fluoroscopy time: 0.2 minutes DAP: 0.0400 mGycm2 Images: 2 FINDINGS: 2 fluoroscopic spot images obtained of the lumbar spine during pain management injection procedure. Please refer of the full procedural report for further detail. FL/FL guidance in treatment room IMPRESSION: Fluoroscopic guidance. Electronically signed by: Clint Cuello MD 11/22/2024 02:16 PM EDT
== END 2024-11-22 08:22 | disposition home or self-care (01) ==
LOC: CF 08:21
PROVIDERS: Visit Provider Internal Medicine
DX: M54.16 Radiculopathy, lumbar region (principal)
CPT/HCPCS: 64483; J1100; J2003; Q9967

== ENCOUNTER 2024-11-22 10:43 | Outpatient (AMB) | payer MEDICARE, SELFPAY ==
--- NOTE | 2024-11-22 10:48 | MHC.OFFVIS ---
Vital Signs 11/22/24 10:52 11/22/24 11:04 Height 5 ft 8.5 in Weight 221 lb BMI 33.1 BP 162/76 H 161/89 H Blood Pressure Location Lt radial Lt radial Position Sitting Sitting Respiration 16 16 Pulse 81 92 Pulse Source Pulse Oximeter Pulse Oximeter Pulse Oximetry (%) 96 94 Oxygen Delivery Method Room Air Room Air Intake Visit Reasons: Aurelio L4 TFESI Allergies Shellfish Allergy (Intermediate, Uncoded 11/07/24 13:20) ITCHING/CHEST PRESSURE HPI HPI Aurelio L4 TFESI: Details: Patient presents for scheduled procedure. Denies any recent cough, cold, infection, fever or other significant changes in medical history since last office visit. [facility] Medical History (Updated 11/07/24 @ 15:25 by Mary Ellen Srivastava PA-C) Neuropathy Ruptured intervertebral disc Sciatica Type 2 diabetes mellitus with hemoglobin A1c goal of less than 7.0% Calcification of aortic valve Low testosterone level in male Prediabetes Foreign body in left foot Wound of left foot Eczema Factor 5 Leiden mutation, heterozygous Proteinuria Heart murmur Pedal edema Class 1 obesity with body mass index (BMI) of 34.0 to 34.9 in adult NAION (non-arteritic anterior ischemic optic neuropathy) Tubular adenoma Labyrinthitis Chronic sinusitis Nasal polyposis Establishing care with new doctor, encounter for Psoriasis Glaucoma Back pain Squamous cell carcinoma of skin of chest Diabetes Seizure disorder Lumbar disc disease Shortness of breath on exertion Hypercholesteremia HTN (hypertension) Surgical History History of resection of squamous cell skin carcinoma of left jehovah's witness History of vasectomy H/O sinus surgery History of colonoscopy (~12/28/19) H/O nasal polypectomy Family History Father Stroke Mother Heart problem Social History Housing: House Alcohol intake: current Alcohol intake frequency: a few times a week Patient Tobacco Use Status: Former Tobacco user Tobacco use type: Cigarette Advance Directives Date on File: 03/25/14 service: No Current occupational status: retired Cognitive needs: No Hearing needs: No Vision needs: Yes (reading glasses) Physical Exam Vital Signs: Last Vital Signs Pulse 92 11/22/24 11:04 Resp 16 11/22/24 11:04 BP 161/89 H 11/22/24 11:04 Pulse Ox 94 11/22/24 11:04 Oxygen Delivery Method Room Air 11/22/24 11:04 BMI result Body Mass Index 33.1 Office Procedures Details: Transforaminal epidural steroid injection, Bilateral L4 After obtaining written consent, pre-procedure blood pressure and heart rate were stable and recorded in the nursing record. The patient was placed in the prone position on the fluoroscopy table. The lumbosacral area was prepped with chloraprep, allowed to dry and draped in sterile fashion. Using fluoroscopy, the skin overlying our target was anesthetized with 0.5% lidocaine. A 22 gauge 3.5 inch spinal needle was advanced to the safe triangle in the upper pole of the right L4 foramen. No paresthesias were elicited with needle placement and aspiration was negative for blood and CSF. Correct needle position was confirmed with approximately 1 ml contrast dye (Omnipaque 180 mg/ml) injected under real-time fluoroscopy. No evidence of vascular or intrathecal uptake was seen and there was both epidural and peripheral spread of the contrast agent. 7.5 mg dexamethasone plus 1 ml containing 0.5% lidocaine was slowly injected. The needle was flushed and removed. The same procedure was repeated for the other side. The skin was cleansed and a sterile bandages were applied. The patient tolerated the procedure well and no complications were encountered. Following the procedure the patient's vital signs were stable. The patient was discharged home in good condition with post-procedural instructions. Time Out: Immediately prior to the procedure, the following was verbally confirmed that there is a signed consent form and that the correct patient, planned procedure, site and side are consistent with documentation and that necessary equipment and/or blood products are available prior to the start of the case. Complications: none EBL: <5 cc 25133 - Lumbar/Sacral (Bilateral) Procedure code (CPT) selection complete Assessment & Plan Assessment & Plan (1) Lumbar radiculopathy: Code(s): M54.16 - Radiculopathy, lumbar region Category: Medical Plan Patient is status post bilateral L4 TFESI. Patient tolerated procedure well and was discharged home in stable condition with discharge instructions. All questions were answered. We will follow-up via telephone or in clinic to assess response to therapy. A follow-up appointment was made during today's visit. Orders: Orders FL guidance in treatment room Today Isidra Gamboa APRN, [employer]SEL M54.16 - Radiculopathy, lumbar region AMB Transforaminal Epidural Steroid Injection Today Lonnie Echeverria MD M54.16 - Radiculopathy, lumbar region Coding Level of Care Code Procedure Only Diagnoses Lumbar radiculopathy M54.16 CPT Codes Transforaminal Epidural Steroid Inj - TESI 3: 39994 - Lumbar/Sacral ([id number])
[2024-11-22 10:52] VITALS: BP 162/76; PULSE 81; RESP 16; O2SAT 96; BMI 33.1
[2024-11-22 11:04] VITALS: BP 161/89; PULSE 92; RESP 16; O2SAT 94
== END 2024-11-22 11:13 | disposition home or self-care (01) ==
LOC: HO.PMCPRC 10:43
PROVIDERS: PCP Internal Medicine; Visit Provider Internal Medicine
DX: M54.16 Radiculopathy, lumbar region (principal)
CPT/HCPCS: 64483

== ENCOUNTER 2025-01-02 15:02 | Outpatient (AMB) | payer MEDICARE, SELFPAY ==
[2025-01-02 15:06] VITALS: BP 164/80; PULSE 89; TEMP 36.8; O2SAT 95; BMI 33.3
--- NOTE | 2025-01-02 15:06 | AM.OFFWIN_ITS ---
Intake Vital Signs 01/02/25 15:06 01/02/25 15:16 Height 5 ft 8.5 in Weight 222 lb BMI 33.3 BP 164/80 H Blood Pressure Location Lt brachial Position Sitting Pulse 89 Pulse Source Pulse Oximeter Temp 98.3 F Temp Source Oral Pulse Oximetry (%) 95 Oxygen Delivery Method Room Air Comment High BP- pt states he has white coat syndrome. provider notified. Intake Visit Reasons: EP 1 month with chest congestion/headaches Intake Note: pt presents with chest congestion with productive coughing, sinus congestion and sinus headache and fatigued for 4 wks. negative covid. Patient Tobacco Use Status: Former Tobacco user Allergies Shellfish Allergy (Intermediate, Uncoded 01/02/25 15:14) ITCHING/CHEST PRESSURE Do you need a note to return to daycare/school/sports/work: No HPI HPI Comments History of Present Illness Details He presents to office with cold symptoms x 1 month Has not been seen yet He states 4 weeks of ongoing symptoms Initially he lost voice which then moved into sinuses and chest Negative covid at home so assumed URI He said symptoms have not resolved yet Presents today because sinus pressure, swollen feeling and lingering congestion Hx of nasal polyps but has no had sinus issues since + lingering chest tightness with cough + phlegm No fever or chills He said appetite fine but decreased energy + slight popping L side of ear with blow ing nose. No ST He said over month he has tried dayquil, nyquil without relief. Afrin nasal spray minimal relief over weekend [facility] Medical History (Updated 01/02/25 @ 15:40 by Alivia Muñoz PA-C) Neuropathy Ruptured intervertebral disc Sciatica Type 2 diabetes mellitus with hemoglobin A1c goal of less than 7.0% Calcification of aortic valve Low testosterone level in male Prediabetes Foreign body in left foot Wound of left foot Eczema Factor 5 Leiden mutation, heterozygous Proteinuria Heart murmur Pedal edema Class 1 obesity with body mass index (BMI) of 34.0 to 34.9 in adult NAION (non-arteritic anterior ischemic optic neuropathy) Tubular adenoma Labyrinthitis Chronic sinusitis Nasal polyposis Establishing care with new doctor, encounter for Psoriasis Glaucoma Back pain Squamous cell carcinoma of skin of chest Diabetes Seizure disorder Lumbar disc disease Shortness of breath on exertion Hypercholesteremia HTN (hypertension) Surgical History History of resection of squamous cell skin carcinoma of left 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 History of vasectomy H/O sinus surgery History of colonoscopy (~12/28/19) H/O nasal polypectomy Family History Father Stroke Mother Heart problem Social History Housing: House Alcohol intake: current Alcohol intake frequency: a few times a week Patient Tobacco Use Status: Former Tobacco user Tobacco use type: Cigarette Advance Directives Date on File: 03/25/14 service: No Current occupational status: retired Cognitive needs: No Hearing needs: No Vision needs: Yes (reading glasses) Review of Systems Const Denies chills, Reports fatigue, Denies fever(s) and Reports headache(s) (sinus) Eyes Denies change in vision ENT Denies dizziness, Reports otalgia (popping with sneezing/blowing nose), Reports headache(s) (sinus), Reports nasal congestion, Reports sinus pain, Reports sinus pressure and Denies sore throat Card Denies chest pain, Denies syncope and Reports dyspnea Resp Reports chest congestion, Reports cough, Reports dyspnea and Reports wheezing Musc Denies myalgias Skin/Breast Denies rash Neuro Denies dizziness, Denies syncope and Reports headache(s) (sinus) Endo Reports fatigue Aller/Immun Reports wheezing Physical Exam Exam Exam: General: Non-toxic, NAD. Speaking full sentences. Skin: Warm dry throughout. No facial edema or erythema appreciated Eye: EOMI, PERRL HENT: Airway patent. Uvula midline. No pharyngeal erythema or edema. No LESSON INSTRUCTOR. Bilateral canals clear. TM have slight erythema without bulging bilaterally. + fluid behind membrane. No TM perforation or hemotympanum noted. No nasal septal hematoma. + congestion/rhinorrhea and boggy turbinates. + maxillary sinus ttp bilaterally Respiratory: + rhonchi and slight wheeze bilaterally. No stridor or accessory muscle use on exam. Cardiac: RRR. No murmur MSK: Full ROM extremities. Neurology: Alert. No aphasia or facial droop. Gait without abnormality Psych: Good mood and affect Vital Signs: Last Vital Signs Temp 98.3 F 01/02/25 15:06 Pulse 89 01/02/25 15:06 BP 164/80 H 01/02/25 15:06 Pulse Ox 95 01/02/25 15:06 Oxygen Delivery Method Room Air 01/02/25 15:06 BMI result Body Mass Index 33.3 Assessment & Plan Assessment & Plan (1) Bacterial sinusitis: Code(s): J32.9 - Chronic sinusitis, unspecified; B96.89 - Other specified bacterial agents as the cause of diseases classified elsewhere Plan: Patient seen and evaluated. +bacterial sinusitis on exam Lungs + rhonchi without rales Will tx with augmentin, prednisone Declined tessalon F/U with PCP Patient gave verbal understanding and had no additional questions or concerns at time of discharge All questions answered (2) Bronchitis: Code(s): J40 - Bronchitis, not specified as acute or chronic Plan: see management above Medications: New amoxicillin-pot clavulanate 875-125 mg 1 tab PO BID 20 tabs 0RF prednisone 40 mg (2 x 20 mg) PO DAILY 10 tabs 0RF Coding Level of Care Code Est Pt Level 3 (13396) Diagnoses Bacterial sinusitis J32.9; B96.89 Bronchitis J40
== END 2025-01-02 15:51 | disposition home or self-care (01) ==
PROVIDERS: PCP Internal Medicine; Visit Provider Physician Assistant
DX: J32.9 Chronic sinusitis, unspecified (principal); B96.89 Other specified bacterial agents as the cause of diseases classified elsewhere; J40 Bronchitis, not specified as acute or chronic

== ENCOUNTER → 2025-01-02 15:02 | Outpatient (BNVA) | payer MEDICARE, SELFPAY | PROVIDERS: PCP Internal Medicine; Visit Provider Physician Assistant | DX: J40 Bronchitis, not specified as acute or chronic (principal); J32.9 Chronic sinusitis, unspecified; B96.89 Other specified bacterial agents as the cause of diseases classified elsewhere | CPT/HCPCS: 99212 ==

== ENCOUNTER 2025-01-16 10:33 | Outpatient (AMB) | payer MEDICARE, SELFPAY ==
--- NOTE | 2025-01-16 10:39 | A.OFFVIS_ITS ---
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 Required: No Allergies Shellfish Allergy (Intermediate, Uncoded 01/16/25 10:41) ITCHING/CHEST PRESSURE Medication List - Last Reconciled 01/16/25 by Allie Baig LPN aspirin 325 mg PO DAILY atorvastatin 40 mg PO DAILY betamethasone dipropionate 0.05% appl topical diazepam 5 mg PO DAILY PRN hydrochlorothiazide 25 mg PO DAILY 90 days hydrochlorothiazide 12.5 mg PO DAILY hydrocortisone 2.5% 1 appl topical BID-TID PRN lisinopril 40 mg PO DAILY metformin 500 mg PO BID montelukast 10 mg PO DAILY 90 days multivitamin 1 tab PO DAILY phenytoin sodium extended 400 mg (4 x 100 mg) PO DAILY tadalafil (Cialis) 20 mg PO DAILY PRN 30 days tadalafil (Cialis) 5 mg PO DAILY 90 days timolol maleate 0.5% 1 drp ophthalmic (eye) DAILY HPI HPI S/P Aurelio L4 TFESI: Details: History of Present Illness The patient is a 69 year old individual presenting for a follow-up visit after receiving bilateral L4 transforaminal epidural steroid injections two months ago for chronic low back pain and sciatica. Following the injections, the patient experienced soreness for a few days, followed by a period of improvement. Subsequently, the patient experienced a severe flare-up of pain in the right hip, described as throbbing, jabbing, and stabbing, rated 8-9/10, which made walking painful. The patient used a few leftover oxycodone tablets from a prev ious trigger finger surgery for this pain, which subsided over approximately a week and a half. The patient reports being back to baseline since the episode resolved and states the overall effect of the injections was good at first but dissipated gradually. He is now back to baseline 2 months out. The patient's most bothersome chronic symptom is numbness in the thigh, extending from the knee to the hip and from the knee to the ankle. This lack of sensation impairs proprioception, causing nervousness on stairs and escalators and has resulted in falls. Pain Description - Location: The patient reports a history of sciatica and experienced a recent episode of severe pain in the right hip. - Quality: During the recent flare, the pain was described as throbbing, jabbing, stabbing, it was like somebody was putting a hot needle... into my hip. - Severity: The hip pain was rated an 8-9 on a 1-10 scale when walking. - Associated symptoms: The patient reports chronic numbness in the thigh, from knee to hip and knee to ankle. - Functional Impact: The severe hip pain made walking difficult. - Chronic numbness causes difficulty with stairs and escalators, requiring the patient to look down to see where the patient's feet are going, and has led to falls. - Relieving Factors: The patient took a few oxycodone tablets for the severe pain flare. Physical Exam - Appears afebrile. - Alert and oriented. - Mood and affect appropriate. - Follows and participates in conversation appropriately. - Respiratory effort is unlabored. Results - Imaging: An MRI from April of this year shows nerve compression at the L4 level bilaterally. Pain Management - Analgesia: The patient received bilateral L4 transforaminal epidural steroid injections two months ago with notable but brief relief, and is currently back to baseline pain. - The patient took a few leftover oxycodone tablets for a severe pain flare-up. - Activities of Daily Living: Chronic numbness from the knee to the hip and from the knee to the ankle affects the patient's ability to navigate stairs and escalators, causing nervousness and falls. - Affect: The patient expressed that not having sensation in the thigh is the biggest irritation. - Aberrant Drug-Related Behaviors: The patient used leftover opioid medication from a prior surgery for a severe pain episode but stated, I don't like taking anything I don't need to take. [facility] Medical History (Updated 01/02/25 @ 15:40 by Alivia Muñoz PA-C) Neuropathy Ruptured intervertebral disc Sciatica Type 2 diabetes mellitus with hemoglobin A1c goal of less than 7.0% Calcification of aortic valve Low testosterone level in male Prediabetes Foreign body in left foot Wound of left foot Eczema Factor 5 Leiden mutation, heterozygous Proteinuria Heart murmur Pedal edema Class 1 obesity with body mass index (BMI) of 34.0 to 34.9 in adult NAION (non-arteritic anterior ischemic optic neuropathy) Tubular adenoma Labyrinthitis Chronic sinusitis Nasal polyposis Establishing care with new doctor, encounter for Psoriasis Glaucoma Back pain Squamous cell carcinoma of skin of chest Diabetes Seizure disorder Lumbar disc disease Shortness of breath on exertion Hypercholesteremia HTN (hypertension) Surgical History History of resection of squamous cell skin carcinoma of left yarsanism History of vasectomy H/O sinus surgery History of colonoscopy (~12/28/19) H/O nasal polypectomy Family History Father Stroke Mother Heart problem Social History Housing: House Alcohol intake: current Alcohol intake frequency: a few times a week Patient Tobacco Use Status: Former Tobacco user Tobacco use type: Cigarette Advance Directives Date on File: 03/25/14 service: No Current occupational status: retired Cognitive needs: No Hearing needs: No Vision needs: Yes (reading glasses) Physical Exam Vital Signs: Last Vital Signs Pulse 91 01/16/25 10:40 Resp 16 01/16/25 10:40 BP 181/84 H 01/16/25 10:40 Pulse Ox 97 01/16/25 10:40 Oxygen Delivery Method Room Air 01/16/25 10:40 BMI result Body Mass Index 33.9 Assessment & Plan Assessment & Plan (1) Lumbar radiculopathy: Code(s): M54.16 - Radiculopathy, lumbar region Category: Medical Plan Plan Patient was informed and verbally consented to the use of an ambient scribe for clinic note documentation during this visit. 1. Chronic Low Back Pain With Sciatica - The patient's recent bilateral L4 transforaminal epidural steroid injections provided good 50%+ but brief relief, with symptoms returning to baseline. - A subsequent severe flare-up of right hip pain was likely a manifestation of the underlying sciatica. - The patient's chronic numbness is secondary to bilateral nerve compression at L4, as seen on the MRI from April. - Surgical intervention is not recommended at this time, as the patient is in a [place] area where the risk of worsening symptoms is significant (50/50), and the patient wishes to avoid surgery. - The patient is agreeable to another round of injections to assess for any increased benefit. - Plan to schedule repeat bilateral L4-5 transforaminal epidural steroid injections at the 3 months bimal from last round. Discussion Notes I reviewed the patient's clinical course since the bilateral L4 transforaminal epidural steroid injections two months prior. I explained that the severe pain episode in the hip was likely a flare-up of the underlying sciatica. I reviewed the MRI from April of this year with the patient, showing bilateral nerve compression at the L4 level, which is the likely cause of the numbness in the leg. We discussed that the prognosis for the return of sensation is uncertain. We discussed surgical options and I advised that due to the nature of the findings, there is a 50/50 chance of improvement versus worsening of symptoms, and the patient agreed with my recommendation to avoid surgery at this time. The patient expressed interest in trying another round of injections. We will proceed with scheduling repeat bilateral L4-5 transforaminal epidural steroid injections in one month to assess for any increasing returns. I also encouraged the patient to continue with stretching to help maintain mobility. Patient Instructions - Our office will call you to schedule another round of steroid injections for your lower back in about one month. - The goal of repeating the injections is to see if we can achieve better or longer-lasting pain relief. - Continue with your stretching exercises, as this can help keep your back and legs moving. - At this time, we do not recommend surgery, as the risks of making your symptoms worse are significant. - Please be very careful when using stairs or escalators due to the numbness in your leg. Always watch where you place your feet to help prevent falls. Coding Level of Care Code Est Pt Level 4 (64757) Diagnoses Lumbar radiculopathy M54.16
[2025-01-16 10:40] VITALS: BP 181/84; PULSE 91; RESP 16; O2SAT 97; BMI 33.9
== END 2025-01-16 10:59 | disposition home or self-care (01) ==
LOC: HO.PMC 10:34
PROVIDERS: PCP Internal Medicine; Visit Provider Internal Medicine
DX: M54.16 Radiculopathy, lumbar region (principal)
CPT/HCPCS: 99214

== ENCOUNTER → 2025-01-16 10:33 | Outpatient (BNVA) | payer MEDICARE, SELFPAY | PROVIDERS: PCP Internal Medicine; Visit Provider Internal Medicine | DX: M54.16 Radiculopathy, lumbar region (principal) | CPT/HCPCS: 99212 ==

== ENCOUNTER 2025-02-06 13:32 | Outpatient (AMB) | payer MEDICARE, SELFPAY ==
[2025-02-06 13:42] VITALS: BP 165/79; PULSE 84; RESP 14; TEMP 36.5; O2SAT 97; BMI 33.9
--- NOTE | 2025-02-06 13:42 | A.OFFPC_ITS ---
Vital Signs 02/06/25 13:42 Height 5 ft 8.5 in Weight 226 lb BMI 33.9 BP 165/79 H Blood Pressure Location Rt brachial Position Sitting Respiration 14 Pulse 84 Pulse Source Pulse Oximeter Temp 97.7 F Temp Source Temporal Artery Scan Pulse Oximetry (%) 97 Oxygen Delivery Method Room Air Intake Visit Reasons: 3m Follow up Solar Development Engineer Required: No Accompanied by: Self / Same As Patient Allergies Shellfish Allergy (Intermediate, Uncoded 02/06/25 16:17) ITCHING/CHEST PRESSURE Medication List - Last Reconciled 02/06/25 by Mary Ellen Srivastava PA-C aspirin 325 mg PO DAILY atorvastatin 40 mg PO DAILY betamethasone dipropionate 0.05% appl topical diazepam 5 mg PO DAILY PRN hydrochlorothiazide 25 mg PO DAILY hydrocortisone 2.5% 1 appl topical BID-TID PRN lisinopril 40 mg PO DAILY metformin 500 mg PO BID montelukast 10 mg PO DAILY 90 days multivitamin 1 tab PO DAILY phenytoin sodium extended 400 mg (4 x 100 mg) PO DAILY tadalafil (Cialis) 5 mg PO DAILY 90 days timolol maleate 0.5% 1 drp ophthalmic (eye) DAILY Tobacco use date assessed: 11/07/24 Dental Screening Dental Screen Date: 07/11/24 HPI HPI Comments History of Present Illness Details History of Present Illness The patient is a 69 year old male presenting for a three-month follow-up on his diabetes and a pre-operative evaluation for cataract surgery on March 04 and March 18. His type 2 diabetes has shown significant improvement, with a recent HbA1c of 6.2. He has successfully reduced his metformin dose from 1000 mg twice a day to 500 mg twice a day and is tolerating the regular-release formulation well. He hopes to lose an additional 25 pounds, which may help further improve his glycemic control. He has chronic back pain, which he describes as his back falling apart, and is followed by a painting technician. A recent MRI showed no improvement compared to prior imaging. A trial of cortisone injections a couple of months ago resulted in 4-5 days of soreness, followed by 4-5 days of relief, before returning to baseline. He recently experienced an exacerbation of hip pain and sciatica, which disrupted his sleep and ability to sit comfortably. He previously received prescriptions for oxycodone 5 mg from another provider, which he used sparingly, but that provider stopped prescribing it due to increased scrutiny. His hypertension is an ongoing issue, with his blood pressure running high recently. His hydrochlorothiazide dose was recently increased to 25 mg, and he is also on lisinopril 40 mg, which is a maximum dose. The patient has chronic kidney disease with a kidney function of 48 and is followed by a tomato grader, Dr. Cao. He also has a history of a seizure disorder, Factor V Leiden mutation, hypercholesterolemia, obesity, heart murmur, and eczema. He is scheduled for cataract surgery on his left eye on March 04 and his right eye on March 18. Social History - Functional Status: Reports his chronic back pain and recent sciatica flare have impacted his ability to sleep and sit comfortably. [facility] Medical History (Updated 02/06/25 @ 16:24 by Mary Ellen Srivastava PA-C) Cataract Pre-op evaluation Pre-operative clearance Neuropathy Ruptured intervertebral disc Sciatica Type 2 diabetes mellitus with hemoglobin A1c goal of less than 7.0% Calcification of aortic valve Low testosterone level in male Prediabetes Foreign body in left foot Wound of left foot Eczema Factor 5 Leiden mutation, heterozygous Proteinuria Heart murmur Pedal edema Class 1 obesity with body mass index (BMI) of 34.0 to 34.9 in adult NAION (non-arteritic anterior ischemic optic neuropathy) Tubular adenoma Labyrinthitis Chronic sinusitis Nasal polyposis Establishing care with new doctor, encounter for Psoriasis Glaucoma Back pain Squamous cell carcinoma of skin of chest Diabetes Seizure disorder Lumbar disc disease Shortness of breath on exertion Hypercholesteremia HTN (hypertension) Surgical History History of resection of squamous cell skin carcinoma of left gnosticist History of vasectomy H/O sinus surgery History of colonoscopy (~12/28/19) H/O nasal polypectomy Family History Father Stroke Mother Heart problem Social History Housing: House Alcohol intake: current Alcohol intake frequency: a few times a week Patient Tobacco Use Status: Former Tobacco user Tobacco use type: Cigarette Advance Directives Date on File: 03/25/14 service: No Current occupational status: retired Cognitive needs: No Hearing needs: No Vision needs: Yes (reading glasses) Questionnaire PHQ-9 Over the last 2 weeks, how often have you been bothered by any of the following problems? 1. Little interest or pleasure in doing things: not at all 2. Feeling down, depressed, or hopeless: not at all 3. Trouble falling or staying asleep, or sleeping too much: not at all 4. Feeling tired or having little energy: not at all 5. Poor appetite or overeating: not at all 6. Feeling bad about yourself - or that you are a failure or have let yourself or your family down: not at all 7. Trouble concentrating on things, such as reading the newspaper or watching television: not at all 8. Moving or speaking so slowly that other people could have noticed. Or the opposite - being so fidgety or restless that you have been moving around a lot more than usual: not at all 9. Thoughts that you would be better off or of hurting yourself in some way: not at all Total score: 0 Depression Screening Interpretation: Negative Depression Screening Done: Yes 12032 - PHQ-9 Billing: Yes Source: Developed by Drs. Kareem Cruz, Sadie Hogan, Eder Mittal and colleagues, with an educational leah from [employer] Thrive Questionnaire Date Thrive assessed: 08/08/24 I am a: Patient What is your living situation today?: I have a steady place to live Within the past 12 months, did the food you bought not last and you didn't have the money to get more?: Never true Within the past 12 months, did you worry whether your food would run out before you got money to buy more?: Never true Do you have trouble paying for medicines?: No Do you have trouble getting transportation to medical appointments?: No Do you have trouble paying your heating and electricity bill?: No Do you have trouble taking care of your child, family member or friend?: No Do you have trouble with day-to-day activities such as bathing, preparing meals, shopping, managing finances, etc.?: No Are you currently unemployed and looking for a job?: No Are you interested in more education?: No Please select the resources that you would like help with: None Currently or been in a relationship where the following occur: No concerns reported THRIVE Score: 0 AUDIT C Alcohol Use Questionnaire (AUDIT-C) 1. How often do you have a drink containing alcohol?: 2-3 times a week 2. How many drinks containing alcohol do you have on a typical day when you are drinking?: 1 or 2 3. How often do you have six or more drinks on one occasion?: Never Total Score: 3 Score Reviewed/Action Taken: No ERASTO-7 AMB Questionnaire ERASTO-7 Date ERASTO - 7 assessed: 08/08/24 Feeling nervous, anxious, or on edge: 0 = Not at all Not being able to stop or control worryin = Not at all Worrying too much about different things: 0 = Not at all Trouble relaxin = Not at all Being so restless that it is hard to sit still: 0 = Not at all Becoming easily annoyed or irritable: 0 = Not at all Feeling afraid as if something awful might happen: 0 = Not at all Total ERASTO-7 score (0-4 normal; 5-9 mild; 10-14 moderate; 15-21 severe): 0 Source: Developed by Drs. Kareem Cruz, Sadie Hogan, Eder Mittal and colleagues, with an educational leah from [employer] ERASTO-7 Assessment Billing ERASTO-7 Assessment Tool: ERASTO-7 Assessment 56290 Review of Systems Narrative Review of Systems - Constitutional: Reports being in pain during the visit. - Eyes: Reports having cataracts. Reports poor vision out of the left eye. - Musculoskeletal: Reports chronic back pain. Reports recent aggravation of hip pain and sciatica. Const All systems reviewed & are unremarkable except as noted in HPI and below Physical exam (Primary Care) Vital Signs: Last Vital Signs Temp 97.7 F 02/06/25 13:42 Pulse 84 02/06/25 13:42 Resp 14 02/06/25 13:42 BP 165/79 H 02/06/25 13:42 Pulse Ox 97 02/06/25 13:42 Oxygen Delivery Method Room Air 02/06/25 13:42 Care Plan Goal for BP management: <140/90 patient to continue lisinopril to 40 mg daily, hydrochlorothiazide 25 mg daily and will add amlodipine 5 mg after speaking to the patient's tomato grader Dr. Athreya BMI result Body Mass Index 33.9 BMI Assessment/Plan discussion: High BMI High, discussed plan: lifestyle, weight reduction, dietary, physical activity, alcohol moderation and other Tobacco/Smoking Status: Tobacco use Status Tobacco use date assessed 11/07/24 02/06/25 13:44 Patient Tobacco Use Status Former Tobacco user 02/06/25 13:44 Tobacco use type Cigarette 02/06/25 13:44 PHQ-9: PHQ-9 Score PHQ-9: Total score 0 02/06/25 13:56 Depression Screening Interpretation: Negative Thrive Assessment: Date of Thrive Assessment Date Thrive assessed 08/08/24 02/06/25 13:44 Currently or been in a relationship where the following occur: No concerns reported Narrative Physical Exam Appearance: Alert. Oriented X3. No acute distress. Head: Normal external exam. Normocephalic. Atraumatic. Eyes: Pupils are equal, round, and reactive to light. Extraocular movements intact. Conjunctiva and sclera normal. Eyelids normal. Throat: Pharynx normal. Uvula midline. Moist mucous membranes. Neck: Normal inspection. Neck supple. Full range of motion. Cardiovascular: Normal heart rate and rhythm. Heart sound normal. No murmurs noted. Pulses normal throughout. Respiratory: No respiratory distress. Painless inspiration. Breath sounds normal. No wheezes/rales/rhonchi noted. No accessory muscle usage noted or decreased air movement noted. Abdomen: Soft and nontender. No distention noted. No organomegaly noted. No visible injury noted. Back: Full range of motion noted. Patient reports ongoing back pain, aggravated by recent activity, with episodes of sciatica. Skin: Skin warm and dry. Normal skin color. Normal skin turgor. No rashes/lesions/lacerations noted. Extremities: No lower extremity edema. Extremities exhibit normal range of motion. . Neuro: Oriented X 3. No motor deficit. No sensory deficit. Reflexes normal. Results AMB Hemoglobin A1c AMB Hemoglobin A1c 6.2 % Last Edit by YOLA Hernandez on 02/06/25 13:59 Results Reviewed Results Reviewed: Laboratory Last Values Hgb A1c (Clinic) 6.2 % (4.0-6.0) H 02/06/25 13:57 Results - Labs: Recent HbA1c is 6.2. - Labs: Kidney function is 48. - Labs: Cholesterol panel was done in March of this year. - Imaging: A recent MRI of his back showed no improvement compared to previous scans. Coding Level of Care Code Est Pt Level 4 (17194) Add On Problem Visit Only Diagnoses Pre-op evaluation Z01.818 Type 2 diabetes mellitus with hemoglobin A1c goal of less than 7.0% E11.9 HTN (hypertension) I10 Cataract H26.9 Lumbar radiculopathy M54.16 Additional Codes ERASTO-7 Assessment Billing - ERASTO-7 Assessment Tool: ERASTO-7 Assessment 66936 ([id number]) PHQ-9 - 87311 - PHQ-9 Billing: Yes ([id number]) Time Spent (min) 70 Assessment & Plan Assessment & Plan (1) Pre-op evaluation: Code(s): Z01.818 - Encounter for other preprocedural examination Category: Medical Plan: This visit serves as the patient's pre-operative evaluation for his upcoming cataract surgeries in February. Orders will be placed for pre-operative testing to be completed within 30 days of surgery, including a CBC, CMP, EKG, and chest x-ray. He was instructed to continue atorvastatin, montelukast, phenytoin, timolol eye drops, and multivitamins, but to hold metformin on the day of surgery and Cialis 48 hours prior. He will need to confirm with the croze cutter helper whether to hold his blood pressure medications (lisinopril, hydrochlorothiazide) on the morning of surgery. He was also counselled to discuss lens options with his surgeon, as he is interested in paying for a premium lens to potentially eliminate his need for glasses. Regarding preop clearance the patient is at acceptable risk for proposed surgery. Reviewed with the patient that no surgery is completely free of risk and that this examination is to assist the surgeon and reviewing informed co nsent. (2) Type 2 diabetes mellitus with hemoglobin A1c goal of less than 7.0%: Code(s): E11.9 - Type 2 diabetes mellitus without complications Category: Medical Plan: The patient's diabetes is well-controlled with a recent HbA1c of 6.2 on a reduce d metformin dose of 500 mg twice daily. He will continue the current metformin dose. Labs including A1c will be rechecked at his annual exam in March. (3) HTN (hypertension): Code(s): I10 - Essential (primary) hypertension Category: Medical Plan: His blood pressure is elevated despite being on lisinopril 40 mg and hydrochlorothiazide 25 mg. Due to his chronic kidney disease (kidney function 48), a consultation with his tomato grader, Dr. Cao, recommended starting the patient on amlodipine 5 mg and continuing the lisinopril 40 mg hydrochlorothiazide 25 mg. He will follow up in one month for a blood pressure check after the new medication regimen is started. He was advised to reschedule his missed appointment with nephrology. (4) Cataract: Code(s): H26.9 - Unspecified cataract Category: Medical Plan: This visit serves as the patient's pre-operative evaluation for his upcoming cat aract surgeries in February. Orders will be placed for pre-operative testing to be completed within 30 days of surgery, including a CBC, CMP, EKG, and chest x- ray. He was instructed to continue atorvastatin, montelukast, phenytoin, timolol eye drops, and multivitamins, but to hold metformin on the day of surgery and Cialis 48 hours prior. He will need to confirm with the croze cutter helper whether to hold his blood pressure medications (lisinopril, hydrochlorothiazide) on the morning of surgery. He was also counselled to discuss lens options with his surgeon, as he is interested in paying for a premium lens to potentially eliminate his need for glasses. (5) Lumbar radiculopathy: Code(s): M54.16 - Radiculopathy, lumbar region Category: Medical Plan: The patient reports significant chronic back pain and a recent sciatica flare- up, with only minimal, transient relief from a prior course of cortisone injections. A discussion will be held with his painting technician about the possibility of prescribing a small quantity of oxycodone, such as 15 pills per month, for breakthrough pain, given his history of responsible use. Surgery is not recommended at this time. Plan Plan Patient was informed and verbally consented to the use of an ambient scribe for clinic note documentation during this visit. 1. Type 2 Diabetes Mellitus The patient's diabetes is well-controlled with a recent HbA1c of 6.2 on a reduced metformin dose of 500 mg twice daily. He will continue the current metformin dose. Labs including A1c will be rechecked at his annual exam in March. 2. Hypertension His blood pressure is elevated despite being on lisinopril 40 mg and hydrochlorothiazide 25 mg. Due to his chronic kidney disease (kidney function 48), a consultation with his tomato grader, Dr. Cao, recommended starting the patient on amlodipine 5 mg and continuing the lisinopril 40 mg hydrochlorothiazide 25 mg. He will follow up in one month for a blood pressure check after the new medication regimen is started. He was advised to reschedule his missed appointment with nephrology. 3. Lumbar Radiculopathy The patient reports significant chronic back pain and a recent sciatica flare- up, with only minimal, transient relief from a prior course of cortisone injections. A discussion will be held with his painting technician about the possibility of prescribing a small quantity of oxycodone, such as 15 pills per month, for breakthrough pain, given his history of responsible use. Surgery is not recommended at this time. 4. Pre-Operative Evaluation For Cataract Surgery This visit serves as the patient's pre-operative evaluation for his upcoming cataract surgeries in February. Orders will be placed for pre-operative testing to be completed within 30 days of surgery, including a CBC, CMP, EKG, and chest x-ray. He was instructed to continue atorvastatin, montelukast, phenytoin, timolol eye drops, and multivitamins, but to hold metformin on the day of surgery and Cialis 48 hours prior. He will need to confirm with the croze cutter helper whether to hold his blood pressure medications (lisinopril, hydrochlorothiazide) on the morning of surgery. He was also counselled to discuss lens options with his surgeon, as he is interested in paying for a premium lens to potentially eliminate his need for glasses. Discussion Notes I discussed with the patient that his type 2 diabetes is well-controlled on a reduced dose of metformin and we will continue the current regimen. Regarding his elevated blood pressure, I explained that I would consult his tomato grader, Dr. Cao, before making any changes to his medications due to his chronic kidney disease. I also informed him that I would contact his pain management team to advocate for a prescription for a small number of pain pills for his back pain flares. We converted this follow-up visit into his pre-operative clearance for his upcoming cataract surgeries in February. I provided him with written instructions on which medications to continue, which to hold, and which to ask his surgeon about prior to the procedure, including holding metformin the day of surgery and Cialis 48 hours prior, and clarifying the plan for his blood pressure medications. I have ordered the necessary pre-operative EKG, chest x-ray, and lab work. He will need to return in one month for a blood pressure check. The patient understands and agrees with this plan. Orders: Orders Complete Blood Count Auto Diff Today Z00.00 - Encounter for general adult medical examination without abnormal findings Comprehensive Met. Panel Today Z00.00 - Encounter for general adult medical examination without abnormal findings Prothrombin Time INR Today Z01.818 - Encounter for other preprocedural examination AMB Hemoglobin A1c Today E11.9 - Type 2 diabetes mellitus without complications Magnesium Today Z00.00 - Encounter for general adult medical examination without abnormal findings ECG 12 lead EKG Today Z01.818 - Encounter for other preprocedural examination XR chest 2V Today Z01.818 - Encounter for other preprocedural examination Medications: New amlodipine 5 mg PO DAILY 90 tabs 3RF Refilled montelukast 10 mg PO DAILY 90 tabs 3RF 90 days Patient Instructions: Patient Instructions - Continue taking metformin 500 mg twice a day for your diabetes. - I will contact your kidney doctor about your high blood pressure and will call you with an update on your medication plan. - Please call to reschedule your missed appointment with your kidney doctor, Dr. Cao. - I will speak with your pain management doctor about getting you a prescription for a small amount of pain medication for when your back pain is severe. - For your upcoming cataract surgery, please complete the ordered blood work, EKG, and chest x-ray. These must be done within 30 days of your surgery. - Do NOT take metformin on the day of your surgery. - Do NOT take Cialis for 48 hours before your surgery. - Ask your eye surgeon if you should take your blood pressure pills (Lisinopril and Hydrochlorothiazide) on the morning of your surgery. - You can continue your other daily medications unless the surgeon tells you otherwise. - Please schedule a follow-up appointment in one month to check your blood pressure.
== END 2025-02-06 14:40 | disposition home or self-care (01) ==
LOC: HO.HMCSH 13:32
PROVIDERS: PCP Physician Assistant Medical; Visit Provider Physician Assistant Medical
DX: Z01.818 Encounter for other preprocedural examination (principal); E11.9 Type 2 diabetes mellitus without complications; I10 Essential (primary) hypertension; H26.9 Unspecified cataract; M54.16 Radiculopathy, lumbar region

== ENCOUNTER → 2025-02-06 13:32 | Outpatient (BNVA) | payer MEDICARE, SELFPAY | PROVIDERS: PCP Physician Assistant Medical; Visit Provider Physician Assistant Medical | DX: Z01.818 Encounter for other preprocedural examination (principal); E11.22 Type 2 diabetes mellitus with diabetic chronic kidney disease; M54.9 Dorsalgia, unspecified; I12.9 Hypertensive chronic kidney disease with stage 1 through stage 4 chronic kidney disease, or unspecified chronic kidney disease; N18.9 Chronic kidney disease, unspecified; H26.9 Unspecified cataract; M54.16 Radiculopathy, lumbar region | CPT/HCPCS: 83036; 96127; 99212 ==